=== PATIENT | female | born 1990 | race Caucasian/White ===

== ENCOUNTER → 2016-07-23 | Outpatient (CLI) | payer OTHER ==
[2016-07-23 11:19] LABS: Basophils % (A) 0 %; CHCM 32.2; Eosinophils # (A) 0.1 k/uL (0-0.7); Eosinophils % (A) 3 %; HCT 39.4 % (34.0-46.0); HDW 3.12; Hypochromasia Slight; Luc % (Auto) 2; Lymphocytes # (A) 1.4 k/uL (1.0-4.8); Lymphocytes % (A) 30 %; MCH 26.7 pg (25.0-35.0); MCV 80.9 fL (80.0-100.0); Mean Platelet Volume 6.9; Monocytes # (A) 0.2 k/uL (0-1.0); Monocytes % (A) 4 %; Neutrophils # (A) 2.9 k/uL (1.3-7.7); Neutrophils % (A) 61 %; RBC 4.87 m/uL (3.80-5.40); RDW 14.1 % (11.5-15.5); WBC 4.7 k/uL (3.8-10.6); WBC (Perox) 4.63
[2016-07-23 11:48] LABS: ALT 24 U/L (9-52); AST 20 U/L (14-36); Alkaline Phosphatase 64 U/L (38-126); Anion Gap 9 mmol/L; Blood Urea Nitrogen 17 mg/dL (7-17); Calcium 9.4 mg/dL (8.4-10.2); Carbon Dioxide 24 mmol/L (22-30); Chloride 108 mmol/L (98-107); Glucose 108 mg/dL (74-99); Non-African American GFR(MDRD) >60 (>60 ml/min/1.73 sqM); Potassium 4.1 mmol/L (3.5-5.1); Sodium 141 mmol/L (137-145); Total Bilirubin 0.5 mg/dL (0.2-1.3); Total Protein 7.5 g/dL (6.3-8.2)
[2016-07-24 17:05] LABS: LOG HIV Copies/mL 4.34 (<1.60)
[2016-08-01 08:18] LABS: Mis test requested (Blood) HIV-1 Integrase Geno
== END | disposition home or self-care (01) ==
LOC: LABWHC1 10:58
PROVIDERS: ATTEND Internal Medicine Infectious Disease
DX: B20 Human immunodeficiency virus [HIV] disease (principal)
CPT/HCPCS: 36415; 80053; 85025; 86360; 86780; 87536; 87901; 87906

== ENCOUNTER → 2016-10-26 | Outpatient (CLI) | payer OTHER ==
[2016-10-26 12:53] LABS: CH 27.7; CHCM 33.5; HCT 40.7 % (34.0-46.0); HDW 3.02; HGB 13.2 gm/dL (11.4-16.0); MCH 26.9 pg (25.0-35.0); MCHC 32.4 g/dL (31.0-37.0); Mean Platelet Volume 8.2; RDW 15.3 % (11.5-15.5); WBC 4.4 k/uL (3.8-10.6)
[2016-10-26 13:08] LABS: ALT 26 U/L (9-52); AST 19 U/L (14-36); Alkaline Phosphatase 68 U/L (38-126); Anion Gap 11 mmol/L; Blood Urea Nitrogen 11 mg/dL (7-17); Calcium 9.7 mg/dL (8.4-10.2); Carbon Dioxide 27 mmol/L (22-30); Chloride 104 mmol/L (98-107); Glucose 93 mg/dL (74-99); Non-African American GFR(MDRD) >60 (>60 ml/min/1.73 sqM); Potassium 4.4 mmol/L (3.5-5.1); Sodium 142 mmol/L (137-145); Total Bilirubin 0.4 mg/dL (0.2-1.3); Total Protein 7.7 g/dL (6.3-8.2)
[2016-10-27 12:01] LABS: LOG HIV Copies/mL <1.60 (<1.60)
== END | disposition home or self-care (01) ==
LOC: LABWHC1 12:05
PROVIDERS: ATTEND Internal Medicine Infectious Disease
DX: B20 Human immunodeficiency virus [HIV] disease (principal)
CPT/HCPCS: 36415; 80053; 85027; 86360; 87536

== ENCOUNTER → 2017-02-28 | Outpatient (CLI) | payer OTHER ==
[2017-02-28 14:23] LABS: Basophils % (A) 0 %; Eosinophils # (A) 0.1 k/uL (0-0.7); Eosinophils % (A) 2 %; HCT 40.8 % (34.0-46.0); HGB 13.2 gm/dL (11.4-16.0); Hypochromasia Slight; Lymphocytes # (A) 1.4 k/uL (1.0-4.8); Lymphocytes % (A) 27 %; MCH 27.7 pg (25.0-35.0); MCHC 32.3 g/dL (31.0-37.0); MCV 85.7 fL (80.0-100.0); Mean Platelet Volume 7.7; Monocytes # (A) 0.2 k/uL (0-1.0); Monocytes % (A) 4 %; Neutrophils # (A) 3.3 k/uL (1.3-7.7); Neutrophils % (A) 65 %; Platelet Count 194 k/uL (150-450); RBC 4.76 m/uL (3.80-5.40); RDW 15.1 % (11.5-15.5); WBC 5.1 k/uL (3.8-10.6)
[2017-02-28 14:28] LABS: ALT 25 U/L (9-52); AST 17 U/L (14-36); Albumin 4.3 g/dL (3.5-5.0); Alkaline Phosphatase 70 U/L (38-126); Anion Gap 10 mmol/L; Blood Urea Nitrogen 11 mg/dL (7-17); Calcium 9.6 mg/dL (8.4-10.2); Carbon Dioxide 30 mmol/L (22-30); Chloride 103 mmol/L (98-107); Glucose 85 mg/dL (74-99); Sodium 143 mmol/L (137-145); Total Bilirubin 0.2 mg/dL (0.2-1.3); Total Protein 7.1 g/dL (6.3-8.2)
[2017-03-01 12:47] LABS: T4/T8 Ratio (CD4:CD8) 0.7 (1.0-3.7)
[2017-03-01 14:53] LABS: HIV-1 RNA Not detected (Not detected); HIV-1 RNA, Quant <40 Copies/mL (<40)
== END | disposition home or self-care (01) ==
LOC: LABWHC1 13:51
PROVIDERS: ATTEND Internal Medicine Infectious Disease
DX: B20 Human immunodeficiency virus [HIV] disease (principal)
CPT/HCPCS: 36415; 80053; 85025; 86360; 87536

== ENCOUNTER 2019-10-17 20:51 | Inpatient (IN) | payer OTHER ==
--- NOTE | 2019-10-17 21:38 | XR ---
EXAMINATION TYPE: XR chest 2V DATE OF EXAM: 10/17/2019 COMPARISON: 11/20/2012 INDICATION: Short of breath TECHNIQUE: Frontal and lateral views of the chest are obtained. FINDINGS: The heart size is normal. The pulmonary vasculature is normal. Mild bibasilar infiltrates are present. A focal consolidation is not identified. Findings are nonspec ific. Infectious etiology should be considered. Consider atypical pneumonia.. IMPRESSION: 1. Mild bibasilar infiltrates which are nonspecific. Correlate for subsegmental atelectasis. Consider atypical pneumonia.
[2019-10-17 22:03] LABS: Basophils % (A) 1 %; Eosinophils % (A) 1 %; HCT 44.5 % (34.0-46.0); HGB 15.1 gm/dL (11.4-16.0); Lymphocytes # (A) 1.3 k/uL (1.0-4.8); Lymphocytes % (A) 28 %; MCH 28.5 pg (25.0-35.0); MCV 83.7 fL (80.0-100.0); Mean Platelet Volume 8.5; Monocytes # (A) 0.2 k/uL (0-1.0); Monocytes % (A) 4 %; Neutrophils # (A) 3.2 k/uL (1.3-7.7); Neutrophils % (A) 66 %; Platelet Count 193 k/uL (150-450); RBC 5.32 m/uL (3.80-5.40); RDW 12.7 % (11.5-15.5); WBC 4.9 k/uL (3.8-10.6)
[2019-10-17 22:10] LABS: Appearance,Urine Cloudy (Clear); Bacteria,Urine Occasional /hpf; Bilirubin,Urine Negative (Negative); Blood,Urine Moderate (Negative); Budding Yeast,Urine Occasional /hpf; Color,Urine Light Yellow; Glucose,Urine (UA) Negative (Negative); Ketones,Urine Negative (Negative); Leukocyte Esterase,Urine Large (Negative); Nitrite,Urine Negative (Negative); PH, Urine 6.5 (5.0-8.0); Protein,Urine Negative (Negative); RBC,Urine 3 /hpf (0-5); Specific Gravity,Urine 1.004 (1.001-1.035); Squamous Epithelial Cell,Urine 8 /hpf (0-4); Urobilinogen,Urine <2.0 mg/dL (<2.0); WBC,Urine 21 /hpf (0-5)
[2019-10-17 22:16] LABS: ALT 28 U/L (4-34); AST 49 U/L (14-36); African American GFR (CKD) >90 (>60 ml/min/1.73 sqM); Alkaline Phosphatase 70 U/L (38-126); Anion Gap 11 mmol/L; Blood Urea Nitrogen 7 mg/dL (7-17); Carbon Dioxide 28 mmol/L (22-30); Chloride 99 mmol/L (98-107); Glucose 99 mg/dL (74-99); Non-African American GFR(CKD) >90 (>60 ml/min/1.73 sqM); Potassium 3.4 mmol/L (3.5-5.1); Sodium 138 mmol/L (137-145); Total Bilirubin 0.7 mg/dL (0.2-1.3); Total Protein 8.6 g/dL (6.3-8.2)
--- NOTE | 2019-10-17 22:30 | ED ---
SOB HPI - General Source: patient Mode of arrival: ambulatory Limitations: no limitations <Monique Orellana - Last Filed: 10/18/19 10:11> <Katerina Kolb - Last Filed: 10/21/19 22:58> - General Chief Complaint: Shortness of Breath Stated Complaint: SOB, Dx Bronchitis Time Seen by Provider: 10/17/19 21:03 - History of Present Illness Initial Comments: 29-year-old female with history of asthma presents today for chief complaint of cough, URI. Patient states for roughly 3 weeks she has had a cough and concern for covid. She states that her symptoms have been progressive especially the dyspnea. She states lying down or any activity causes significant SOB. Patient states she doesnt have chest pain but feels like she cant breath correctly. Patient admits to chills, on and off fevers. Denies sore throat, diarrhea, vomiting, abdominal pain, denies neck stiffness. Patient upon arrival does appear to have some dyspnea when talking but is able to complete full sentences. HR elevated, oxygen saturation is satisfactory. States she was evaluated and discharged from [facility] yesterday but symptoms have worsened. (Monique Orellana) - Related Data Home Medications Medication Instructions Recorded Confirmed Azithromycin [Zithromax Z-pack] See Taper PO DIRECTED 10/17/19 10/17/19 Allergies Allergy/AdvReac Type Severity Reaction Status Date / Time cephalexin monohydrate Allergy Dyspnea Verified 10/17/19 22:47 [From Keflex] Penicillins Allergy Swelling Verified 10/17/19 22:47 phenytoin sodium Allergy Unknown Verified 10/17/19 22:47 [From Dilantin] phenytoin sodium extended Allergy Unknown Verified 10/17/19 22:47 [From Dilantin] Review of Systems ROS Other: All systems not noted in ROS Statement are negative. <Monique Orellana - Last Filed: 10/18/19 10:11> ROS Other: All systems not noted in ROS Statement are negative. <Katerina Kolb - Last Filed: 10/21/19 22:58> ROS Statement: Those systems with pertinent positive or pertinent negative responses have been documented in the HPI. Past Medical History Past Medical History: Asthma History of Any Multi-Drug Resistant Organisms: None Reported Past Surgical History: No Surgical Hx Reported Past Psychological History: No Psychological Hx Reported Smoking Status: Former smoker Past Alcohol Use History: None Reported Past Drug Use History: None Reported <Monique Orellana - Last Filed: 10/18/19 10:11> General Exam Limitations: no limitations <Monique Orellana - Last Filed: 10/18/19 10:11> - General Exam Comments Initial Comments: General: The patient is awake and alert, in no distress Eye: +3 mm pupils are equal, round and reactive to light, extra-ocular movements are intact. No nystagmus. There is normal conjunctiva bilaterally. No signs of icterus. Ears, nose, mouth and throat: There are moist mucous membranes and no oral lesions. Uvula midline. Neck: The neck is supple, there is no tenderness or JVD. No nuchal rigidity Cardiovascular: There is a regular rate and rhythm. No murmur, rub or gallop is appreciated. Respiratory: Respirations are mildly labored, breath sounds are equal. Rhonchi noted. No wheezes, stridor, rales. Gastrointestinal: Soft, non-distended, non-tender abdomen without masses or organomegaly noted. There is no rebound or guarding present. Musculoskeletal: Normal ROM, no tenderness. Strength 5/5. Sensation intact. Radial pulses equal bilaterally 2+. Neurological: A&O x 3. CN II-XII intact grossly, There are no obvious motor or sensory deficits. Coordination appears grossly intact. Speech is normal. Skin: Skin is warm and dry and no rashes or lesions are noted. Psychiatric: Cooperative, appropriate mood & affect, normal judgment. (Monique Orellana) Course Vital Signs 10/17/19 10/17/19 10/17/19 20:57 22:01 22:31 Temperature 98.9 F Pulse Rate 127 H 118 H Pulse Rate [ Pulse Oximetery ] Respiratory 18 18 Rate Blood Pressure 128/87 Blood Pressure [Left Arm] O2 Sat by Pulse 96 100 Oximetry 10/17/19 10/18/19 23:30 00:19 Temperature 98.1 F 98.6 F Pulse Rate 106 H Pulse Rate [ 109 H Pulse Oximetery ] Respiratory 20 21 Rate Blood Pressure 118/97 Blood Pressure 122/88 [Left Arm] O2 Sat by Pulse 95 98 Oximetry Medical Decision Making - Lab Data Result diagrams: 10/18/19 06:39 10/18/19 06:39 <Monique Orellana - Last Filed: 10/18/19 10:11> - Lab Data Result diagrams: 10/21/19 06:24 10/21/19 06:23 <Katerina Kolb - Last Filed: 10/21/19 22:58> - Medical Decision Making Labs stable, but there is a pattern of slight elevation of AST, D-dimer and LDH consistent with concern for Covid. Patient CTA ground glass atypical pneumonia. No PE. Patient EKG sinus tachycardia. Patient troponin (-). Given patient appears SOB, with concerning b/l pneumonia on XR will admit for monitoring. Patient did not have wheeze and appeared to have good airmovement, q4h albuterol treatments scheduled. Patient case discussed wtih Dr. Kolb who is agreeable to care plan. At this time I do not feel patient is septic. (Monique Orellana) I was available for consultation in the emergency department. The history and physical exam were done by the midlevel provider. I was consulted for this patients care. I reviewed the case with the midlevel provider and based on their presentation of the patient, I agree with the assessment, medical decision making and plan of care as documented. I evaluated the patient myself Chart was dictated using [employer] PTY dictation software. Attempts were made to correct any dictation errors however some typographical errors may persist. Patient was seen during a national state of emergency due to the Covid-19 pandemic. (Katerina Kolb) - Lab Data Lab Results 10/17/19 10/17/19 10/17/19 Range/Units 21:50 21:50 21:50 WBC 4.9 (3.8-10.6) k/uL RBC 5.32 (3.80-5.40) m/uL Hgb 15.1 (11.4-16.0) gm/dL Hct 44.5 (34.0-46.0) % MCV 83.7 (80.0-100.0) fL MCH 28.5 (25.0-35.0) pg MCHC 34.0 (31.0-37.0) g/dL RDW 12.7 (11.5-15.5) % Plt Count 193 (150-450) k/uL Neutrophils % 66 % Lymphocytes % 28 % Monocytes % 4 % Eosinophils % 1 % Basophils % 1 % Neutrophils # 3.2 (1.3-7.7) k/uL Lymphocytes # 1.3 (1.0-4.8) k/uL Monocytes # 0.2 (0-1.0) k/uL Eosinophils # 0.0 (0-0.7) k/uL Basophils # 0.0 (0-0.2) k/uL Hypochromasia PT (9.0-12.0) sec INR (<1.2) APTT (22.0-30.0) sec Fibrinogen (200-500) mg/dL D-Dimer (<0.60) mg/L FEU Sodium 138 (137-145) mmol/L Potassium 3.4 L (3.5-5.1) mmol/L Chloride 99 (98-107) mmol/L Carbon Dioxide 28 (22-30) mmol/L Anion Gap 11 mmol/L BUN 7 (7-17) mg/dL Creatinine 0.68 (0.52-1.04) mg/dL Est GFR (CKD-EPI)AfAm >90 (>60 ml/min/1.73 sqM) Est GFR (CKD-EPI)NonAf >90 (>60 ml/min/1.73 sqM) Glucose 99 (74-99) mg/dL Plasma Lactic Acid Gerson (0.7-2.0) mmol/L Calcium 9.0 (8.4-10.2) mg/dL Magnesium (1.6-2.3) mg/dL Ferritin (10.0-291.0) ng/mL Total Bilirubin 0.7 (0.2-1.3) mg/dL AST 49 H (14-36) U/L ALT 28 (4-34) U/L Alkaline Phosphatase 70 (38-126) U/L Lactate Dehydrogenase (313-618) U/L LD Isoenzymes (100-200) U/L LD 1 (19-38) % LD 2 (30-43) % LD 3 (16-26) % LD 4 (3-12) % LD 5 (3-14) % Creatine Kinase (30-135) U/L Troponin I (0.000-0.034) ng/mL C-Reactive Protein (<10.0) mg/L NT-Pro-B Natriuret Pep pg/mL Total Protein 8.6 H (6.3-8.2) g/dL Albumin 4.0 (3.5-5.0) g/dL Procalcitonin (0.02-0.09) ng/mL Urine Color Light Yellow Urine Appearance Cloudy H (Clear) Urine pH 6.5 (5.0-8.0) Ur Specific [place] 1.004 (1.001-1.035) Urine Protein Negative (Negative) Urine Glucose (UA) Negative (Negative) Urine Ketones Negative (Negative) Urine Blood Moderate H (Negative) Urine Nitrite Negative (Negative) Urine Bilirubin Negative (Negative) Urine Urobilinogen <2.0 (<2.0) mg/dL Ur Leukocyte Esterase Large H (Negative) Urine RBC 3 (0-5) /hpf Urine WBC 21 H (0-5) /hpf Ur Squamous Epith Cells 8 H (0-4) /hpf Urine Bacteria Occasional H (None) /hpf Urine Yeast (Budding) Occasional H (None) /hpf Urine HCG, Qual (Not Detectd) Coronavirus (PCR) (Not Detected) 10/17/19 10/17/19 10/17/19 Range/Units 21:50 21:50 21:50 WBC (3.8-10.6) k/uL RBC (3.80-5.40) m/uL Hgb (11.4-16.0) gm/dL Hct (34.0-46.0) % MCV (80.0-100.0) fL MCH (25.0-35.0) pg MCHC (31.0-37.0) g/dL RDW (11.5-15.5) % Plt Count (150-450) k/uL Neutrophils % % Lymphocytes % % Monocytes % % Eosinophils % % Basophils % % Neutrophils # (1.3-7.7) k/uL Lymphocytes # (1.0-4.8) k/uL Monocytes # (0-1.0) k/uL Eosinophils # (0-0.7) k/uL Basophils # (0-0.2) k/uL Hypochromasia PT (9.0-12.0) sec INR (<1.2) APTT (22.0-30.0) sec Fibrinogen (200-500) mg/dL D-Dimer (<0.60) mg/L FEU Sodium (137-145) mmol/L Potassium (3.5-5.1) mmol/L Chloride (98-107) mmol/L Carbon Dioxide (22-30) mmol/L Anion Gap mmol/L BUN (7-17) mg/dL Creatinine (0.52-1.04) mg/dL Est GFR (CKD-EPI)AfAm (>60 ml/min/1.73 sqM) Est GFR (CKD-EPI)NonAf (>60 ml/min/1.73 sqM) Glucose (74-99) mg/dL Plasma Lactic Acid Gerson (0.7-2.0) mmol/L Calcium (8.4-10.2) mg/dL Magnesium (1.6-2.3) mg/dL Ferritin (10.0-291.0) ng/mL Total Bilirubin (0.2-1.3) mg/dL AST (14-36) U/L ALT (4-34) U/L Alkaline Phosphatase (38-126) U/L Lactate Dehydrogenase (313-618) U/L LD Isoenzymes (100-200) U/L LD 1 (19-38) % LD 2 (30-43) % LD 3 (16-26) % LD 4 (3-12) % LD 5 (3-14) % Creatine Kinase (30-135) U/L Troponin I <0.012 (0.000-0.034) ng/mL C-Reactive Protein (<10.0) mg/L NT-Pro-B Natriuret Pep 29 pg/mL Total Protein (6.3-8.2) g/dL Albumin (3.5-5.0) g/dL Procalcitonin (0.02-0.09) ng/mL Urine Color Urine Appearance (Clear) Urine pH (5.0-8.0) Ur Specific [place] (1.001-1.035) Urine Protein (Negative) Urine Glucose (UA) (Negative) Urine Ketones (Negative) Urine Blood (Negative) Urine Nitrite (Negative) Urine Bilirubin (Negative) Urine Urobilinogen (<2.0) mg/dL Ur Leukocyte Esterase (Negative) Urine RBC (0-5) /hpf Urine WBC (0-5) /hpf Ur Squamous Epith Cells (0-4) /hpf Urine Bacteria (None) /hpf Urine Yeast (Budding) (None) /hpf Urine HCG, Qual Not Detected (Not Detectd) Coronavirus (PCR) (Not Detected) 10/17/19 10/17/19 10/17/19 Range/Units 22:47 22:47 22:47 WBC (3.8-10.6) k/uL RBC (3.80-5.40) m/uL Hgb (11.4-16.0) gm/dL Hct (34.0-46.0) % MCV (80.0-100.0) fL MCH (25.0-35.0) pg MCHC (31.0-37.0) g/dL RDW (11.5-15.5) % Plt Count (150-450) k/uL Neutrophils % % Lymphocytes % % Monocytes % % Eosinophils % % Basophils % % Neutrophils # (1.3-7.7) k/uL Lymphocytes # (1.0-4.8) k/uL Monocytes # (0-1.0) k/uL Eosinophils # (0-0.7) k/uL Basophils # (0-0.2) k/uL Hypochromasia PT 11.6 (9.0-12.0) sec INR 1.1 (<1.2) APTT 26.1 (22.0-30.0) sec Fibrinogen (200-500) mg/dL D-Dimer 0.70 H (<0.60) mg/L FEU Sodium (137-145) mmol/L Potassium (3.5-5.1) mmol/L Chloride (98-107) mmol/L Carbon Dioxide (22-30) mmol/L Anion Gap mmol/L BUN (7-17) mg/dL Creatinine (0.52-1.04) mg/dL Est GFR (CKD-EPI)AfAm (>60 ml/min/1.73 sqM) Est GFR (CKD-EPI)NonAf (>60 ml/min/1.73 sqM) Glucose (74-99) mg/dL Plasma Lactic Acid Gerson 1.0 (0.7-2.0) mmol/L Calcium (8.4-10.2) mg/dL Magnesium 1.9 (1.6-2.3) mg/dL Ferritin 447.6 H (10.0-291.0) ng/mL Total Bilirubin (0.2-1.3) mg/dL AST (14-36) U/L ALT (4-34) U/L Alkaline Phosphatase (38-126) U/L Lactate Dehydrogenase 1081 H (313-618) U/L LD Isoenzymes (100-200) U/L LD 1 (19-38) % LD 2 (30-43) % LD 3 (16-26) % LD 4 (3-12) % LD 5 (3-14) % Creatine Kinase (30-135) U/L Troponin I (0.000-0.034) ng/mL C-Reactive Protein 36.0 H (<10.0) mg/L NT-Pro-B Natriuret Pep pg/mL Total Protein (6.3-8.2) g/dL Albumin (3.5-5.0) g/dL Procalcitonin (0.02-0.09) ng/mL Urine Color Urine Appearance (Clear) Urine pH (5.0-8.0) Ur Specific [place] (1.001-1.035) Urine Protein (Negative) Urine Glucose (UA) (Negative) Urine Ketones (Negative) Urine Blood (Negative) Urine Nitrite (Negative) Urine Bilirubin (Negative) Urine Urobilinogen (<2.0) mg/dL Ur Leukocyte Esterase (Negative) Urine RBC (0-5) /hpf Urine WBC (0-5) /hpf Ur Squamous Epith Cells (0-4) /hpf Urine Bacteria (None) /hpf Urine Yeast (Budding) (None) /hpf Urine HCG, Qual (Not Detectd) Coronavirus (PCR) (Not Detected) 10/17/19 10/17/19 10/18/19 Range/Units 22:47 23:17 06:39 WBC 3.2 L (3.8-10.6) k/uL RBC 4.25 (3.80-5.40) m/uL Hgb 11.8 D (11.4-16.0) gm/dL Hct 36.4 (34.0-46.0) % MCV 85.7 (80.0-100.0) fL MCH 27.9 (25.0-35.0) pg MCHC 32.6 (31.0-37.0) g/dL RDW 12.6 (11.5-15.5) % Plt Count 161 (150-450) k/uL Neutrophils % % Lymphocytes % % Monocytes % % Eosinophils % % Basophils % % Neutrophils # (1.3-7.7) k/uL Lymphocytes # (1.0-4.8) k/uL Monocytes # (0-1.0) k/uL Eosinophils # (0-0.7) k/uL Basophils # (0-0.2) k/uL Hypochromasia Slight PT (9.0-12.0) sec INR (<1.2) APTT (22.0-30.0) sec Fibrinogen (200-500) mg/dL D-Dimer (<0.60) mg/L FEU Sodium (137-145) mmol/L Potassium (3.5-5.1) mmol/L Chloride (98-107) mmol/L Carbon Dioxide (22-30) mmol/L Anion Gap mmol/L BUN (7-17) mg/dL Creatinine (0.52-1.04) mg/dL Est GFR (CKD-EPI)AfAm (>60 ml/min/1.73 sqM) Est GFR (CKD-EPI)NonAf (>60 ml/min/1.73 sqM) Glucose (74-99) mg/dL Plasma Lactic Acid Gerson (0.7-2.0) mmol/L Calcium (8.4-10.2) mg/dL Magnesium (1.6-2.3) mg/dL Ferritin (10.0-291.0) ng/mL Total Bilirubin (0.2-1.3) mg/dL AST (14-36) U/L ALT (4-34) U/L Alkaline Phosphatase (38-126) U/L Lactate Dehydrogenase (313-618) U/L LD Isoenzymes (100-200) U/L LD 1 (19-38) % LD 2 (30-43) % LD 3 (16-26) % LD 4 (3-12) % LD 5 (3-14) % Creatine Kinase (30-135) U/L Troponin I (0.000-0.034) ng/mL C-Reactive Protein (<10.0) mg/L NT-Pro-B Natriuret Pep pg/mL Total Protein (6.3-8.2) g/dL Albumin (3.5-5.0) g/dL Procalcitonin 0.08 (0.02-0.09) ng/mL Urine Color Urine Appearance (Clear) Urine pH (5.0-8.0) Ur Specific [place] (1.001-1.035) Urine Protein (Negative) Urine Glucose (UA) (Negative) Urine Ketones (Negative) Urine Blood (Negative) Urine Nitrite (Negative) Urine Bilirubin (Negative) Urine Urobilinogen (<2.0) mg/dL Ur Leukocyte Esterase (Negative) Urine RBC (0-5) /hpf Urine WBC (0-5) /hpf Ur Squamous Epith Cells (0-4) /hpf Urine Bacteria (None) /hpf Urine Yeast (Budding) (None) /hpf Urine HCG, Qual (Not Detectd) Coronavirus (PCR) Not Detected (Not Detected) 10/18/19 10/18/19 10/18/19 Range/Units 06:39 06:39 06:39 WBC (3.8-10.6) k/uL RBC (3.80-5.40) m/uL Hgb (11.4-16.0) gm/dL Hct (34.0-46.0) % MCV (80.0-100.0) fL MCH (25.0-35.0) pg MCHC (31.0-37.0) g/dL RDW (11.5-15.5) % Plt Count (150-450) k/uL Neutrophils % % Lymphocytes % % Monocytes % % Eosinophils % % Basophils % % Neutrophils # (1.3-7.7) k/uL Lymphocytes # (1.0-4.8) k/uL Monocytes # (0-1.0) k/uL Eosinophils # (0-0.7) k/uL Basophils # (0-0.2) k/uL Hypochromasia PT 11.2 (9.0-12.0) sec INR 1.1 (<1.2) APTT (22.0-30.0) sec Fibrinogen 485 (200-500) mg/dL D-Dimer 0.73 H (<0.60) mg/L FEU Sodium 138 (137-145) mmol/L Potassium 3.9 (3.5-5.1) mmol/L Chloride 105 (98-107) mmol/L Carbon Dioxide 30 (22-30) mmol/L Anion Gap 3 mmol/L BUN 7 (7-17) mg/dL Creatinine 0.58 (0.52-1.04) mg/dL Est GFR (CKD-EPI)AfAm >90 (>60 ml/min/1.73 sqM) Est GFR (CKD-EPI)NonAf >90 (>60 ml/min/1.73 sqM) Glucose 89 (74-99) mg/dL Plasma Lactic Acid Gerson (0.7-2.0) mmol/L Calcium 7.9 L (8.4-10.2) mg/dL Magnesium 1.9 (1.6-2.3) mg/dL Ferritin (10.0-291.0) ng/mL Total Bilirubin 0.4 (0.2-1.3) mg/dL AST 50 H (14-36) U/L ALT 29 (4-34) U/L Alkaline Phosphatase 53 (38-126) U/L Lactate Dehydrogenase (313-618) U/L LD Isoenzymes 308 H (100-200) U/L LD 1 11 L (19-38) % LD 2 35 (30-43) % LD 3 31 H (16-26) % LD 4 11 (3-12) % LD 5 12 (3-14) % Creatine Kinase 23 L (30-135) U/L Troponin I (0.000-0.034) ng/mL C-Reactive Protein (<10.0) mg/L NT-Pro-B Natriuret Pep pg/mL Total Protein 6.3 (6.3-8.2) g/dL Albumin 2.8 L (3.5-5.0) g/dL Procalcitonin (0.02-0.09) ng/mL Urine Color Urine Appearance (Clear) Urine pH (5.0-8.0) Ur Specific [place] (1.001-1.035) Urine Protein (Negative) Urine Glucose (UA) (Negative) Urine Ketones (Negative) Urine Blood (Negative) Urine Nitrite (Negative) Urine Bilirubin (Negative) Urine Urobilinogen (<2.0) mg/dL Ur Leukocyte Esterase (Negative) Urine RBC (0-5) /hpf Urine WBC (0-5) /hpf Ur Squamous Epith Cells (0-4) /hpf Urine Bacteria (None) /hpf Urine Yeast (Budding) (None) /hpf Urine HCG, Qual (Not Detectd) Coronavirus (PCR) (Not Detected) 10/18/19 Range/Units 09:20 WBC (3.8-10.6) k/uL RBC (3.80-5.40) m/uL Hgb (11.4-16.0) gm/dL Hct (34.0-46.0) % MCV (80.0-100.0) fL MCH (25.0-35.0) pg MCHC (31.0-37.0) g/dL RDW (11.5-15.5) % Plt Count (150-450) k/uL Neutrophils % % Lymphocytes % % Monocytes % % Eosinophils % % Basophils % % Neutrophils # (1.3-7.7) k/uL Lymphocytes # (1.0-4.8) k/uL Monocytes # (0-1.0) k/uL Eosinophils # (0-0.7) k/uL Basophils # (0-0.2) k/uL Hypochromasia PT (9.0-12.0) sec INR (<1.2) APTT (22.0-30.0) sec Fibrinogen (200-500) mg/dL D-Dimer (<0.60) mg/L FEU Sodium (137-145) mmol/L Potassium (3.5-5.1) mmol/L Chloride (98-107) mmol/L Carbon Dioxide (22-30) mmol/L Anion Gap mmol/L BUN (7-17) mg/dL Creatinine (0.52-1.04) mg/dL Est GFR (CKD-EPI)AfAm (>60 ml/min/1.73 sqM) Est GFR (CKD-EPI)NonAf (>60 ml/min/1.73 sqM) Glucose (74-99) mg/dL Plasma Lactic Acid Gerson 0.7 (0.7-2.0) mmol/L Calcium (8.4-10.2) mg/dL Magnesium (1.6-2.3) mg/dL Ferritin (10.0-291.0) ng/mL Total Bilirubin (0.2-1.3) mg/dL AST (14-36) U/L ALT (4-34) U/L Alkaline Phosphatase (38-126) U/L Lactate Dehydrogenase (313-618) U/L LD Isoenzymes (100-200) U/L LD 1 (19-38) % LD 2 (30-43) % LD 3 (16-26) % LD 4 (3-12) % LD 5 (3-14) % Creatine Kinase (30-135) U/L Troponin I (0.000-0.034) ng/mL C-Reactive Protein (<10.0) mg/L NT-Pro-B Natriuret Pep pg/mL Total Protein (6.3-8.2) g/dL Albumin (3.5-5.0) g/dL Procalcitonin (0.02-0.09) ng/mL Urine Color Urine Appearance (Clear) Urine pH (5.0-8.0) Ur Specific [place] (1.001-1.035) Urine Protein (Negative) Urine Glucose (UA) (Negative) Urine Ketones (Negative) Urine Blood (Negative) Urine Nitrite (Negative) Urine Bilirubin (Negative) Urine Urobilinogen (<2.0) mg/dL Ur Leukocyte Esterase (Negative) Urine RBC (0-5) /hpf Urine WBC (0-5) /hpf Ur Squamous Epith Cells (0-4) /hpf Urine Bacteria (None) /hpf Urine Yeast (Budding) (None) /hpf Urine HCG, Qual (Not Detectd) Coronavirus (PCR) (Not Detected) Disposition Is patient prescribed a controlled substance at d/c from ED?: No Time of Disposition: 23:08 Decision to Admit Reason: Admit from EC Decision Date: 10/17/19 Decision Time: 23:08 <Monique Orellana - Last Filed: 10/18/19 10:11> <Katerina Kolb - Last Filed: 10/21/19 22:58> Clinical Impression: Cough, Dyspnea, Suspected COVID-19 virus infection, Tachycardia Disposition: ADMITTED IP TO THIS HOSP Condition: Stable
[2019-10-17] MEDS ORDERED: SODIUM CHLORIDE 0.9% 1,000 ML IV ONE (22:31)
[2019-10-17] MEDS ORDERED: SODIUM CHLORIDE 0.9% 500 ML 500 ML IV ONE (22:31)
[2019-10-17] MEDS ORDERED: POTASSIUM CHLORIDE ER 20 MEQ TAB.ER PO STA (22:32)
[2019-10-17] MEDS ORDERED: NALOXONE 0.4 MG/ML 1 ML VIAL IV PRN (23:05)
[2019-10-17] MEDS: SODIUM CHLORIDE 0.9% 1,000 ML IV SCH (23:18)
--- NOTE | 2019-10-17 23:18 | CT ---
EXAMINATION TYPE: CT chest angio for PE DATE OF EXAM: 10/17/2019 COMPARISON: None HISTORY: pe CT DLP: 316.1 mGycm Automated exposure control for dose reduction was used. CONTRAST: Performed with IV Contrast, patient injected with 70 mL of Isovue 370. There are 3-D post processed images. There is extensive pulmonary groundglass interstitial edema. There is no pleural effusion. Heart size is normal. There are no hilar masses. There is no mediastinal adenopathy. Thoracic aorta is intact. There is no aneurysm or dissection. There is no pleural effusion or pneumothorax. I see no filling defects in the pulmonary arteries. The bony thorax is intact. There is no compression fracture. Sternum is intact. Upper abdominal soft tissues appear intact. IMPRESSION: No evidence of pulmonary embolism. Extensive groundglass interstitial pulmonary edema. This would be consistent with viral pneumonia.
[2019-10-17] MEDS ORDERED: ALBUTEROL NEBULIZED 2.5 MG/3 ML INHALATION PRN (23:24)
[2019-10-17 23:38] LABS: Magnesium 1.9 mg/dL (1.6-2.3)
[2019-10-17 23:47] LABS: INR 1.1 (<1.2); Prothrombin Time 11.6 sec (9.0-12.0)
[2019-10-17 23:48] LABS: Partial Thromboplastin Time 26.1 sec (22.0-30.0)
[2019-10-17 23:54] LABS: D-Dimer 0.7 mg/L FEU (<0.60)
--- NOTE | 2019-10-18 04:08 | P.HPIM ---
History of Present Illness H&P Date: 10/18/19 The patient is a 29-year-old female with a PMH of mild intermittent asthma who presented to the ED with complaints of shortness of breath, cough, chest discomfort, and lethargy. She notes that her symptoms started roughly 4 weeks ago when she began to feel generalized weakness. She took time off from work and stayed home and noticed that she gradually developed shortness of breath with a nonproductive cough. She reports that her symptoms are worsened with activity including sitting up and are best when she is laying flat in bed. Reported sleeping excessively over the past 2 weeks and notes that due to her symptoms, she also has had a poor appetite and reports losing 30 pounds in the past 4 weeks. He notes that she was seen at a different facility yesterday where she had coronavirus testing for which the results are not back yet. Denied experiencing fevers at home. Notes that she has 6 kids at home of varying ages. Denied loss of sensations of taste or smell. In the emergency room the patient was tachycardic to 127 upon presentation. Chest CTA revealed findings consistent with an atypical pneumonia with no evidence of pulmonary embolism. Laboratory evaluation revealed a d-dimer of 0.7, LDH 1081, CRP 36, potassium 3.4, WBC count 4.9, troponin less than 0.012, and BNP 29. EKG revealed sinus tachycardia at 1 11 bpm with no acute ST/T-wave changes noted as reviewed by me. Review of Systems Pertinent positives and negatives as discussed in HPI, a complete review of systems was performed and all other systems are negative. Past Medical History Past Medical History: Asthma History of Any Multi-Drug Resistant Organisms: None Reported Past Surgical History: No Surgical Hx Reported Past Psychological History: No Psychological Hx Reported Smoking Status: Former smoker Past Alcohol Use History: None Reported Past Drug Use History: None Reported Medications and Allergies Home Medications Medication Instructions Recorded Confirmed Type Azithromycin [Zithromax Z-pack] See Taper PO DIRECTED 10/17/19 10/17/19 History Allergies Allergy/AdvReac Type Severity Reaction Status Date / Time cephalexin monohydrate Allergy Dyspnea Verified 10/17/19 22:47 [From Keflex] Penicillins Allergy Swelling Verified 10/17/19 22:47 phenytoin sodium Allergy Unknown Verified 10/17/19 22:47 [From Dilantin] phenytoin sodium extended Allergy Unknown Verified 10/17/19 22:47 [From Dilantin] Physical Exam Vitals: Vital Signs Temp Pulse Resp BP Pulse Ox 10/17/19 23:30 98.1 F 106 H 20 118/97 95 10/17/19 22:31 118 H 100 10/17/19 22:01 18 10/17/19 20:57 98.9 F 127 H 18 128/87 96 Intake and Output 10/17/19 10/17/19 10/18/19 14:59 22:59 06:59 Other: Weight 68.039 kg General: Ill-appearing female, no distress, appears at stated age, normal weight Derm: no unusual rashes/lesions no unusual ecchymoses, warm, dry Head: atraumatic, normocephalic, symmetric Eyes: EOMI, no lid lag, anicteric sclera, pupils equal round reactive to light ENT: Nose and ears atraumatic, no thrush, no pharyngeal erythema Neck: No thyromegaly, no cervical lymphadenopathy, trachea midline, supple Mouth: no lip lesion, mucus membranes moist Cardiovascular: S1S2 reg, tachycardic, no murmur, positive posterior tibial pulse bilateral, no edema, capillary refill less than 2 seconds Lungs: CTA bilateral, no rhonchi, no rales , no accessory muscle use Abdominal: soft, nontender to palpation, no guarding, no appreciable organomegaly, normal bowel sounds Ext: no gross muscle atrophy, muscle strength 5 out of 5 in all 4 extremities grossly, no contractures, Neuro: CN II-XI grossly intact, light touch intact all 4 extremities, finger to nose within normal limits, Psych: Alert, oriented, appropriate affect Results CBC & Chem 7: 10/17/19 21:50 10/17/19 21:50 Labs: Abnormal Lab Results - Last 24 Hours (Table) 10/17/19 10/17/19 10/17/19 Range/Units 21:50 21:50 22:47 D-Dimer 0.70 H (<0.60) mg/L FEU Potassium 3.4 L (3.5-5.1) mmol/L AST 49 H (14-36) U/L Lactate Dehydrogenase (313-618) U/L C-Reactive Protein (<10.0) mg/L Total Protein 8.6 H (6.3-8.2) g/dL Urine Appearance Cloudy H (Clear) Urine Blood Moderate H (Negative) Ur Leukocyte Esterase Large H (Negative) Urine WBC 21 H (0-5) /hpf Ur Squamous Epith Cells 8 H (0-4) /hpf Urine Bacteria Occasional H (None) /hpf Urine Yeast (Budding) Occasional H (None) /hpf 10/17/19 Range/Units 22:47 D-Dimer (<0.60) mg/L FEU Potassium (3.5-5.1) mmol/L AST (14-36) U/L Lactate Dehydrogenase 1081 H (313-618) U/L C-Reactive Protein 36.0 H (<10.0) mg/L Total Protein (6.3-8.2) g/dL Urine Appearance (Clear) Urine Blood (Negative) Ur Leukocyte Esterase (Negative) Urine WBC (0-5) /hpf Ur Squamous Epith Cells (0-4) /hpf Urine Bacteria (None) /hpf Urine Yeast (Budding) (None) /hpf Assessment and Plan Plan: Suspected Covid-19 infection -Start dexamethasone 6 mg oral for 10 days -Start Lovenox 40 mg daily -Supplemental oxygen -Isolation precautions -Monitor daily labs Mild intermittent asthma, not in acute exacerbation -Albuterol inhaler DVT prophylaxis -Lovenox The patient is admitted with an anticipated less than 2 midnight stay for evaluation of Covid-19 infection CODE STATUS: Full Code Discussed with: Patient Anticipated discharge date: 1-[address]: Home A total of 40 minutes was spent on the care of this complex patient more than 50% of the time was spent in counseling and care coordination.
[2019-10-18] MEDS: SODIUM CHLORIDE 0.9% 1,000 ML IV SCH ×3 (06:12→16:16)
[2019-10-18 07:40] LABS: ALT 29 U/L (4-34); AST 50 U/L (14-36); African American GFR (CKD) >90 (>60 ml/min/1.73 sqM); Albumin 2.8 g/dL (3.5-5.0); Alkaline Phosphatase 53 U/L (38-126); Anion Gap 3 mmol/L; Blood Urea Nitrogen 7 mg/dL (7-17); Calcium 7.9 mg/dL (8.4-10.2); Carbon Dioxide 30 mmol/L (22-30); Chloride 105 mmol/L (98-107); Creatine Kinase 23 U/L (30-135); Glucose 89 mg/dL (74-99); Magnesium 1.9 mg/dL (1.6-2.3); Non-African American GFR(CKD) >90 (>60 ml/min/1.73 sqM); Potassium 3.9 mmol/L (3.5-5.1); Sodium 138 mmol/L (137-145); Total Bilirubin 0.4 mg/dL (0.2-1.3); Total Protein 6.3 g/dL (6.3-8.2)
[2019-10-18 07:47] LABS: HCT 36.4 % (34.0-46.0); Hypochromasia Slight; MCH 27.9 pg (25.0-35.0); MCHC 32.6 g/dL (31.0-37.0); MCV 85.7 fL (80.0-100.0); Mean Platelet Volume 8.6; Platelet Count 161 k/uL (150-450); RBC 4.25 m/uL (3.80-5.40); RDW 12.6 % (11.5-15.5); WBC 3.2 k/uL (3.8-10.6)
[2019-10-18 07:48] LABS: HGB 11.8 gm/dL (11.4-16.0)
[2019-10-18] MEDS ORDERED: SODIUM CHLORIDE 0.9% 1,000 ML IV ONE (08:10)
[2019-10-18] MEDS: ACETAMINOPHEN TAB 325 MG TAB PO PRN ×2 (08:17→14:56)
[2019-10-18] MEDS: ENOXAPARIN 40 MG/0.4 ML SYRINGE SQ SCH (08:18)
[2019-10-18 08:34] LABS: D-Dimer 0.73 mg/L FEU (<0.60); INR 1.1 (<1.2); Prothrombin Time 11.2 sec (9.0-12.0)
[2019-10-18] MEDS: dexAMETHasone 2 MG TAB PO SCH (08:53)
[2019-10-18] MEDS ORDERED: dexAMETHasone 2 MG TAB PO SCH (09:00)
[2019-10-18 10:44] LABS: Ferritin 447.6 ng/mL (10.0-291.0)
[2019-10-18 11:43] VITALS: BMI 26.2
--- NOTE | 2019-10-18 13:43 | P.PN ---
Subjective Progress Note Date: 10/18/19 Principal diagnosis: fatigue Patient is a 29-year-old female with a history of mild intermittent asthma, prior tobacco abuse who presented to the ER with shortness of breath, cough, in fact he that it started approximately 4 weeks ago. It has been so severe that she has been mostly laying down at home and not eating or drinking much. On arrival to the ER she was tachycardic with a pulse of 127 was 96% on room air. Laboratory analysis showed d-dimer 0.7, potassium 3.4, ferritin 447, ALT 49, LDH 1081, CRP 36, total protein 8.6. Chest x-ray showed bibasilar infil trates. CTA of the chest showed no evidence of PE but extensive groundglass interstitial pulmonary edema consistent with viral pneumonia. She was started on IV fluids and potassium. She was tested for COVID. She was admitted for further monitoring. On the morning after admission her fever spiked at 101.7 and she was tachycardic to 122. Her room air pulse ox was 88%. She met sepsis criteria and was therefore transitioned to inpatient. Pulmonary was consulted. She has not started on IV antibiotics as her pro-calcitonin was 0.08 consistent with likely viral origin but not bacterial. She was started on dexamethasone. Patient seen and examined at bedside. She reports that she is very dyspneic with exercise. She states she is having a cough but that is getting better. She states she feels much better than yesterday. When she went without her oxygen this morning to check room air pulse ox she felt extremely weak and fatigued. She is feeling somewhat better now. At home she also reports chest discomfort and tightness that occurred when lying flat or with exercise. It would resolve with sitting straight up in the chair. She denies any known Covid exposures. She also denies any recent change in home detergents, cleaning products, soaps, carpeting, new pets or animals in the house. No one else at home has been sick. She has not been working. She has been having grocery delivery or her has been picking up for groceries. They do have 3 children of her own as well as 3 stepchildren which go back and forth between their house and her mother's house. General: Toxic appearing, mild distress, appears at stated age Derm: warm, dry Head: atraumatic, normocephalic, symmetric Eyes: EOMI, no lid lag, anicteric sclera Mouth: no lip lesion, mucous membranes dry Cardiovascular: S1S2 reg, no murmur, positive posterior tibial pulse bilateral, Lungs: Decreased breath sounds bilateral, 3 word conversational dyspnea, no accessory muscle use Abdominal: soft, nontender to palpation, no guarding, no appreciable organomegaly Ext: no gross muscle atrophy, no edema, no contractures Neuro: CN II-XI grossly intact, no focal neuro deficits Psych: Alert, oriented, appropriate affect Pneumonitis, suspect viral with sepsis, acute hypoxic respiratory failure -Await SARS Covid to testing -Dexamethasone -IV fluids -Supportive care -Consult pulmonary to rule out other etiologies of pneumonitis -Follow ferritin, LDH, d-dimer, AST/ALT levels, CRP, and CK Pleuritic chest pain -Likely related to above -Check echocardiogram to rule out viral pericarditis -Initial troponin negative Social stressors - no insurance Clinical dehydration, resolved Transitioned to inpatient status secondary to pneumonia with sepsis and acute hypoxic respiratory failure DVT prophylaxis: Lovenox Discussed with: PAtient, nursing Anticipated discharge: 3-[address]: Home A total of 65 minutes was spent on the care of this complex patient more than 50% of the time was spent in counseling and care coordination. Objective - Vital Signs Vital signs: Vital Signs Temp 98.0 F 10/18/19 11:00 Pulse 103 H 10/18/19 11:00 Resp 16 10/18/19 11:00 BP 104/72 10/18/19 11:00 Pulse Ox 100 10/18/19 11:00 Intake & Output 10/17/19 10/18/19 10/18/19 18:59 06:59 18:59 Intake Total 400 2480 Balance 400 2480 Weight 71.5 kg 71.5 kg Intake: IV 2060 Invasive Line 1 20 Sodium Chloride 0.9% 1, 1040 000 ml @ 130 mls/hr IV . Q7H42M [facility] Rx#:[id number] Sodium Chloride 0.9% 1, 1000 000 ml @ 999 mls/hr IV . Q1H1M [facility] Rx#:[id number] Oral 400 420 Other: Voiding Method Toilet Toilet # Voids 2 - Labs CBC & Chem 7: 10/18/19 06:39 10/18/19 06:39 Labs: Abnormal Lab Results - Last 24 Hours (Table) 10/17/19 10/17/19 10/17/19 Range/Units 21:50 21:50 22:47 WBC (3.8-10.6) k/uL D-Dimer 0.70 H (<0.60) mg/L FEU Potassium 3.4 L (3.5-5.1) mmol/L Calcium (8.4-10.2) mg/dL Ferritin (10.0-291.0) ng/mL AST 49 H (14-36) U/L Lactate Dehydrogenase (313-618) U/L Creatine Kinase (30-135) U/L C-Reactive Protein (<10.0) mg/L Total Protein 8.6 H (6.3-8.2) g/dL Albumin (3.5-5.0) g/dL Urine Appearance Cloudy H (Clear) Urine Blood Moderate H (Negative) Ur Leukocyte Esterase Large H (Negative) Urine WBC 21 H (0-5) /hpf Ur Squamous Epith Cells 8 H (0-4) /hpf Urine Bacteria Occasional H (None) /hpf Urine Yeast (Budding) Occasional H (None) /hpf 10/17/19 10/18/19 10/18/19 Range/Units 22:47 06:39 06:39 WBC 3.2 L (3.8-10.6) k/uL D-Dimer 0.73 H (<0.60) mg/L FEU Potassium (3.5-5.1) mmol/L Calcium (8.4-10.2) mg/dL Ferritin 447.6 H (10.0-291.0) ng/mL AST (14-36) U/L Lactate Dehydrogenase 1081 H (313-618) U/L Creatine Kinase (30-135) U/L C-Reactive Protein 36.0 H (<10.0) mg/L Total Protein (6.3-8.2) g/dL Albumin (3.5-5.0) g/dL Urine Appearance (Clear) Urine Blood (Negative) Ur Leukocyte Esterase (Negative) Urine WBC (0-5) /hpf Ur Squamous Epith Cells (0-4) /hpf Urine Bacteria (None) /hpf Urine Yeast (Budding) (None) /hpf 10/18/19 Range/Units 06:39 WBC (3.8-10.6) k/uL D-Dimer (<0.60) mg/L FEU Potassium (3.5-5.1) mmol/L Calcium 7.9 L (8.4-10.2) mg/dL Ferritin (10.0-291.0) ng/mL AST 50 H (14-36) U/L Lactate Dehydrogenase (313-618) U/L Creatine Kinase 23 L (30-135) U/L C-Reactive Protein (<10.0) mg/L Total Protein (6.3-8.2) g/dL Albumin 2.8 L (3.5-5.0) g/dL Urine Appearance (Clear) Urine Blood (Negative) Ur Leukocyte Esterase (Negative) Urine WBC (0-5) /hpf Ur Squamous Epith Cells (0-4) /hpf Urine Bacteria (None) /hpf Urine Yeast (Budding) (None) /hpf
[2019-10-18 15:43] LABS: ABG Base Excess -0.6 mmol/L; ABG HCO3 24 mmol/L (21-25); ABG Oxygen Saturation 95.6 % (94-97); ABG PCO2 41 mmHg (35-45); ABG PH 7.38 (7.35-7.45); ABG PO2 82 mmHg (83-108); ABG TCO2 26 mmol/L (19-24); Allen Test Performed? Yes
[2019-10-18] MEDS: SULFAMETHOX-TMP 80-16MG/ML 400 MG in DEXTROSE 5% IN WATER 500 ML IVPB SCH ×2 (16:26)
--- NOTE | 2019-10-18 23:11 | P.CONS ---
History of Present Illness - Reason for Consult Consult date: 10/18/19 Pneumonia Requesting physician: Catia Concepcion - Chief Complaint Shortness of breath and cough x weeks - History of Present Illness Patient is a 29-year-old female with past medical history significant for HIV that was diagnosed back in 2017 and apparently the patient has been seen by Dr. Curry however the patient states she was never told to follow up hence she never went to see him in the outpatient setting will refill her HIV medication after the initial prescription ran of, patient presented to [facility] ER yesterday with a chief complaints of increasing shortness of breath and cough that had been progressively getting worse for last 4 weeks however the last week symptom has been more severe patient did have shortness of breath with minimal exertion and she also have a cough which is moderate in intensity was mostly dry in nature and unable to obtain sputum denies having any URI symptoms no pleuritic chest pain or nausea no vomiting no choking on the phone no abdominal pain no diarrhea also has some low-grade fever and chills on arrival to the ER the patient was afebrile however she did spike a fever of 101F this morning patient did have a normal white count he was just mildly elevated and also have elevated LDH and ferritin as well as CRP, Procalcitonin was normal, patient did have CT angiogram of the chest did shows groundglass opacities with initial concern for viral pneumonia she has been admitted to [facility] covid 19 testing is pending and she was started on dexamethasone with subsequent consult for possible PCP pneumonia patient has been started on Bactrim IV and infection it was consulted for further management, patient did have ABGs done and she was noticed to have a pO2 of 95 Review of Systems Positive point has been mentioned in the HPI rest of the systems are negative Past Medical History Past Medical History: Asthma History of Any Multi-Drug Resistant Organisms: None Reported Past Surgical History: No Surgical Hx Reported Past Psychological History: No Psychological Hx Reported Smoking Status: Former smoker Past Alcohol Use History: None Reported Past Drug Use History: None Reported Medications and Allergies Home Medications Medication Instructions Recorded Confirmed Type Azithromycin [Zithromax Z-pack] See Taper PO DIRECTED 10/17/19 10/17/19 History Allergies Allergy/AdvReac Type Severity Reaction Status Date / Time cephalexin monohydrate Allergy Dyspnea Verified 10/17/19 22:47 [From Keflex] Penicillins Allergy Swelling Verified 10/17/19 22:47 phenytoin sodium Allergy Unknown Verified 10/17/19 22:47 [From Dilantin] phenytoin sodium extended Allergy Unknown Verified 10/17/19 22:47 [From Dilantin] Physical Exam Vitals: Vital Signs Temp Pulse Pulse Resp BP BP Pulse Ox 10/18/19 11:00 98.0 F 103 H 16 104/72 100 10/18/19 08:55 101.7 F H 10/18/19 08:03 122 H 20 124/86 96 10/18/19 07:55 100.3 F H 130 H 22 132/90 86 L 10/18/19 03:56 97.8 F 93 16 112/73 99 10/18/19 00:19 98.6 F 109 H 21 122/88 98 10/17/19 23:30 98.1 F 106 H 20 118/97 95 10/17/19 22:31 118 H 100 10/17/19 22:01 18 10/17/19 20:57 98.9 F 127 H 18 128/87 96 Intake and Output 10/18/19 10/18/19 10/18/19 06:59 14:59 22:59 Intake Total 400 2480 Balance 400 2480 Intake: IV 2060 Invasive Line 1 20 Sodium Chloride 0.9% 1, 1040 000 ml @ 130 mls/hr IV . Q7H42M [facility] Rx#:[id number] Sodium Chloride 0.9% 1, 1000 000 ml @ 999 mls/hr IV . Q1H1M [facility] Rx#:[id number] Oral 400 420 Other: Voiding Method Toilet Toilet # Voids 2 Weight 71.5 kg 71.5 kg GENERAL DESCRIPTION: Middle-aged female lying in bed, no distress. No tachypnea or accessory muscle of respiration use. HEENT: Shows Pallor , no scleral icterus. Oral mucous membrane is dry. No pharyngeal erythema or thrush NECK: Trachea central, no thyromegaly. LUNGS: Unlabored breathing. Decreased intensity of breath sounds. No wheeze or crackle. HEART: S1, S2, regular rate and rhythm. No loud murmur ABDOMEN: Soft, no tenderness , guarding or rigidity, no organomegaly EXTREMITIES: No edema of feet. SKIN: No rash, no masses palpable. NEUROLOGICAL: The patient is awake, alert, oriented x3, mood and affect normal. Results CBC & Chem 7: 10/18/19 06:39 10/18/19 06:39 Labs: Abnormal Lab Results - Last 24 Hours (Table) 10/17/19 10/17/19 10/17/19 Range/Units 21:50 21:50 22:47 WBC (3.8-10.6) k/uL D-Dimer 0.70 H (<0.60) mg/L FEU Potassium 3.4 L (3.5-5.1) mmol/L Calcium (8.4-10.2) mg/dL Ferritin (10.0-291.0) ng/mL AST 49 H (14-36) U/L Lactate Dehydrogenase (313-618) U/L Creatine Kinase (30-135) U/L C-Reactive Protein (<10.0) mg/L Total Protein 8.6 H (6.3-8.2) g/dL Albumin (3.5-5.0) g/dL Urine Appearance Cloudy H (Clear) Urine Blood Moderate H (Negative) Ur Leukocyte Esterase Large H (Negative) Urine WBC 21 H (0-5) /hpf Ur Squamous Epith Cells 8 H (0-4) /hpf Urine Bacteria Occasional H (None) /hpf Urine Yeast (Budding) Occasional H (None) /hpf 10/17/19 10/18/19 10/18/19 Range/Units 22:47 06:39 06:39 WBC 3.2 L (3.8-10.6) k/uL D-Dimer 0.73 H (<0.60) mg/L FEU Potassium (3.5-5.1) mmol/L Calcium (8.4-10.2) mg/dL Ferritin 447.6 H (10.0-291.0) ng/mL AST (14-36) U/L Lactate Dehydrogenase 1081 H (313-618) U/L Creatine Kinase (30-135) U/L C-Reactive Protein 36.0 H (<10.0) mg/L Total Protein (6.3-8.2) g/dL Albumin (3.5-5.0) g/dL Urine Appearance (Clear) Urine Blood (Negative) Ur Leukocyte Esterase (Negative) Urine WBC (0-5) /hpf Ur Squamous Epith Cells (0-4) /hpf Urine Bacteria (None) /hpf Urine Yeast (Budding) (None) /hpf 10/18/19 Range/Units 06:39 WBC (3.8-10.6) k/uL D-Dimer (<0.60) mg/L FEU Potassium (3.5-5.1) mmol/L Calcium 7.9 L (8.4-10.2) mg/dL Ferritin (10.0-291.0) ng/mL AST 50 H (14-36) U/L Lactate Dehydrogenase (313-618) U/L Creatine Kinase 23 L (30-135) U/L C-Reactive Protein (<10.0) mg/L Total Protein (6.3-8.2) g/dL Albumin 2.8 L (3.5-5.0) g/dL Urine Appearance (Clear) Urine Blood (Negative) Ur Leukocyte Esterase (Negative) Urine WBC (0-5) /hpf Ur Squamous Epith Cells (0-4) /hpf Urine Bacteria (None) /hpf Urine Yeast (Budding) (None) /hpf Assessment and Plan Assessment: 1- patient presented to hospital with shortness of breath and cough that has been lingering on for the last few weeks, this patient who did have diffuse groundglass opacities in patient with underlying HIV with concern for possible PCP pneumonia, underlying viral pneumonia covid 19 less likely but not entirely excluded 2- patient with HIV diagnosed in 2017 and noncompliance with outpatient follow- up currently off antiretroviral for more than 2 years with possible concern for further worsening of her immune system (1) Pneumonia Current Visit: Yes Status: Acute Code(s): J18.9 - PNEUMONIA, UNSPECIFIED ORGANISM SNOMED Code(s): 535877768 (2) HIV (human immunodeficiency virus infection) Current Visit: Yes Status: Acute Code(s): B20 - HUMAN IMMUNODEFICIENCY VIRUS [HIV] DISEASE SNOMED Code(s): 70328768 Plan: 1- with a CD4 count and HIV viral load 2- we'll request sputum PCP stain 3- degree with the Bactrim IV We will follow on clinical condition and cultures to further adjust medication if needed Thank you for this consultation will follow this patient with you Time with Patient: Greater than 30
[2019-10-19] MEDS: SULFAMETHOX-TMP 80-16MG/ML 400 MG in DEXTROSE 5% IN WATER 500 ML IVPB SCH ×8 (00:14→23:26)
[2019-10-19] MEDS: SODIUM CHLORIDE 0.9% 1,000 ML IV SCH ×3 (05:48→20:32)
--- NOTE | 2019-10-19 08:09 | XR ---
EXAMINATION TYPE: XR chest 1V portable DATE OF EXAM: 10/19/2019 COMPARISON: Prior chest x-ray 10/17/2019 HISTORY: Pneumonia TECHNIQUE: Single frontal view of the chest is obtained. FINDINGS: Bilateral airspace disease is again noted. No evident pneumothorax or pleural effusion. He art size is unchanged. There are overlying cardiac leads. IMPRESSION: Correlate for pneumonia, edema.
[2019-10-19 08:29] LABS: HCT 32.3 % (34.0-46.0); HGB 10.6 gm/dL (11.4-16.0); MCH 27.7 pg (25.0-35.0); MCHC 32.9 g/dL (31.0-37.0); MCV 84.3 fL (80.0-100.0); Mean Platelet Volume 8.6; Platelet Count 145 k/uL (150-450); RBC 3.83 m/uL (3.80-5.40); RDW 12.9 % (11.5-15.5); WBC 3.5 k/uL (3.8-10.6)
[2019-10-19 08:55] LABS: ALT 23 U/L (4-34); AST 38 U/L (14-36); African American GFR (CKD) >90 (>60 ml/min/1.73 sqM); Albumin 2.6 g/dL (3.5-5.0); Alkaline Phosphatase 48 U/L (38-126); Anion Gap 5 mmol/L; Blood Urea Nitrogen 3 mg/dL (7-17); Calcium 7.9 mg/dL (8.4-10.2); Carbon Dioxide 25 mmol/L (22-30); Chloride 110 mmol/L (98-107); Creatine Kinase 22 U/L (30-135); Glucose 83 mg/dL (74-99); Magnesium 1.8 mg/dL (1.6-2.3); Non-African American GFR(CKD) >90 (>60 ml/min/1.73 sqM); Potassium 3.9 mmol/L (3.5-5.1); Sodium 140 mmol/L (137-145); Total Bilirubin 0.3 mg/dL (0.2-1.3); Total Protein 5.9 g/dL (6.3-8.2)
[2019-10-19] MEDS: dexAMETHasone 2 MG TAB PO SCH (09:14)
[2019-10-19] MEDS: ENOXAPARIN 40 MG/0.4 ML SYRINGE SQ SCH (09:14)
[2019-10-19 09:35] LABS: D-Dimer 0.73 mg/L FEU (<0.60); Prothrombin Time 10.6 sec (9.0-12.0)
--- NOTE | 2019-10-19 12:05 | ECHOF ---
Referral Reason: MEASUREMENTS -------- HEIGHT: 165.1 cm WEIGHT: 71.2 kg BP: IVSd: 1.1 cm (0.6 - 1.1) LVIDd: 3.4 cm (3.9 - 5.3) LVPWd: 0.9 cm (0.6 - 1.1) IVSs: 1.4 cm LVIDs: 2.3 cm LVPWs: 1.5 cm LAESV Index (A-L): 24.70 ml/m Ao Diam: 3.1 cm (2.0 - 3.7) AV Cusp: 2.1 cm (1.5 - 2.6) LA Diam: 2.9 cm (2.7 - 3.8) MV EXCURSION: 19.740 mm (> 18.000) MV EF SLOPE: 142 mm/s (70 - 150) EPSS: 0.4 cm MV E Chau: 0.82 m/s MV DecT: 243 ms MV A Chau: 0.46 m/s MV E/A Ratio: 1.79 RAP: 5.00 mmHg RVSP: 11.07 mmHg FINDINGS -------- This was a technically good study. The left ventricular size is normal. Left ventricular wall thickness is normal. Overall left vent ricular systolic function is normal with, an EF between 55 - 60 %. The diastolic filling pattern is normal for the age of the patient 6.31. The right ventricle is normal in size. The left atrial size is normal. Normal LA size by volume 22+/-6 ml/m2. The right atrial size is normal. Interatrial and interventricular septum intact. The aortic valve is trileaflet and appears structurally normal. The mitral valve is normal. There is trace mitral regurgitation. The tricuspid valve appears structurally normal. Trace tricuspid regurgitation present. Right edelmira tricular systolic pressure is normal at < 35 mmHg. There is no pulmonic regurgitation present. The aortic root size is normal. Normal inferior vena cava with normal inspiratory collapse consistent with estimated right atrial pre ssure of 5 mmHg. There is no pericardial effusion. CONCLUSIONS -------- 1. The left ventricular size is normal. 2. Left ventricular wall thickness is normal. 3. Overall left ventricular systolic function is normal with, an EF between 55 - 60 %. 4. The diastolic filling pattern is normal for the age of the patient 6.31 5. There is trace mitral regurgitation. 6. Trace tricuspid regurgitation present. HEALTH AND SAFETY COORDINATOR: Michelle An RDCS
--- NOTE | 2019-10-19 13:43 | P.CNPUL ---
History of Present Illness Consult date: 10/19/19 Requesting physician: Genevieve Bee Reason for consult: dyspnea Chief complaint: Dyspnea, cough History of present illness: 29-year-old white male patient with history of HIV diagnosed in 2017, patient was under the care of Dr. Curry however she was lost to follow-up, and has not been compliant with her HIV medications after her initial prescription ran out. Patient states she became infected with HIV through sexual intercourse. Her other current medical conditions include chronic bronchial asthma, mild intermittent, and former history of smoking. On 10/17/2019 patient presented to the emergency department with symptoms of cough, and progressive dyspnea, and the onset of symptoms was roughly 3 weeks prior, and there was a concern for COVID. Any activity or lying down would cause significant shortness of breath. Denied chest pain, she did admit to chills and intermittent fevers. Denied any sore throat, diarrhea vomiting, nausea or abdominal pain. No neck stiffness. She was previously seen and evaluated at the [facility] on 10/16/2019, was discharged from there, however her symptoms have worsened and she returned for evaluation to the [facility] this time around. Initial chest x-ray showed mild bibasilar infiltrates, subsegmental atelectasis. CT angios chest sh owed no evidence of pulmonary embolism, however did show extensive groundglass interstitial pulmonary edema. Initial blood work showed CBC within normal limits, d-dimer mildly elevated to 0.70, electrolytes and renal profile were unremarkable except for mild hypokalemia with potassium is 3.4, pro calcitonin was 0.08, lactic acid was within normal limits at 1.0, urinalysis showed moderate blood, large amount of leuks, white blood cells, test was negative. Patient has been febrile in the last 24 hours, with T-max of 101.7F. She has been intermittently requiring supplemental oxygen, currently on room air, with a pulse ox of 91%, she is short of breath with conversation, and exertion. Sputum for culture was sent, and for PCP pneumonia. COVID 19 is felt to be less likely, but not entirely excluded, COVID 19 PCR pending, patient was started on Bactrim, and Decadron. Review of Systems All systems: negative Constitutional: Denies chills, Denies fever Eyes: denies blurred vision, denies pain Ears, nose, mouth and throat: Denies headache, Denies sore throat Cardiovascular: Denies chest pain, Denies shortness of breath Respiratory: Reports cough, Reports dyspnea, Reports respiratory infections Gastrointestinal: Denies abdominal pain, Denies diarrhea, Denies nausea, Denies vomiting Genitourinary: Denies dysuria, Denies hematuria Musculoskeletal: Denies myalgias Integumentary: Denies pruritus, Denies rash Neurological: Denies numbness, Denies weakness Psychiatric: Denies anxiety, Denies depression Endocrine: Denies fatigue, Denies weight change Past Medical History Past Medical History: Asthma History of Any Multi-Drug Resistant Organisms: None Reported Past Surgical History: No Surgical Hx Reported Past Psychological History: No Psychological Hx Reported Smoking Status: Former smoker Past Alcohol Use History: None Reported Past Drug Use History: None Reported Medications and Allergies Home Medications Medication Instructions Recorded Confirmed Type Azithromycin [Zithromax Z-pack] See Taper PO DIRECTED 10/17/19 10/17/19 History Allergies Allergy/AdvReac Type Severity Reaction Status Date / Time cephalexin monohydrate Allergy Dyspnea Verified 10/17/19 22:47 [From Keflex] Penicillins Allergy Swelling Verified 10/17/19 22:47 phenytoin sodium Allergy Unknown Verified 10/17/19 22:47 [From Dilantin] phenytoin sodium extended Allergy Unknown Verified 10/17/19 22:47 [From Dilantin] Physical Exam Vitals: Vital Signs Temp Pulse Resp BP Pulse Ox 10/19/19 12:08 88 18 10/19/19 12:05 98.2 F 88 18 119/66 91 L 10/19/19 09:10 89 18 10/19/19 08:37 98.2 F 89 18 103/71 92 L 10/19/19 03:51 98.0 F 80 18 118/85 91 L 10/18/19 23:38 97.8 F 95 17 114/82 96 10/18/19 20:00 98.2 F 91 19 144/91 92 L 10/18/19 16:16 97 F L 77 16 112/86 96 Intake and Output 10/18/19 10/19/19 10/19/19 22:59 06:59 14:59 Intake Total 467 176 7336 Output Total 180 Balance -40 440 2460 Intake: IV 20 20 1060 Invasive Line 1 20 20 20 Sodium Chloride 0.9% 1, 1040 000 ml @ 130 mls/hr IV . [id number] [facility] Rx#:[id number] Intake, IV Titration 500 Amount Sulfamethox-Tmp 80-16Mg/ 500 ml 400 mg In Dextrose 5% in Water 500 ml @ 250 mls /hr IVPB Q8HR [facility] Rx#: [id number] Oral 120 420 900 Output: Urine 180 Other: Voiding Method Toilet Toilet Toilet # Voids 1 Weight 69.5 kg GENERAL EXAM: Alert, very pleasant, 29-year-old white female, on room air, and the pulse ox of 91%, comfortable in no apparent distress. HEAD: Normocephalic/atraumatic. EYES: Normal reaction of pupils, equal size. Conjunctiva pink, sclera white. NOSE: Clear with pink turbinates. THROAT: No erythema or exudates. NECK: No masses, no JVD, no thyroid enlargement, no adenopathy. CHEST: No chest wall deformity. Symmetrical expansion. LUNGS: Equal air entry with no crackles, wheeze, rhonchi or dullness. CVS: Regular rate and rhythm, normal S1 and S2, no gallops, no murmurs, no rubs ABDOMEN: Soft, nontender. No hepatosplenomegaly, normal bowel sounds, no guarding or rigidity. EXTREMITIES: No clubbing, no edema, no cyanosis, 2+ pulses and upper and lower extremities. MUSCULOSKELETAL: Muscle strength and tone normal. SPINE: No scoliosis or deformity SKIN: No rashes CENTRAL NERVOUS SYSTEM: Alert and oriented -3. No focal deficits, tone is normal in all 4 extremities. PSYCHIATRIC: Alert and oriented -3. Appropriate affect. Intact judgment and insight. Results - Laboratory Findings CBC and BMP: 10/19/19 07:32 10/19/19 07:32 ABG ABG pH 7.38 (7.35-7.45) 10/18/19 15:25 ABG pCO2 41 mmHg (35-45) 10/18/19 15:25 ABG pO2 82 mmHg (83-108) L 10/18/19 15:25 ABG O2 Saturation 95.6 % (94-97) 10/18/19 15:25 PT/INR, D-dimer PT 10.6 sec (9.0-12.0) 10/19/19 07:32 INR 1.0 (<1.2) 10/19/19 07:32 D-Dimer 0.73 mg/L FEU (<0.60) H 10/19/19 07:32 Abnormal lab findings: Abnormal Labs 10/17/19 10/17/19 10/17/19 21:50 21:50 22:47 WBC Hgb Hct Plt Count D-Dimer 0.70 H ABG pO2 ABG Total CO2 Potassium 3.4 L Chloride BUN Creatinine Calcium Ferritin AST 49 H Lactate Dehydrogenase Creatine Kinase C-Reactive Protein Total Protein 8.6 H Albumin Urine Appearance Cloudy H Urine Blood Moderate H Ur Leukocyte Esterase Large H Urine WBC 21 H Ur Squamous Epith Cells 8 H Urine Bacteria Occasional H Urine Yeast (Budding) Occasional H 10/17/19 10/18/19 10/18/19 22:47 06:39 06:39 WBC 3.2 L Hgb Hct Plt Count D-Dimer 0.73 H ABG pO2 ABG Total CO2 Potassium Chloride BUN Creatinine Calcium Ferritin 447.6 H AST Lactate Dehydrogenase 1081 H Creatine Kinase C-Reactive Protein 36.0 H Total Protein Albumin Urine Appearance Urine Blood Ur Leukocyte Esterase Urine WBC Ur Squamous Epith Cells Urine Bacteria Urine Yeast (Budding) 10/18/19 10/18/19 10/19/19 06:39 15:25 07:32 WBC 3.5 L Hgb 10.6 L Hct 32.3 L Plt Count 145 L D-Dimer ABG pO2 82 L ABG Total CO2 26 H Potassium Chloride BUN Creatinine Calcium 7.9 L Ferritin AST 50 H Lactate Dehydrogenase Creatine Kinase 23 L C-Reactive Protein Total Protein Albumin 2.8 L Urine Appearance Urine Blood Ur Leukocyte Esterase Urine WBC Ur Squamous Epith Cells Urine Bacteria Urine Yeast (Budding) 10/19/19 10/19/19 07:32 07:32 WBC Hgb Hct Plt Count D-Dimer 0.73 H ABG pO2 ABG Total CO2 Potassium Chloride 110 H BUN 3 L Creatinine 0.49 L Calcium 7.9 L Ferritin AST 38 H Lactate Dehydrogenase Creatine Kinase 22 L C-Reactive Protein Total Protein 5.9 L Albumin 2.6 L Urine Appearance Urine Blood Ur Leukocyte Esterase Urine WBC Ur Squamous Epith Cells Urine Bacteria Urine Yeast (Budding) - Diagnostic Findings Chest x-ray: report reviewed, image reviewed CT scan - chest: report reviewed, image reviewed Assessment and Plan Plan: Assessment: #1. Bilateral airspace disease, with consideration to PCP pneumonia, in a patie nt with history of HIV, not currently receiving any treatment. COVID 19 serology is pending although felt to be less likely #2. Acute hypoxic respiratory failure related to the above #3. History of mild intermittent bronchial asthma, not requiring any treatment #4. Former smoker #5. Medical noncompliance Plan: Continue Bactrim, and Decadron. Awaiting COVID 19 serology testing results, C OVID 19 is felt to be less likely, however not entirely ruled out. ID service is following. Echocardiogram results have been noted. Maintain contact isolation precautions, Send a sputum culture. I performed a history & physical examination of the patient and discussed their management with my nurse practitioner, Elisa Granados. I reviewed the nurse practitioner's note and agree with the documented findings and plan of care. Lung sounds are positive for diminished breath sounds. The findings and the impression was discussed with the patient. I attest to the documentation by the nurse practitioner. Time with Patient: Greater than 30
[2019-10-19] MEDS ORDERED: HYDROcodone/APAP 5-325MG 1 EACH TAB PO PRN (20:45)
--- NOTE | 2019-10-19 20:53 | P.PN ---
Subjective Progress Note Date: 10/19/19 (delayed charting seen at 1600) Principal diagnosis: fatigue Patient is a 29-year-old female with a history of mild intermittent asthma, prior tobacco abuse who presented to the ER with shortness of breath, cough, in fact he that it started approximately 4 weeks ago. It has been so severe that she has been mostly laying down at home and not eating or drinking much. On arrival to the ER she was tachycardic with a pulse of 127 was 96% on room air. Laboratory analysis showed d-dimer 0.7, potassium 3.4, ferritin 447, ALT 49, LDH 1081, CRP 36, total protein 8.6. Chest x-ray showed bibasilar infiltrates. CTA of the chest showed no evidence of PE but extensive ashley undglass interstitial pulmonary edema consistent with viral pneumonia. She was started on IV fluids and potassium. She was tested for COVID. She was admitted for further monitoring. On the morning after admission her fever spiked at 101.7 and she was tachycardic to 122. Her room air pulse ox was 88%. She met sepsis criteria and was therefore transitioned to inpatient. Pulmonary was consulted. She has not started on IV antibiotics as her pro-calcitonin was 0.08 consistent with likely viral origin but not bacterial. She was started on dexamethasone. It came to light that she was diagnosed with HIV in 2017 and was on treatment but did not know to continue. She has not been back to [place]. Due to indolent course and the CXR it was determined she could also have PCP PNA and she was started on Bactrim. Patient seen and examined at bedside. She reports she was just called from [facility] and told her Covid test was negative. She states that her breathing is somewhat better than yesterday but still not good. She is still having exertional dyspnea. She still has some chest pain. No nausea, no vomiting. No other complaints currently. She also denies any recent change in home detergents, cleaning products, soaps, carpeting, new pets or animals in the house. No one else at home has been sick. She has not been working. She has been having grocery delivery or her has been picking up for groceries. They do have 3 children of her own as well as 3 stepchildren which go back and forth between their house and her mother's house. General: Toxic appearing, mild distress, appears at stated age Derm: warm, dry Head: atraumatic, normocephalic, symmetric Eyes: EOMI, no lid lag, anicteric sclera Mouth: no lip lesion, mucous membranes dry Cardiovascular: S1S2 reg, no murmur, positive posterior tibial pulse bilateral, Lungs: Decreased breath sounds bilateral, 3 word conversational dyspnea, no accessory muscle use Abdominal: soft, nontender to palpation, no guarding, no appreciable organomegaly Ext: no gross muscle atrophy, no edema, no contractures Neuro: CN II-XI grossly intact, no focal neuro deficits Psych: Alert, oriented, appropriate affect Pneumonia, acute hypoxic respiratory failure -likely PCP PNA and started on bactrim, sputum culture with PCP stain pending - COVID 19 testing negative at [facility] per patient, await repeat COVID test results - ID recs appreciated - Pulm recs appreciated - Dexamethasone - IV fluids decreased - Supportive care -Follow ferritin, LDH, d-dimer, AST/ALT levels, CRP, and CK - repeat CXR in AM HIV - Concern for progression off treatment for 2 years, PCP is aids defining lesion - ID recs - Await CD 4/CD8 level and viral load Pleuritic chest pain -Likely related to above -Check echocardiogram within normal - [place] Social stressors - no insurance, might have medicaid await recheck Clinical dehydration, resolved Patient is very concerned her significat other is the only one working and they are supporting 6 children. He has taken off Sun- from [facility] she is hoping to be discharged by . She is aware he will need to be tested for HIV. DVT prophylaxis: Lovenox Discussed with: PAtient, nursing Anticipated discharge: 3-[address]: Home A total of 65 minutes was spent on the care of this complex patient more than 50% of the time was spent in counseling and care coordination. Objective - Vital Signs Vital signs: Vital Signs Temp 98.3 F 10/19/19 16:00 Pulse 89 10/19/19 16:00 Resp 18 10/19/19 16:00 BP 121/74 10/19/19 16:00 Pulse Ox 93 L 10/19/19 16:00 Intake & Output 10/19/19 10/19/19 10/20/19 06:59 18:59 06:59 Intake Total 450 2470 Output Total 180 Balance 270 2470 Weight 69.5 kg Intake: IV 30 1070 Invasive Line 1 30 30 Sodium Chloride 0.9% 1, 1040 000 ml @ 75 mls/hr IV . [id number] [facility] Rx#:[id number] Intake, IV Titration 500 Amount Sulfamethox-Tmp 80-16Mg/ 500 ml 400 mg In Dextrose 5% in Water 500 ml @ 250 mls /hr IVPB Q8HR [facility] Rx#: [id number] Oral 420 900 Output: Urine 180 Other: Voiding Method Toilet Toilet # Voids 1 2 - Labs CBC & Chem 7: 10/19/19 07:32 10/19/19 07:32 Labs: Abnormal Lab Results - Last 24 Hours (Table) 10/19/19 10/19/19 10/19/19 Range/Units 07:32 07:32 07:32 WBC 3.5 L (3.8-10.6) k/uL Hgb 10.6 L (11.4-16.0) gm/dL Hct 32.3 L (34.0-46.0) % Plt Count 145 L (150-450) k/uL D-Dimer 0.73 H (<0.60) mg/L FEU Chloride 110 H (98-107) mmol/L BUN 3 L (7-17) mg/dL Creatinine 0.49 L (0.52-1.04) mg/dL Calcium 7.9 L (8.4-10.2) mg/dL AST 38 H (14-36) U/L Creatine Kinase 22 L (30-135) U/L Total Protein 5.9 L (6.3-8.2) g/dL Albumin 2.6 L (3.5-5.0) g/dL Microbiology - Last 24 Hours (Table) 10/17/19 22:47 Blood Culture - Preliminary Blood No Growth after 24 hours
[2019-10-19 21:29] LABS: HIV 2 AB Non-Reactive (Non-Reactive); HIV AB P24 REACTIVE (Non-Reactive); HIV P24 AG Non-Reactive (Non-Reactive)
--- NOTE | 2019-10-19 22:11 | PN ---
PROGRESS NOTE DATE OF SERVICE: 10/19/2019 REASON FOR FOLLOWUP: Pneumonia and a question of PCP. INTERVAL HISTORY: The patient is currently afebrile. The patient is complaining of shortness of breath, especially on exertion. She has been complaining that she has to go to the bathroom because of the IV fluid. Chest pain and cough mostly with exertion. Not bringing up any sputum. No nausea or vomiting. No abdominal pain or diarrhea. PHYSICAL EXAMINATION: Blood pressure 103/71 with a pulse of 89, temperature 98.2. She is 92% on room air. General description is a middle-aged female up in the bed in no distress. RESPIRATORY SYSTEM: Unlabored breathing with decreased intensity of breath sounds. No wheeze. HEART: S1, S2. Regular rate and rhythm. ABDOMEN: Soft. No tenderness. LABS: Hemoglobin is 10.3, white count 3.5. BUN of 3, creatinine 0.49. [place] PCR is negative. DIAGNOSTIC IMPRESSION AND PLAN: Patient with pneumonia, likely PCP in this patient who has a history of HIV and no treatment for the last 3 years. The patient's fever responded to the Bactrim. That will be continued for now while waiting for the CD4 count to determine the HIV regime for her and continue with supportive care. MMODL / IJN: [id number] /
[2019-10-20] MEDS: ACETAMINOPHEN TAB 325 MG TAB PO PRN (05:37)
[2019-10-20 07:16] LABS: HGB 10.8 gm/dL (11.4-16.0); MCH 27.7 pg (25.0-35.0); MCHC 32.6 g/dL (31.0-37.0); MCV 85.1 fL (80.0-100.0); Mean Platelet Volume 8.9; Platelet Count 159 k/uL (150-450); RBC 3.88 m/uL (3.80-5.40); WBC 5.8 k/uL (3.8-10.6)
[2019-10-20 07:28] LABS: ALT 20 U/L (4-34); AST 35 U/L (14-36); African American GFR (CKD) >90 (>60 ml/min/1.73 sqM); Albumin 2.7 g/dL (3.5-5.0); Alkaline Phosphatase 48 U/L (38-126); Anion Gap 8 mmol/L; Blood Urea Nitrogen 6 mg/dL (7-17); Calcium 8.3 mg/dL (8.4-10.2); Carbon Dioxide 21 mmol/L (22-30); Chloride 105 mmol/L (98-107); Creatine Kinase 20 U/L (30-135); Glucose 89 mg/dL (74-99); Magnesium 1.9 mg/dL (1.6-2.3); Non-African American GFR(CKD) >90 (>60 ml/min/1.73 sqM); Potassium 3.6 mmol/L (3.5-5.1); Sodium 134 mmol/L (137-145); Total Bilirubin 0.2 mg/dL (0.2-1.3); Total Protein 6.1 g/dL (6.3-8.2)
--- NOTE | 2019-10-20 07:47 | XR ---
EXAMINATION TYPE: XR chest 1V portable DATE OF EXAM: 10/20/2019 CLINICAL HISTORY: Pneumonia TECHNIQUE: Portable upright view of the chest obtained COMPARISON: 10/19/2019 chest radiograph FINDINGS: Diffuse interstitial lung markings unchanged versus facial . The cardiomediastinal marcella houette is within normal limits for size. Pulmonary vasculature is normal. There is no pleural effusi on or pneumothorax seen. The osseous structures are intact. IMPRESSION: Unchanged diffuse opacities versus 10/19/2019, which may represent diffuse pneumonitis josh anabel pulmonary edema.
[2019-10-20 07:52] LABS: D-Dimer 0.52 mg/L FEU (<0.60); Prothrombin Time 10.2 sec (9.0-12.0)
[2019-10-20] MEDS: SULFAMETHOX-TMP 80-16MG/ML 400 MG in DEXTROSE 5% IN WATER 500 ML IVPB SCH ×6 (09:01→23:27)
[2019-10-20] MEDS: ENOXAPARIN 40 MG/0.4 ML SYRINGE SQ SCH (09:01)
[2019-10-20] MEDS: dexAMETHasone 2 MG TAB PO SCH (09:02)
[2019-10-20 11:20] LABS: Glucose,Whole Blood 104 mg/dL (75-99)
[2019-10-20] MEDS: IPRATROPIUM-ALBUTEROL 3 ML NEB INHALATION SCH ×4 (11:28→23:38)
[2019-10-20] MEDS: methylPREDNISolone SOD SUCCI 125 MG/2 ML VIAL IV SCH ×3 (12:00→23:27)
[2019-10-20] MEDS: guaiFENesin 600 MG TABLET.ER PO SCH ×2 (12:01→21:29)
[2019-10-20] MEDS: SODIUM CHLORIDE 0.9% 1,000 ML IV SCH ×2 (12:01→23:27)
--- NOTE | 2019-10-20 12:01 | P.PN ---
Subjective Progress Note Date: 10/20/19 Principal diagnosis: PCP pneumonia Patient seen and examined at bedside. Patient continues to have exertional dyspnea. Patient states that she feels like the phlegm is not breaking up. Per patient, overall she doesn't feel much better since coming in. Repeat chest x-ray this morning revealed unchanged diffuse opacities which may represent diffuse pneumonitis Patient is a 29-year-old female with a history of mild intermittent asthma, prior tobacco abuse who presented to the ER with shortness of breath, cough, in fact he that it started approximately 4 weeks ago. It has been so severe that she has been mostly laying down at home and not eating or drinking much. On arrival to the ER she was tachycardic with a pulse of 127 was 96% on room air. Laboratory analysis showed d-dimer 0.7, potassium 3.4, ferritin 447, ALT 49, LDH 1081, CRP 36, total protein 8.6. Chest x-ray showed bibasilar infiltrates. CTA of the chest showed no evidence of PE but extensive groundglass interstitial pulmonary edema consistent with viral pneumonia. She was started on IV fluids and potassium. She was tested for COVID. She was admitted for further monitoring. On the morning after admission her fever spiked at 101.7 and she was tachycardic to 122. Her room air pulse ox was 88%. She met sepsis criteria and was therefore transitioned to inpatient. Pulmonary was consulted. She has not started on IV antibiotics as her pro-calcitonin was 0.08 consistent with likely viral origin but not bacterial. She was started on dexamethasone. It came to light that she was diagnosed with HIV in 2017 and was on treatment but did not know to continue. She has not been back to ID. Due to indolent course and the CXR it was determined she could also have PCP PNA and she was started on Bactrim. Objective - Vital Signs Vital signs: Vital Signs Temp 97.6 F 10/20/19 08:00 Pulse 76 10/20/19 11:41 Resp 20 10/20/19 08:00 BP 111/75 10/20/19 08:00 Pulse Ox 92 L 10/20/19 08:00 Intake & Output 10/19/19 10/20/19 10/20/19 18:59 06:59 18:59 Intake Total 2470 540 240 Output Total 300 Balance 2470 540 -60 Weight 77 kg Intake: IV 1070 Invasive Line 1 30 Sodium Chloride 0.9% 1, 1040 000 ml @ 75 mls/hr IV . [id number] [facility] Rx#:[id number] Intake, IV Titration 500 Amount Sulfamethox-Tmp 80-16Mg/ 500 ml 400 mg In Dextrose 5% in Water 500 ml @ 250 mls /hr IVPB Q8HR [facility] Rx#: [id number] Oral 900 540 240 Output: Urine 300 Other: Voiding Method Toilet Toilet # Voids 2 2 - Exam General: [non toxic], [no distress], [appears at stated age] Derm: [warm], [dry] Head: [atraumatic], [normocephalic], [symmetric] Eyes: [EOMI], [no lid lag], [anicteric sclera] Mouth: [no lip lesion], [mucus membranes moist] Cardiovascular: [S1S2 reg], [no murmur], [positive posterior tibial pulse bilateral], Lungs: [Diminished breath sounds bilaterally], [no rhonchi, no rales] , [no accessory muscle use] Abdominal: [soft], [ nontender to palpation], [no guarding], [no appreciable organomegaly] Ext: [no gross muscle atrophy], [no edema], [no contractures] Neuro: [ CN II-XI grossly intact], [no focal neuro deficits] Psych: [Alert], [oriented], [appropriate affect] - Labs CBC & Chem 7: 10/20/19 06:39 10/20/19 06:39 Labs: Abnormal Lab Results - Last 24 Hours (Table) 10/19/19 10/20/19 10/20/19 Range/Units 07:32 06:39 06:39 Hgb 10.8 L (11.4-16.0) gm/dL Hct 33.0 L (34.0-46.0) % Sodium 134 L (137-145) mmol/L Carbon Dioxide 21 L (22-30) mmol/L BUN 6 L (7-17) mg/dL POC Glucose (mg/dL) (75-99) mg/dL Calcium 8.3 L (8.4-10.2) mg/dL Creatine Kinase 20 L (30-135) U/L C-Reactive Protein 11.0 H (<10.0) mg/L Total Protein 6.1 L (6.3-8.2) g/dL Albumin 2.7 L (3.5-5.0) g/dL HIV-1 Antibody REACTIVE H (Non-Reactive) HIV p24 Antibody REACTIVE H (Non-Reactive) 10/20/19 Range/Units 11:19 Hgb (11.4-16.0) gm/dL Hct (34.0-46.0) % Sodium (137-145) mmol/L Carbon Dioxide (22-30) mmol/L BUN (7-17) mg/dL POC Glucose (mg/dL) 104 H (75-99) mg/dL Calcium (8.4-10.2) mg/dL Creatine Kinase (30-135) U/L C-Reactive Protein (<10.0) mg/L Total Protein (6.3-8.2) g/dL Albumin (3.5-5.0) g/dL HIV-1 Antibody (Non-Reactive) HIV p24 Antibody (Non-Reactive) Microbiology - Last 24 Hours (Table) 10/17/19 22:47 Blood Culture - Preliminary Blood No Growth after 48 hours Assessment and Plan Assessment: Pneumonia, acute hypoxic respiratory failure -likely PCP PNA and started on bactrim, sputum culture with PCP stain pending - COVID 19 testing negative at [facility] per patient, COVID negative on 10/17/19 - ID recs appreciated - Pulm recs appreciated - Duo nebs every 4 hours - Mucinex twice a day - IV steroids - IV fluids decreased - Supportive care -Follow ferritin, LDH, d-dimer, AST/ALT levels, CRP, and CK - repeat CXR in AM HIV - Concern for progression off treatment for 2 years, PCP is aids defining lesion - ID recs - Await CD 4/CD8 level and viral load Pleuritic chest pain -Likely related to above -Check echocardiogram within normal - [place] Social stressors - no insurance, might have medicaid await recheck Clinical dehydration, resolved GI DVT prophylaxis A.m. labs Time with Patient: Greater than 30
--- NOTE | 2019-10-20 12:06 | P.PN ---
Subjective Progress Note Date: 10/20/19 Principal diagnosis: Dyspnea, cough, hypoxic respiratory failure, acute 29-year-old white male patient with history of HIV diagnosed in 2017, patient was under the care of Dr. Curry however she was lost to follow-up, and has not been compliant with her HIV medications after her initial prescription ran out. Patient states she became infected with HIV through sexual intercourse. Her other current medical conditions include chronic bronchial asthma, mild intermittent, and former history of smoking. On 10/17/2019 patient presented to the emergency department with symptoms of cough, and progressive dyspnea, and the onset of symptoms was roughly 3 weeks prior, and there was a concern for COVID. Any activity or lying down would cause significant shortness of breath. Denied chest pain, she did admit to chills and intermittent fevers. Denied any sore throat, diarrhea vomiting, nausea or abdominal pain. No neck stiffness. She was previously seen and evaluated at the [facility] on 10/16/2019, was discharged from there, however her symptoms have worsened and she returned for evaluation to the [facility] this time around. Initial chest x-ray showed mild bibasilar infiltrates, subsegmental atelectasis. CT angios chest showed no evidence of pulmonary embolism, however did show extensive groundglass interstitial pulmonary edema. Initial blood work showed CBC within normal limits, d-dimer mildly elevated to 0.70, electrolytes and renal profile were unr emarkable except for mild hypokalemia with potassium is 3.4, pro calcitonin was 0.08, lactic acid was within normal limits at 1.0, urinalysis showed moderate blood, large amount of leuks, white blood cells, test was negative. Patient has been febrile in the last 24 hours, with T-max of 101.7F. She has been intermittently requiring supplemental oxygen, currently on room air, with a pulse ox of 91%, she is short of breath with conversation, and exertion. Sputum for culture was sent, and for PCP pneumonia. COVID 19 is felt to be less likely, but not entirely excluded, COVID 19 PCR pending, patient was started on Bactrim, and Decadron. On 10/20/2019 patient seen in follow-up on [facility] care unit, still very short of breath with any exertion, takes her a while to recover after her trip to the bathroom, lung sounds are diminished bilaterally, the cough is nonproductive and patient is not able to produce a sputum specimen. COVID 19 PCP was negative, patient is afebrile, pulse ox on room air today is 92%. Follow-up chest x-ray today still shows unchanged diffuse opacities compared to yesterday. Patient is on Bactrim, and continues on oral Decadron. Blood culture has shown no growth. The service is following, we discussed the possibility of bronchoscopy with BAL with the patient today, for lower airway sampling and cultures, the patient is agreeable to proceed. Objective - Vital Signs Vital signs: Vital Signs Temp 97.6 F 10/20/19 08:00 Pulse 76 10/20/19 11:41 Resp 20 10/20/19 08:00 BP 111/75 10/20/19 08:00 Pulse Ox 92 L 10/20/19 08:00 Intake & Output 10/19/19 10/20/19 10/20/19 18:59 06:59 18:59 Intake Total 2470 540 240 Output Total 300 Balance 2470 540 -60 Weight 77 kg Intake: IV 1070 Invasive Line 1 30 Sodium Chloride 0.9% 1, 1040 000 ml @ 75 mls/hr IV . [id number] [facility] Rx#:[id number] Intake, IV Titration 500 Amount Sulfamethox-Tmp 80-16Mg/ 500 ml 400 mg In Dextrose 5% in Water 500 ml @ 250 mls /hr IVPB Q8HR [facility] Rx#: [id number] Oral 900 540 240 Output: Urine 300 Other: Voiding Method Toilet Toilet # Voids 2 2 - Exam GENERAL EXAM: Alert, very pleasant, 29-year-old white female, on room air, and the pulse ox of 92%, dyspneic with conversation, and dyspneic with any exertion HEAD: Normocephalic/atraumatic. EYES: Normal reaction of pupils, equal size. Conjunctiva pink, sclera white. NOSE: Clear with pink turbinates. THROAT: No erythema or exudates. NECK: No masses, no JVD, no thyroid enlargement, no adenopathy. CHEST: No chest wall deformity. Symmetrical expansion. LUNGS: Diminished air entry with no crackles, wheeze, rhonchi or dullness. CVS: Regular rate and rhythm, normal S1 and S2, no gallops, no murmurs, no rubs ABDOMEN: Soft, nontender. No hepatosplenomegaly, normal bowel sounds, no guarding or rigidity. EXTREMITIES: No clubbing, no edema, no cyanosis, 2+ pulses and upper and lower extremities. MUSCULOSKELETAL: Muscle strength and tone normal. SPINE: No scoliosis or deformity SKIN: No rashes CENTRAL NERVOUS SYSTEM: Alert and oriented -3. No focal deficits, tone is normal in all 4 extremities. PSYCHIATRIC: Alert and oriented -3. Appropriate affect. Intact judgment and insight. - Labs CBC & Chem 7: 10/20/19 06:39 10/20/19 06:39 Labs: Abnormal Lab Results - Last 24 Hours (Table) 10/19/19 10/20/19 10/20/19 Range/Units 07:32 06:39 06:39 Hgb 10.8 L (11.4-16.0) gm/dL Hct 33.0 L (34.0-46.0) % Sodium 134 L (137-145) mmol/L Carbon Dioxide 21 L (22-30) mmol/L BUN 6 L (7-17) mg/dL POC Glucose (mg/dL) (75-99) mg/dL Calcium 8.3 L (8.4-10.2) mg/dL Creatine Kinase 20 L (30-135) U/L C-Reactive Protein 11.0 H (<10.0) mg/L Total Protein 6.1 L (6.3-8.2) g/dL Albumin 2.7 L (3.5-5.0) g/dL HIV-1 Antibody REACTIVE H (Non-Reactive) HIV p24 Antibody REACTIVE H (Non-Reactive) 10/20/19 Range/Units 11:19 Hgb (11.4-16.0) gm/dL Hct (34.0-46.0) % Sodium (137-145) mmol/L Carbon Dioxide (22-30) mmol/L BUN (7-17) mg/dL POC Glucose (mg/dL) 104 H (75-99) mg/dL Calcium (8.4-10.2) mg/dL Creatine Kinase (30-135) U/L C-Reactive Protein (<10.0) mg/L Total Protein (6.3-8.2) g/dL Albumin (3.5-5.0) g/dL HIV-1 Antibody (Non-Reactive) HIV p24 Antibody (Non-Reactive) Microbiology - Last 24 Hours (Table) 10/17/19 22:47 Blood Culture - Preliminary Blood No Growth after 48 hours Assessment and Plan Plan: Assessment: #1. Bilateral airspace disease, with consideration to PCP pneumonia, in a patient with history of HIV, not currently receiving any treatment. COVID 19 was ruled out based on the Covid 19 PCR coming back negative #2. Acute hypoxic respiratory failure related to the above #3. History of mild intermittent bronchial asthma, not requiring any treatment #4. Former smoker #5. Medical noncompliance Plan: Continue current antibiotics, we'll switch Decadron to IV Solu-Medrol, today's chest x-ray reviewed, showing unchanged diffuse opacities likely related to PCP pneumonia unless proven otherwise, discussed proceeding with bronchoscopy with BAL tomorrow on 10/21/2019, and the patient is agreeable to proceed, nothing by mouth after midnight. I performed a history & physical examination of the patient and discussed their management with my nurse practitioner, Elisa Granados. I reviewed the nurse practitioner's note and agree with the documented findings and plan of care. Lung sounds are positive for diminished breath sounds. The findings and the impression was discussed with the patient. I attest to the documentation by the nurse practitioner. Time with Patient: Less than 30
[2019-10-20 13:02] LABS: T Helper Cell (CD4) 35 cell/ul (443-1471); T Helper Cell (CD4) % 4 % (35-66); T Suppressor Cell (CD8) 617 cell/ul (190-832); T Suppressor Cell (CD8) % 75 % (9-37); T4/T8 Ratio (CD4:CD8) <0.1 (1.0-3.7)
[2019-10-20] MEDS: FAMOTIDINE 20 MG TAB PO SCH (13:03)
[2019-10-20 16:38] LABS: HIV-1 RNA DETECTED (Not detected)
[2019-10-20 17:16] LABS: Glucose,Whole Blood 167 mg/dL (75-99)
--- NOTE | 2019-10-20 17:41 | PN ---
PROGRESS NOTE DATE OF SERVICE: 10/20/2019 REASON FOR FOLLOWUP: Pneumonia and HIV. INTERVAL HISTORY: Patient is currently afebrile. The patient is breathing slightly comfortably. The patient denies having any chest pain. She did have a cough which is more dry in nature. No nausea, no vomiting. No abdominal pain or diarrhea. PHYSICAL EXAMINATION: Blood pressure 114/70 with a pulse of 85, temperature is 97.9, she is 95% on room air. General description is a young female, lying in bed, in no distress. RESPIRATORY SYSTEM: Unlabored breathing, decreased intensity of breath sounds. No wheeze. HEART: S1, S2. Regular rate and rhythm. ABDOMEN: Soft, no tenderness. LABS: Hemoglobin is 10.1, white count of 5.9, BUN of 6, creatinine 0.56. CD4 count of 35. IMPRESSION/PLAN: Patient with acute acquired immunodeficiency syndrome with pneumonia, likely PCP. Patient fever responding to the Bactrim IV, which will be continued along with steroids. Recommend initial treatment of her pneumonia before starting on the anti- retroviral plus we will need to wait for the genotype. All her questions and concerns were answered. MMODL / IJN: [id number] /
[2019-10-20 21:07] LABS: Glucose,Whole Blood 168 mg/dL (75-99)
[2019-10-20 22:39] LABS: LD Isoenzymes 1 11 % (19-38); LD Isoenzymes 2 35 % (30-43); LD Isoenzymes 3 31 % (16-26); LD Isoenzymes 4 11 % (3-12); LD Isoenzymes 5 12 % (3-14); Lactacte Dehydrogenase(LD) ISO 308 U/L (100-200)
[2019-10-21] MEDS: IPRATROPIUM-ALBUTEROL 3 ML NEB INHALATION SCH ×7 (03:16→23:40)
[2019-10-21 03:33] LABS: Glucose,Whole Blood 112 mg/dL (75-99)
[2019-10-21] MEDS: methylPREDNISolone SOD SUCCI 125 MG/2 ML VIAL IV SCH ×4 (06:06→22:57)
[2019-10-21 06:23] LABS: Glucose,Whole Blood 127 mg/dL (75-99)
[2019-10-21 06:47] LABS: Basophils % (A) 0 %; Eosinophils % (A) 0 %; HCT 34.3 % (34.0-46.0); HGB 11.3 gm/dL (11.4-16.0); Lymphocytes # (A) 0.6 k/uL (1.0-4.8); Lymphocytes % (A) 9 %; MCH 27.6 pg (25.0-35.0); MCHC 32.9 g/dL (31.0-37.0); Mean Platelet Volume 8.3; Monocytes # (A) 0.1 k/uL (0-1.0); Monocytes % (A) 2 %; Neutrophils # (A) 5.2 k/uL (1.3-7.7); Neutrophils % (A) 88 %; Platelet Count 178 k/uL (150-450); RBC 4.09 m/uL (3.80-5.40); RDW 13.2 % (11.5-15.5); WBC 5.9 k/uL (3.8-10.6)
[2019-10-21 07:04] LABS: ALT 21 U/L (4-34); AST 31 U/L (14-36); African American GFR (CKD) >90 (>60 ml/min/1.73 sqM); Albumin 2.8 g/dL (3.5-5.0); Alkaline Phosphatase 49 U/L (38-126); Anion Gap 7 mmol/L; Blood Urea Nitrogen 7 mg/dL (7-17); Calcium 8.4 mg/dL (8.4-10.2); Carbon Dioxide 24 mmol/L (22-30); Chloride 105 mmol/L (98-107); Glucose 113 mg/dL (74-99); LDH 948 U/L (313-618); Non-African American GFR(CKD) >90 (>60 ml/min/1.73 sqM); Potassium 4.2 mmol/L (3.5-5.1); Sodium 136 mmol/L (137-145); Total Bilirubin 0.3 mg/dL (0.2-1.3); Total Protein 6.3 g/dL (6.3-8.2)
--- NOTE | 2019-10-21 08:32 | P.PN ---
Subjective Progress Note Date: 10/21/19 Principal diagnosis: PCP pneumonia. Patient seen and examined at bedside. Patient continues to have exertional dyspnea. Patient states that she does feel better than yesterday especially when she receives IV steroids. Patient is scheduled for a bronchoscopy with BAL today. Patient is requesting her breathing treatments now since she missed her last treatment. Patient is a 29-year-old female with a history of mild intermittent asthma, prior tobacco abuse who presented to the ER with shortness of breath, cough, in fact he that it started approximately 4 weeks ago. It has been so severe that she has been mostly laying down at home and not eating or drinking much. On arrival to the ER she was tachycardic with a pulse of 127 was 96% on room air. Laboratory analysis showed d-dimer 0.7, potassium 3.4, ferritin 447, ALT 49, LDH 1081, CRP 36, total protein 8.6. Chest x-ray showed bibasilar infiltrates. CTA of the chest showed no evidence of PE but extensive groundglass interstitial pulmonary edema consistent with viral pneumonia. She was started on IV fluids and potassium. She was tested for COVID. She was admitted for further monitoring. On the morning after admission her fever spiked at 101.7 and she was tachycardic to 122. Her room air pulse ox was 88%. She met sepsis criteria and was therefore transitioned to inpatient. Pulmonary was consulted. She has not started on IV antibiotics as her pro-calcitonin was 0.08 consistent with likely viral origin but not bacterial. She was started on dexamethasone. It came to light that she was diagnosed with HIV in 2017 and was on treatment but did not know to continue. She has not been back to ID. Due to indolent course and the CXR it was determined she could also have PCP PNA and she was started on Bactrim. Objective - Vital Signs Vital signs: Vital Signs Temp 97.9 F 10/21/19 03:49 Pulse 72 10/21/19 08:13 Resp 16 10/21/19 03:49 BP 100/66 10/21/19 03:49 Pulse Ox 96 10/21/19 03:49 Intake & Output 10/20/19 10/21/19 10/21/19 18:59 06:59 18:59 Intake Total 720 2980 Output Total 300 Balance 420 2980 Weight 71.1 kg Intake: IV 900 Sodium Chloride 0.9% 1, 900 000 ml @ 75 mls/hr IV . [id number] [facility] Rx#:[id number] Intake, IV Titration 1000 Amount Sulfamethox-Tmp 80-16Mg/ 1000 ml 400 mg In Dextrose 5% in Water 500 ml @ 350 mls /hr IVPB Q8HR [facility] Rx#: [id number] Oral 720 1080 Output: Urine 300 Other: Voiding Method Toilet # Voids 3 - Exam General: [non toxic], [no distress], [appears at stated age] Derm: [warm], [dry] Head: [atraumatic], [normocephalic], [symmetric] Eyes: [EOMI], [no lid lag], [anicteric sclera] Mouth: [no lip lesion], [mucus membranes moist] Cardiovascular: [S1S2 reg], [no murmur], [positive posterior tibial pulse bilateral], Lungs: [Diminished breath sounds bilaterally], [no rhonchi, no rales] , [no accessory muscle use] Abdominal: [soft], [ nontender to palpation], [no guarding], [no appreciable organomegaly] Ext: [no gross muscle atrophy], [no edema], [no contractures] Neuro: [ CN II-XI grossly intact], [no focal neuro deficits] Psych: [Alert], [oriented], [appropriate affect] - Labs CBC & Chem 7: 10/21/19 06:24 10/21/19 06:23 Labs: Abnormal Lab Results - Last 24 Hours (Table) 10/18/19 10/19/19 10/20/19 Range/Units 06:39 07:32 11:19 Hgb (11.4-16.0) gm/dL Lymphocytes # (1.0-4.8) k/uL Sodium (137-145) mmol/L Glucose (74-99) mg/dL POC Glucose (mg/dL) 104 H (75-99) mg/dL Lactate Dehydrogenase (313-618) U/L LD Isoenzymes 308 H (100-200) U/L LD 1 11 L (19-38) % LD 3 31 H (16-26) % Albumin (3.5-5.0) g/dL % CD4 [place] 4 L (35-66) % Absolute CD4 [place] 35 L (443-1471) cell/ul CD4/CD8 Ratio <0.1 L (1.0-3.7) % CD8 Suppressor 75 H (9-37) % 10/20/19 10/20/19 10/21/19 Range/Units 17:14 21:06 03:32 Hgb (11.4-16.0) gm/dL Lymphocytes # (1.0-4.8) k/uL Sodium (137-145) mmol/L Glucose (74-99) mg/dL POC Glucose (mg/dL) 167 H 168 H 112 H (75-99) mg/dL Lactate Dehydrogenase (313-618) U/L LD Isoenzymes (100-200) U/L LD 1 (19-38) % LD 3 (16-26) % Albumin (3.5-5.0) g/dL % CD4 [place] (35-66) % Absolute CD4 [place] (443-1471) cell/ul CD4/CD8 Ratio (1.0-3.7) % CD8 Suppressor (9-37) % 10/21/19 10/21/19 10/21/19 Range/Units 06:22 06:23 06:24 Hgb 11.3 L (11.4-16.0) gm/dL Lymphocytes # 0.6 L (1.0-4.8) k/uL Sodium 136 L (137-145) mmol/L Glucose 113 H (74-99) mg/dL POC Glucose (mg/dL) 127 H (75-99) mg/dL Lactate Dehydrogenase 948 H (313-618) U/L LD Isoenzymes (100-200) U/L LD 1 (19-38) % LD 3 (16-26) % Albumin 2.8 L (3.5-5.0) g/dL % CD4 [place] (35-66) % Absolute CD4 [place] (443-1471) cell/ul CD4/CD8 Ratio (1.0-3.7) % CD8 Suppressor (9-37) % Microbiology - Last 24 Hours (Table) 10/17/19 22:47 Blood Culture - Preliminary Blood No Growth after 72 hours Assessment and Plan Assessment: Pneumonia, acute hypoxic respiratory failure -likely PCP PNA and started on bactrim, sputum culture with PCP stain pending - COVID 19 testing negative at [facility] per patient, COVID negative on 10/17/19 - ID recs appreciated - Pulm recs appreciated: patient is scheduled for a bronchoscopy with BAL today - Duo nebs every 4 hours - Mucinex twice a day - IV steroids - IV fluids decreased - Supportive care HIV - Concern for progression off treatment for 2 years, PCP is aids defining lesion - ID recs appreciated - CD 4/CD8 level <0.1 - %CD8 suppressor 75% - %CD4 helper 4% - Absolute CD4 helper 35cell/ul Pleuritic chest pain -Likely related to above -Check echocardiogram within normal - [place] Social stressors - no insurance, might have medicaid await recheck Clinical dehydration, resolved GI DVT prophylaxis A.m. labs
[2019-10-21] MEDS: SULFAMETHOX-TMP 80-16MG/ML 400 MG in DEXTROSE 5% IN WATER 500 ML IVPB SCH ×6 (08:51→22:51)
[2019-10-21 09:31] LABS: C Reactive Protein 7.5 mg/L (<10.0)
[2019-10-21] MEDS: FAMOTIDINE 20 MG TAB PO SCH (09:31)
[2019-10-21] MEDS: guaiFENesin 600 MG TABLET.ER PO SCH ×2 (09:31→17:01)
[2019-10-21 12:06] LABS: Glucose,Whole Blood 106 mg/dL (75-99)
--- NOTE | 2019-10-21 12:21 | P.PN ---
Subjective Progress Note Date: 10/21/19 Principal diagnosis: Dyspnea, cough, hypoxic respiratory failure, acute 29-year-old white male patient with history of HIV diagnosed in 2017, patient was under the care of Dr. Curry however she was lost to follow-up, and has not been compliant with her HIV medications after her initial prescription ran out. Patient states she became infected with HIV through sexual intercourse. Her other current medical conditions include chronic bronchial asthma, mild intermittent, and former history of smoking. On 10/17/2019 patient presented to the emergency department with symptoms of cough, and progressive dyspnea, and the onset of symptoms was roughly 3 weeks prior, and there was a concern for COVID. Any activity or lying down would cause significant shortness of breath. Denied chest pain, she did admit to chills and intermittent fevers. Denied any sore throat, diarrhea vomiting, nausea or abdominal pain. No neck stiffness. She was previously seen and evaluated at the [facility] on 10/16/2019, was discharged from there, however her symptoms have worsened and she returned for evaluation to the [facility] this time around. Initial chest x-ray showed mild bibasilar infiltrates, subsegmental atelectasis. CT angios chest showed no evidence of pulmonary embolism, however did show extensive groundglass interstitial pulmonary edema. Initial blood work showed CBC within normal limits, d-dimer mildly elevated to 0.70, electrolytes and renal profile were unr emarkable except for mild hypokalemia with potassium is 3.4, pro calcitonin was 0.08, lactic acid was within normal limits at 1.0, urinalysis showed moderate blood, large amount of leuks, white blood cells, test was negative. Patient has been febrile in the last 24 hours, with T-max of 101.7F. She has been intermittently requiring supplemental oxygen, currently on room air, with a pulse ox of 91%, she is short of breath with conversation, and exertion. Sputum for culture was sent, and for PCP pneumonia. COVID 19 is felt to be less likely, but not entirely excluded, COVID 19 PCR pending, patient was started on Bactrim, and Decadron. On 10/20/2019 patient seen in follow-up on [facility] care unit, still very short of breath with any exertion, takes her a while to recover after her trip to the bathroom, lung sounds are diminished bilaterally, the cough is nonproductive and patient is not able to produce a sputum specimen. COVID 19 PCP was negative, patient is afebrile, pulse ox on room air today is 92%. Follow-up chest x-ray today still shows unchanged diffuse opacities compared to yesterday. Patient is on Bactrim, and continues on oral Decadron. Blood culture has shown no growth. The service is following, we discussed the possibility of bronchoscopy with BAL with the patient today, for lower airway sampling and cultures, the patient is agreeable to proceed. On 10/21/2019 patient seen in follow-up on [facility] care unit. She still very short of breath with any exertion, not bringing up much phlegm, room air pulse ox is 95%, she feels very tired today, she states she didn't sleep well last night, she has been afebrile, hemodynamically stable, continues on Bactrim for possibility of PCP pneumonia, yesterday with switched her oral steroids to IV Solu-Medrol, continues on nebulized bronchodilators. Patient has been nothing by mouth after midnight for bronchoscopy with BAL today. Objective - Vital Signs Vital signs: Vital Signs Temp 97.6 F 10/21/19 12:05 Pulse 94 10/21/19 12:05 Resp 16 10/21/19 12:05 BP 104/60 10/21/19 12:05 Pulse Ox 95 10/21/19 12:05 Intake & Output 10/20/19 10/21/19 10/21/19 18:59 06:59 18:59 Intake Total 720 2980 150 Output Total 300 Balance 420 2980 150 Weight 71.1 kg Intake: IV 900 150 Sodium Chloride 0.9% 1, 900 150 000 ml @ 75 mls/hr IV . [id number] [facility] Rx#:[id number] Intake, IV Titration 1000 Amount Sulfamethox-Tmp 80-16Mg/ 1000 ml 400 mg In Dextrose 5% in Water 500 ml @ 350 mls /hr IVPB Q8HR [facility] Rx#: [id number] Oral 720 1080 Output: Urine 300 Other: Voiding Method Toilet # Voids 3 - Exam GENERAL EXAM: Alert, very pleasant, 29-year-old white female, on room air, and the pulse ox of 95%, dyspneic with conversation, and dyspneic with any exertion HEAD: Normocephalic/atraumatic. EYES: Normal reaction of pupils, equal size. Conjunctiva pink, sclera white. NOSE: Clear with pink turbinates. THROAT: No erythema or exudates. NECK: No masses, no JVD, no thyroid enlargement, no adenopathy. CHEST: No chest wall deformity. Symmetrical expansion. LUNGS: Diminished air entry with no crackles, wheeze, rhonchi or dullness. CVS: Regular rate and rhythm, normal S1 and S2, no gallops, no murmurs, no rubs ABDOMEN: Soft, nontender. No hepatosplenomegaly, normal bowel sounds, no guarding or rigidity. EXTREMITIES: No clubbing, no edema, no cyanosis, 2+ pulses and upper and lower extremities. MUSCULOSKELETAL: Muscle strength and tone normal. SPINE: No scoliosis or deformity SKIN: No rashes CENTRAL NERVOUS SYSTEM: Alert and oriented -3. No focal deficits, tone is normal in all 4 extremities. PSYCHIATRIC: Alert and oriented -3. Appropriate affect. Intact judgment and insight. - Labs CBC & Chem 7: 10/21/19 06:24 10/21/19 06:23 Labs: Abnormal Lab Results - Last 24 Hours (Table) 10/18/19 10/19/19 10/20/19 Range/Units 06:39 07:32 17:14 Hgb (11.4-16.0) gm/dL Lymphocytes # (1.0-4.8) k/uL Sodium (137-145) mmol/L Glucose (74-99) mg/dL POC Glucose (mg/dL) 167 H (75-99) mg/dL Lactate Dehydrogenase (313-618) U/L LD Isoenzymes 308 H (100-200) U/L LD 1 11 L (19-38) % LD 3 31 H (16-26) % Albumin (3.5-5.0) g/dL % CD4 [place] 4 L (35-66) % Absolute CD4 [place] 35 L (443-1471) cell/ul CD4/CD8 Ratio <0.1 L (1.0-3.7) % CD8 Suppressor 75 H (9-37) % 10/20/19 10/21/19 10/21/19 Range/Units 21:06 03:32 06:22 Hgb (11.4-16.0) gm/dL Lymphocytes # (1.0-4.8) k/uL Sodium (137-145) mmol/L Glucose (74-99) mg/dL POC Glucose (mg/dL) 168 H 112 H 127 H (75-99) mg/dL Lactate Dehydrogenase (313-618) U/L LD Isoenzymes (100-200) U/L LD 1 (19-38) % LD 3 (16-26) % Albumin (3.5-5.0) g/dL % CD4 [place] (35-66) % Absolute CD4 [place] (443-1471) cell/ul CD4/CD8 Ratio (1.0-3.7) % CD8 Suppressor (9-37) % 10/21/19 10/21/19 10/21/19 Range/Units 06:23 06:24 12:05 Hgb 11.3 L (11.4-16.0) gm/dL Lymphocytes # 0.6 L (1.0-4.8) k/uL Sodium 136 L (137-145) mmol/L Glucose 113 H (74-99) mg/dL POC Glucose (mg/dL) 106 H (75-99) mg/dL Lactate Dehydrogenase 948 H (313-618) U/L LD Isoenzymes (100-200) U/L LD 1 (19-38) % LD 3 (16-26) % Albumin 2.8 L (3.5-5.0) g/dL % CD4 [place] (35-66) % Absolute CD4 [place] (443-1471) cell/ul CD4/CD8 Ratio (1.0-3.7) % CD8 Suppressor (9-37) % Microbiology - Last 24 Hours (Table) 10/17/19 22:47 Blood Culture - Preliminary Blood No Growth after 72 hours Assessment and Plan Plan: Assessment: #1. Bilateral airspace disease, with consideration to PCP pneumonia, in a patient with history of HIV, not currently receiving any treatment. COVID 19 was ruled out based on the Covid 19 PCR coming back negative #2. Acute hypoxic respiratory failure related to the above #3. History of mild intermittent bronchial asthma, not requiring any treatment #4. Former smoker #5. Medical noncompliance Plan: Continue current antibiotics, breathing treatments, and steroids, we'll proceed with bronchoscopy with BAL today. I performed a history & physical examination of the patient and discussed their management with my nurse practitioner, Elisa Granados. I reviewed the nurse practitioner's note and agree with the documented findings and plan of care. Lung sounds are positive for diminished breath sounds. The findings and the impression was discussed with the patient. I attest to the documentation by the nurse practitioner. Time with Patient: Less than 30
[2019-10-21] MEDS ORDERED: LIDOCAINE 1% INJ 10MG/ML (20 ML MDV) ONE (13:03)
[2019-10-21] MEDS ORDERED: KETAMINE 10 MG/ML 20 ML VIAL ONE (13:03)
[2019-10-21] MEDS ORDERED: PROPOFOL 10 MG/ML 20 ML VIAL IV ONE (13:03)
[2019-10-21] MEDS ORDERED: GLYCOPYRROLATE 0.2 MG/ML 2 ML VIAL ONE (13:03)
[2019-10-21] MEDS ORDERED: MIDAZOLAM 2 MG/2 ML VIAL ONE (13:03)
[2019-10-21] MEDS ORDERED: LIDOCAINE 2% INJ 20 MG/ML INTRATRACH ONE (13:18)
[2019-10-21] MEDS ORDERED: IV FLUID CONTINUATION 1,000 ML IV ONE (13:25)
[2019-10-21] MEDS: ENOXAPARIN 40 MG/0.4 ML SYRINGE SQ SCH (14:01)
[2019-10-21] MEDS: SODIUM CHLORIDE 0.9% 1,000 ML IV SCH ×2 (15:51→22:57)
[2019-10-21] MEDS: NYSTATIN 100,000 UNIT/ML SUSP 500,000 UNIT/5 ML CUP PO SCH ×3 (15:52→20:46)
--- NOTE | 2019-10-21 16:11 | OP ---
OPERATIVE REPORT OPERATIVE REPORT: Bronchoscopy and bronchoalveolar lavage of the right middle lobe. PREOPERATIVE DIAGNOSIS: Diffuse interstitial pneumonia. 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 PROCEDURE DESCRIPTION: The patient was prepared according to the bronchoscopy protocol. Oxygen was applied via nasal cannula. The patient was placed in supine position. We monitored her oxygen saturation continuously. Blood pressure was intermittently monitored, and cardiac rhythm was continuously monitored. Blood pressure was intermittently monitored. After adequate IV conscious sedation, the patient had a bite block applied, and through the bite block I was able to get to the area of the vocal cords. There was evidence of pharyngeal thrush noted in the pharyngeal area. Pictures were taken. There was a cheesy appearance throughout the whole area around the vocal cords. Lidocaine was applied over the vocal cords, and the bronchoscope was advanced further down to the trachea. Thorough examination was done of the trachea, rosana, right upper lobe, right upper lobe, right lower lobe, left upper lobe lingula and left lower lobe. There was no evidence of any endobronchial tumors. There were very minimal clear secretions throughout, but no purulent secretions noted. Then the bronchoscope was wedged in the right middle lobe, and lavage of the right middle lobe lateral segment and medial segment was performed. Fluid was sent for different diagnostic studies, including screening for PCP stain and PCP PCR. Other diagnostic studies were ordered. Procedure was well tolerated and no evidence of any immediate complications. MMODL / IJN: [id number] /
[2019-10-21 16:41] LABS: Glucose,Whole Blood 141 mg/dL (75-99)
--- NOTE | 2019-10-21 16:41 | PN ---
PROGRESS NOTE DATE OF SERVICE: 10/21/2019 REASON FOR FOLLOWUP: 1. HIV. 2. Pneumonia; possible PCP. INTERVAL HISTORY: The patient is currently afebrile. The patient is breathing comfortably. The patient is scheduled for a bronchoscopy this afternoon. Denies having any chest pain. Cough has decreased in intensity. No nausea, no vomiting. No abdominal pain or diarrhea. PHYSICAL EXAMINATION: Her blood pressure is 99/63 with a pulse of 96, temperature 97.5. She is 99% on 2 L nasal cannula. General description is a middle-aged female lying in bed in no distress. RESPIRATORY SYSTEM: Unlabored breathing. Clear to auscultation anteriorly. HEART: S1, S2. Regular rate and rhythm. ABDOMEN: Soft. No tenderness. LABS: Hemoglobin 11.3, white count 5.9, BUN of 7, creatinine 0.55. DIAGNOSTIC IMPRESSION AND PLAN: 1. Patient with pneumonia in this patient who has underlying acquired immunodeficiency syndrome. This patient's CD4 count is only 35. The patient is currently covered with Bactrim for suspicion of underlying PCP pneumonia. Waiting for bronchoscopy. Fluid should be sent for PCP stains. 2. Human immunodeficiency virus. Will wait for the genotype to be finalized and pneumonia to heal before starting her on any retroviral. Continue with supportive care. MMODL / IJN: [id number] /
[2019-10-21] MEDS: ACETAMINOPHEN TAB 325 MG TAB PO PRN (17:01)
[2019-10-21 17:25] LABS: Ferritin 238.3 ng/mL (10.0-291.0)
[2019-10-21 19:42] LABS: Glucose,Whole Blood 165 mg/dL (75-99)
[2019-10-21 20:25] LABS: Appearance,BF Clear; Color,BF Colorless; Nucleated Cells, Body Fluid 60 /uL
[2019-10-21 20:26] LABS: Mononuclear WBC,Body Fluid 17 %; Polynuclear WBC,Body Fluid 83 %; RBC, Body Fluid 4 /uL; Total Cells Counted,Body Fluid 100
[2019-10-21] MEDS ORDERED: FLUCONAZOLE 100 MG TAB PO SCH (21:00)
[2019-10-21 23:07] VITALS: RESP 18
[2019-10-22] MEDS: IPRATROPIUM-ALBUTEROL 3 ML NEB INHALATION SCH ×4 (04:09→15:58)
[2019-10-22] MEDS: methylPREDNISolone SOD SUCCI 125 MG/2 ML VIAL IV SCH ×2 (04:58→12:31)
[2019-10-22 06:20] LABS: Basophils % (A) 0 %; Eosinophils % (A) 0 %; HCT 33.9 % (34.0-46.0); Lymphocytes # (A) 0.6 k/uL (1.0-4.8); Lymphocytes % (A) 5 %; MCH 27.4 pg (25.0-35.0); MCHC 32.3 g/dL (31.0-37.0); MCV 85.1 fL (80.0-100.0); Mean Platelet Volume 8.1; Monocytes # (A) 0.3 k/uL (0-1.0); Monocytes % (A) 2 %; Neutrophils # (A) 10.9 k/uL (1.3-7.7); Neutrophils % (A) 92 %; Platelet Count 216 k/uL (150-450); RBC 3.99 m/uL (3.80-5.40); RDW 13.3 % (11.5-15.5); WBC 11.8 k/uL (3.8-10.6)
[2019-10-22 07:30] LABS: HIV1D REACTIVE
[2019-10-22 07:31] LABS: HIV2D NONREAC
[2019-10-22] MEDS: FAMOTIDINE 20 MG TAB PO SCH (08:27)
[2019-10-22] MEDS: NYSTATIN 100,000 UNIT/ML SUSP 500,000 UNIT/5 ML CUP PO SCH ×3 (08:28→19:12)
[2019-10-22] MEDS: ENOXAPARIN 40 MG/0.4 ML SYRINGE SQ SCH (08:28)
[2019-10-22] MEDS: guaiFENesin 600 MG TABLET.ER PO SCH (08:28)
[2019-10-22] MEDS: ACETAMINOPHEN TAB 325 MG TAB PO PRN (08:33)
[2019-10-22 08:47] VITALS: TEMP 98.3
--- NOTE | 2019-10-22 09:21 | XR ---
EXAMINATION TYPE: XR chest 1V portable DATE OF EXAM: 10/22/2019 COMPARISON: Prior chest x-ray 10/20/2019 HISTORY: Pneumonia, cough TECHNIQUE: Single frontal view of the chest is obtained. FINDINGS: There is some improvement in the bilateral airspace disease as compared to prior exam. No evident pneumothorax or pleural effusion. Cardiac mediastinal silhouette is stable. IMPRESSION: Improved aeration.
[2019-10-22] MEDS: SULFAMETHOX-TMP 80-16MG/ML 400 MG in DEXTROSE 5% IN WATER 500 ML IVPB SCH ×4 (09:35→16:30)
[2019-10-22 12:04] LABS: Glucose,Whole Blood 94 mg/dL (75-99)
--- NOTE | 2019-10-22 12:39 | P.PN ---
Subjective Progress Note Date: 10/22/19 Principal diagnosis: Acute hypoxic respiratory failure secondary to suspected PCP pneumonia 29-year-old white male patient with history of HIV diagnosed in 2017, patient was under the care of Dr. Curry however she was lost to follow-up, and has not been compliant with her HIV medications after her initial prescription ran out. Patient states she became infected with HIV through sexual intercourse. Her other current medical conditions include chronic bronchial asthma, mild intermittent, and former history of smoking. On 10/17/2019 patient presented to the emergency department with symptoms of cough, and progressive dyspnea, and the onset of symptoms was roughly 3 weeks prior, and there was a concern for COVID. Any activity or lying down would cause significant shortness of breath. Denied chest pain, she did admit to chills and intermittent fevers. Denied any sore throat, diarrhea vomiting, nausea or abdominal pain. No neck stiffness. She was previously seen and evaluated at the [facility] on 10/16/2019, was discharged from there, however her symptoms have worsened and she returned for evaluation to the [facility] this time around. Initial chest x-ray showed mild bibasilar infiltrates, subsegmental atelectasis. CT angios chest showed no evidence of pulmonary embolism, however did show extensive groundglass interstitial pulmonary edema. Initial blood work showed CBC within normal limits, d-dimer mildly elevated to 0.70, electrolytes and renal profile were unremarkable except for mild hypokalemia with potassium is 3.4, pro calcitonin was 0.08, lactic acid was within normal limits at 1.0, urinalysis showed moderate blood, large amount of leuks, white blood cells, test was negative. Patient has been febrile in the last 24 hours, with T-max of 101.7F. She has been intermittently requiring supplemental oxygen, currently on room air, with a pulse ox of 91%, she is short of breath with conversation, and exertion. Sputum for culture was sent, and for PCP pneumonia. COVID 19 is felt to be less likely, but not entirely excluded, COVID 19 PCR pending, patient was started on Bactrim, and Decadron. On 10/20/2019 patient seen in follow-up on [facility] care unit, still very short of breath with any exertion, takes her a while to recover after her trip to the bathroom, lung sounds are diminished bilaterally, the cough is nonproductive and patient is not able to produce a sputum specimen. COVID 19 PCP was negative, patient is afebrile, pulse ox on room air today is 92%. Follow-up chest x-ray today still shows unchanged diffuse opacities compared to yesterday. Patient is on Bactrim, and continues on oral Decadron. Blood culture has shown no growth. The service is following, we discussed the possibility of bronchoscopy with BAL with the patient today, for lower airway sampling and cultures, the patient is agreeable to proceed. On 10/21/2019 patient seen in follow-up on selective care unit. She still very short of breath with any exertion, not bringing up much phlegm, room air pulse ox is 95%, she feels very tired today, she states she didn't sleep well last night, she has been afebrile, hemodynamically stable, continues on Bactrim for possibility of PCP pneumonia, yesterday with switched her oral steroids to IV Solu-Medrol, continues on nebulized bronchodilators. Patient has been nothing by mouth after midnight for bronchoscopy with BAL today. The patient is seen today 10/22/2019 in follow-up on the selective care unit. She is resting quite comfortably in bed. Breathing quite a bit easier today compared to yesterday. She is status post bronchoscopy with BAL. Cultures pending. PCP pending. No worsening shortness of breath cough or congestion. She is maintaining good O2 saturation in the mid 90s on room air. She's afebrile. Hemodynamically stable. White count 11.8. Hemoglobin 11.0. She remains on IV Bactrim along with bronchodilators and IV Solu-Medrol. Objective - Vital Signs Vital signs: Vital Signs Temp 98.3 F 10/22/19 08:00 Pulse 80 10/22/19 11:36 Resp 18 10/22/19 08:00 BP 108/65 10/22/19 08:00 Pulse Ox 95 10/22/19 08:00 Intake & Output 10/21/19 10/22/19 10/22/19 18:59 06:59 18:59 Intake Total 725 1115 240 Balance 725 1115 240 Weight 71.3 kg Intake: IV 725 375 Sodium Chloride 0.9% 1, 525 375 000 ml @ 75 mls/hr IV . [id number] [facility] Rx#:[id number] Intake, IV Titration 500 Amount Sulfamethox-Tmp 80-16Mg/ 500 ml 400 mg In Dextrose 5% in Water 500 ml @ 350 mls /hr IVPB Q8HR [facility] Rx#: [id number] Oral 240 240 Other: Voiding Method Toilet Toilet # Voids 3 0 - Exam GENERAL EXAM: Alert, active, 29-year-old female patient, on room air comfortable in no apparent distress. HEAD: Normocephalic. EYES: Normal reaction of pupils, equal size. NOSE: Clear with pink turbinates. THROAT: No erythema or exudates. NECK: No masses, no JVD. CHEST: No chest wall deformity. LUNGS: Equal air entry with few scattered rhonchi. CVS: S1 and S2 normal with no audible murmur, regular rhythm. ABDOMEN: No hepatosplenomegaly, normal bowel sounds, no guarding or rigidity. SPINE: No scoliosis or deformity SKIN: No rashes CENTRAL NERVOUS SYSTEM: No focal deficits, tone is normal in all 4 extremities. EXTREMITIES: There is no peripheral edema. No clubbing, no cyanosis. Peripheral pulses are intact. - Labs CBC & Chem 7: 10/22/19 05:46 10/21/19 06:23 Labs: Abnormal Lab Results - Last 24 Hours (Table) 10/21/19 10/21/19 10/22/19 Range/Units 16:40 19:41 05:46 WBC 11.8 H (3.8-10.6) k/uL Hgb 11.0 L (11.4-16.0) gm/dL Hct 33.9 L (34.0-46.0) % Neutrophils # 10.9 H (1.3-7.7) k/uL Lymphocytes # 0.6 L (1.0-4.8) k/uL POC Glucose (mg/dL) 141 H 165 H (75-99) mg/dL Microbiology - Last 24 Hours (Table) 10/21/19 13:13 Gram Stain - Preliminary Bronchial Washings - Right Bronchial Washings Culture - Preliminary 10/21/19 13:13 Fungal Culture - Preliminary Bronchial Washings - Right 10/21/19 13:13 Acid Fast Bacilli Culture - Preliminary Bronchial Washings - Right 10/17/19 22:47 Blood Culture - Preliminary Blood No Growth after 96 hours Assessment and Plan Assessment: #1. Bilateral airspace disease, with consideration to PCP pneumonia, in a patient with history of HIV, not currently receiving any treatment. COVID 19 was ruled out based on the Covid 19 PCR coming back negative #2. Acute hypoxic respiratory failure related to the above #3. History of mild intermittent bronchial asthma, not requiring any treatment #4. Former smoker #5. Medical noncompliance Plan: The patient was seen and evaluated by Dr. Major Bronchoscopy with BAL performed yesterday Cultures pending, PCP culture pending Remains on IV Bactrim We'll continue to follow I, the cosigning physician, performed a history & physical examination of the patient. Lungs sounds with bilateral scattered rhonchi. Maintaining good O2 sat urations in the 90s on room air. I discussed the assessment and plan of care with my nurse practitioner, Tanvi Short. I attest to the above note as dictated by her.
--- NOTE | 2019-10-22 12:46 | P.PN ---
Subjective Progress Note Date: 10/22/19 Principal diagnosis: PCP pneumonia Patient seen and examined at bedside. Exertional dyspnea has improved. Patient had a bronchoscopy with BAL yesterday and thrush was identified with PCP pneumonia likely. Patient is a very anxious to go home. She has 6 kids at home who need her care. I informed the patient that the steroids are helping her breath better. Hopefully, she can go home tomorrow on oral antibiotics and steroids if cleared by pulmonary and infectious disease. Patient is a 29-year-old female with a history of mild intermittent asthma, prior tobacco abuse who presented to the ER with shortness of breath, cough, in fact he that it started approximately 4 weeks ago. It has been so severe that she has been mostly laying down at home and not eating or drinking much. On arrival to the ER she was tachycardic with a pulse of 127 was 96% on room air. Laboratory analysis showed d-dimer 0.7, potassium 3.4, ferritin 447, ALT 49, LDH 1081, CRP 36, total protein 8.6. Chest x-ray showed bibasilar infiltrates. CTA of the chest showed no evidence of PE but extensive groundglass interstitial pulmonary edema consistent with viral pneumonia. She w as started on IV fluids and potassium. She was tested for COVID. She was admitted for further monitoring. On the morning after admission her fever spiked at 101.7 and she was tachycardic to 122. Her room air pulse ox was 88%. She met sepsis criteria and was therefore transitioned to inpatient. Pulmonary was consulted. She has not started on IV antibiotics as her pro-calcitonin was 0.08 consistent with likely viral origin but not bacterial. She was started on dexamethasone. It came to light that she was diagnosed with HIV in 2017 and was on treatment but did not know to continue. She has not been back to ID. Due to indolent course and the CXR it was determined she could also have PCP PNA and she was started on Bactrim. Objective - Vital Signs Vital signs: Vital Signs Temp 98.3 F 10/22/19 08:00 Pulse 80 10/22/19 11:36 Resp 18 10/22/19 08:00 BP 108/65 10/22/19 08:00 Pulse Ox 95 10/22/19 08:00 Intake & Output 10/21/19 10/22/19 10/22/19 18:59 06:59 18:59 Intake Total 725 1115 240 Balance 725 1115 240 Weight 71.3 kg Intake: IV 725 375 Sodium Chloride 0.9% 1, 525 375 000 ml @ 75 mls/hr IV . [id number] [facility] Rx#:[id number] Intake, IV Titration 500 Amount Sulfamethox-Tmp 80-16Mg/ 500 ml 400 mg In Dextrose 5% in Water 500 ml @ 350 mls /hr IVPB Q8HR [facility] Rx#: [id number] Oral 240 240 Other: Voiding Method Toilet Toilet # Voids 3 0 - Exam General: [non toxic], [no distress], [appears at stated age] Derm: [warm], [dry] Head: [atraumatic], [normocephalic], [symmetric] Eyes: [EOMI], [no lid lag], [anicteric sclera] Mouth: [no lip lesion], [mucus membranes moist] Cardiovascular: [S1S2 reg], [no murmur], [positive posterior tibial pulse bilateral], Lungs: [Diminished breath sounds bilaterally], [no rhonchi, no rales] , [no accessory muscle use] Abdominal: [soft], [ nontender to palpation], [no guarding], [no appreciable organomegaly] Ext: [no gross muscle atrophy], [no edema], [no contractures] Neuro: [ CN II-XI grossly intact], [no focal neuro deficits] Psych: [Alert], [oriented], [appropriate affect] . - Labs CBC & Chem 7: 10/22/19 05:46 10/21/19 06:23 Labs: Abnormal Lab Results - Last 24 Hours (Table) 10/21/19 10/21/19 10/22/19 Range/Units 16:40 19:41 05:46 WBC 11.8 H (3.8-10.6) k/uL Hgb 11.0 L (11.4-16.0) gm/dL Hct 33.9 L (34.0-46.0) % Neutrophils # 10.9 H (1.3-7.7) k/uL Lymphocytes # 0.6 L (1.0-4.8) k/uL POC Glucose (mg/dL) 141 H 165 H (75-99) mg/dL Microbiology - Last 24 Hours (Table) 10/21/19 13:13 Gram Stain - Preliminary Bronchial Washings - Right Bronchial Washings Culture - Preliminary 10/21/19 13:13 Fungal Culture - Preliminary Bronchial Washings - Right 10/21/19 13:13 Acid Fast Bacilli Culture - Preliminary Bronchial Washings - Right 10/17/19 22:47 Blood Culture - Preliminary Blood No Growth after 96 hours Assessment and Plan Assessment: Pneumonia, acute hypoxic respiratory failure Patient is a very anxious to go home. She has 6 kids at home who need her care. I informed the patient that the steroids are helping her breath better. Hopefully, she can go home tomorrow on oral antibiotics and steroids if cleared by pulmonary and infectious disease. -likely PCP PNA and started on bactrim, sputum culture with PCP stain pending - COVID 19 testing negative at [facility] per patient, COVID negative on 10/17/19 - ID recs appreciated - Pulm recs appreciated bronchoscopy with BAL yesterday showed thrush with likely PCP pneumonia - Diflucan added yesterday - Duo nebs every 4 hours - Mucinex twice a day - IV steroids - Supportive care HIV - Concern for progression off treatment for 2 years, PCP in aids defining lesion - ID recs appreciated - CD 4/CD8 level <0.1 - %CD8 suppressor 75% - %CD4 helper 4% - Absolute CD4 helper 35cell/ul Pleuritic chest pain improved -Likely related to above -Check echocardiogram within normal - [place] Social stressors - no insurance, might have medicaid await recheck Clinical dehydration, resolved GI DVT prophylaxis A.m. labs Anticipated discharge tomorrow
[2019-10-22 16:36] LABS: LD Isoenzymes 1 15 % (19-38); LD Isoenzymes 2 34 % (30-43); LD Isoenzymes 3 32 % (16-26); LD Isoenzymes 4 13 % (3-12); LD Isoenzymes 5 6 % (3-14); Lactacte Dehydrogenase(LD) ISO 329 U/L (100-200)
[2019-10-22] MEDS: SODIUM CHLORIDE 0.9% 1,000 ML IV SCH (16:49)
[2019-10-22 17:09] LABS: Glucose,Whole Blood 162 mg/dL (75-99)
--- NOTE | 2019-10-22 17:28 | PN ---
PROGRESS NOTE DATE OF SERVICE: 10/22/2019 REASON FOR FOLLOWUP: 1. Pneumonia, likely PCP. 2. HIV/Aids. INTERVAL HISTORY: Patient is currently afebrile. The patient is breathing comfortably on room air. The patient denies having any chest pain. No shortness of breath. Minimal cough. No nausea, no vomiting. No abdominal pain. No diarrhea. She is anxious to go home. PHYSICAL EXAMINATION: Blood pressure 100/65 with a pulse of 97, temperature 98.3. She is 95% on room air. General description is a middle-aged female, up in the bed in no distress. RESPIRATORY SYSTEM: Unlabored breathing, decreased breath sounds at the base. No wheeze. HEART: S1, S2. Regular rate and rhythm. ABDOMEN: Soft. No tenderness. LABS: Hemoglobin is 11.9, white count of 11.8, and bronchoscopy cultures currently pending. DIAGNOSTIC IMPRESSION/PLAN: 1. Patient with pneumonia, likely PCP in this patient with acquired immunodeficiency syndrome. Chest x-ray did show improvement. The patient is currently on Bactrim, will be transitioned to Bactrim DS 2 tablets 3 times a day to finish a 3-week course of therapy and should be tapered down by Pulmonary. 2. Oral thrush. Continue Diflucan swish and swallow. 3. HIV. started after the patient's pneumonia has improved and the genotype is available. MMODL / IJN: [id number] /
[2019-10-22 17:29] VITALS: BP 104/66; PULSE 85
--- NOTE | 2019-10-22 17:37 | P.DS ---
Providers Date of admission: 10/18/19 13:41 Expected date of discharge: 10/22/19 Attending physician: Maritza Pedraza MD Consults: 10/18/19 11:56 Consult Physician Routine Consulting Provider: Rebekah Coelho Consult Reason/Comments: Pneumonitis vs COVID Do you want consulting provider notified?: Yes 10/18/19 14:35 Consult Physician Routine Consulting Provider: Franci Maki Consult Reason/Comments: Possible HIV, PCP vs COVID Do you want consulting provider notified?: Yes Primary care physician: Stated None Hospital Course: Admitting diagnoses: shortness of breath Discharge diagnoses: Acute hypoxic respiratory failure improved PCP pneumonia Thrush HIV COV ID19 negative Patient seen and examined at bedside. Exertional dyspnea has improved. Patient had a bronchoscopy with BAL yesterday and thrush was identified with PCP pneumonia likely. Patient is a very anxious to go home. She has 6 kids at home who need her care. I informed the patient that the steroids are helping her breath better. patient was transitioned to oral antibiotics, antifungal and oral steroid taper. Patient will be discharged with [facility]. Patient has nebulizer machine at home. Patient is a 29-year-old female with a history of mild intermittent asthma, prior tobacco abuse who presented to the ER with shortness of breath, cough, in fact he that it started approximately 4 weeks ago. It has been so severe that she has been mostly laying down at home and not eating or drinking much. On arrival to the ER she was tachycardic with a pulse of 127 was 96% on room air. Laboratory analysis showed d-dimer 0.7, potassium 3.4, ferritin 447, ALT 49, LDH 1081, CRP 36, total protein 8.6. Chest x-ray showed bibasilar infiltrates. CTA of the chest showed no evidence of PE but extensive groundglass interstitial pulmonary edema consistent with viral pneumonia. She was started on IV fluids and potassium. She was tested for COVID. She was admitted for further monitoring. On the morning after admission her fever spiked at 101.7 and she was tachycardic to 122. Her room air pulse ox was 88%. She met sepsis criteria and was therefore transitioned to inpatient. Pulmonary was consulted. She has not started on IV antibiotics as her pro-calcitonin was 0.08 consistent with likely viral origin but not bacterial. She was started on dexamethasone. It came to light that she was diagnosed with HIV in 2017 and was on treatment but did not know to continue. She has not been back to ID. Due to indolent course and the CXR it was determined she could also have PCP PNA and she was started on Bactrim. vitals:heart rate 85 respiratory rate 18 blood pressure 02/21/1964 oxygen saturation 95% room air General: [non toxic], [no distress], [appears at stated age] Derm: [warm], [dry] Head: [atraumatic], [normocephalic], [symmetric] Eyes: [EOMI], [no lid lag], [anicteric sclera] Mouth: [no lip lesion], [mucus membranes moist] Cardiovascular: [S1S2 reg], [no murmur], [positive posterior tibial pulse bilateral], Lungs: [CTA bilateral], [no rhonchi, no rales] , [no accessory muscle use] Abdominal: [soft], [ nontender to palpation], [no guarding], [no appreciable organomegaly] Ext: [no gross muscle atrophy], [no edema], [no contractures] Neuro: [ CN II-XI grossly intact], [no focal neuro deficits] Psych: [Alert], [oriented], [appropriate affect] Follow-up with infectious disease in 1 week Follow-up with PCP in 2-7 days Condition fair Activity as tolerated Diet regular Patient Condition at Discharge: Fair Plan - Discharge Summary Discharge Rx Participant: Yes New Discharge Prescriptions: New Sulfamethox-Tmp 800-160Mg [Bactrim DS 800-160 mg] 2 tab PO Q8HR 16 Days #96 tab Fluconazole [Diflucan] 200 mg PO DAILY #7 tab predniSONE [Deltasone] See Taper PO BID 21 Days #70 tab Fluconazole [Diflucan] 200 mg PO HS 7 Days #7 tab Ipratropium-Albuterol Nebulize [Duoneb 0.5 mg-3 mg/3 ml Soln] 3 ml INHALATION RT-Q4H 30 Days #100 ml guaiFENesin [Mucinex] 600 mg PO Q12HR 30 Days #60 tablet.er Nystatin 100,000 Unit/ml Susp [Mycostatin Oral Susp] 500,000 unit PO QID 7 Days #30 ml Sulfamethox-Tmp 800-160Mg [Bactrim DS 800-160 mg] 2 each PO TID 16 Days #96 tab Discontinued Azithromycin [Zithromax Z-pack] See Taper PO DIRECTED Discharge Medication List Fluconazole [Diflucan] 200 mg PO DAILY #7 tab 10/22/19 [Rx] Fluconazole [Diflucan] 200 mg PO HS 7 Days #7 tab 10/22/19 [Rx] Ipratropium-Albuterol Nebulize [Duoneb 0.5 mg-3 mg/3 ml Soln] 3 ml INHALATION RT-Q4H 30 Days #100 ml 10/22/19 [Rx] Nystatin 100,000 Unit/ml Susp [Mycostatin Oral Susp] 500,000 unit PO QID 7 Days #30 ml 10/22/19 [Rx] Sulfamethox-Tmp 800-160Mg [Bactrim DS 800-160 mg] 2 each PO TID 16 Days #96 tab 10/22/19 [Rx] Sulfamethox-Tmp 800-160Mg [Bactrim DS 800-160 mg] 2 tab PO Q8HR 16 Days #96 tab 10/22/19 [Rx] guaiFENesin [Mucinex] 600 mg PO Q12HR 30 Days #60 tablet.er 10/22/19 [Rx] predniSONE [Deltasone] See Taper PO BID 21 Days #70 tab 10/22/19 [Rx] Follow up Appointment(s)/Referral(s): None,Stated [Primary Care Provider] - 1-2 days Franci Maki MD [STAFF PHYSICIAN] - 2 Weeks Ambulatory/Diagnostic Orders: Basic Metabolic Panel [LAB.AMB] Location: None Selected Patient Instructions/Handouts: HIV Transmission (ED), Pneumocystis Jiroveci Pneumonia (DC), HIV Infection (DC), AIDS (DC), Anxiety (ED), Tachycardia (ED) Discharge Disposition: HOME SELF-CARE
[2019-10-22] MEDS ORDERED: predniSONE 20 MG TAB PO SCH (21:00)
[2019-10-22] MEDS ORDERED: SULFAMETHOX-TMP 800-160MG 1 EACH TAB PO SCH (22:00)
[2019-10-23] MEDS ORDERED: predniSONE 20 MG TAB PO SCH (09:00)
--- NOTE | 2019-10-23 15:30 | CDI ---
Documentation Clarification Form Date: 10/23/19 From: Lucina Kebede Phone: If you have a question about this query, please contact Sara Weiner, Room Service Food Service Attendant at [phone] between 8am and 5pm. Admit Date: 10/18/19 Discharge Date: 10/22/19 Patient Name: HAYES FISH Visit Number: [id number] ATTENTION: The Clinical Documentation Specialists (CDI) and [facility] Coding Staff appreciate your assistance in clarifying documentation. Please respond to the clarification below the line at the bottom and electronically sign. The CDI & [facility] Coding staff will review the response and follow-up if needed. Please note: Queries are made part of the Legal Health Record. If you have any questions, please contact the author of this message via ITS. Dear Dr. Elaina Lorenzo, HIV was documented in the Dr Maki's consult, Dr Major's consult, multiple PNs and DS. Patients History/Risk Factors: Pharyngeal thrush, pneumonia, sepsis History of HIV related illness: yes Clinical Indicators: She was found to have pneumonia, sepsis and HIV. CD4 Count: T-Suppressor Cells-617, % CD$ [place]-4, Absolute CD4 [place]-35, CD4/CD8 Ratio- <0.1. CD8 Suppressor 75 Other lab values: HIV-1 antibody-reactive, HIV p24 Antibody-reactive Treatment: IV fluids, Hexadrol 5 mg po daily, Sulfamethox-Tmp IV, IV Solu- MEDROL, Prednisone 60 mg BID In your professional opinion, can you please clarify if the sepsis was related to the HIV? Sepsis not HIV infection Sepsis a HIV infection Unable to determine Other, please specify MTDD
--- NOTE | 2019-10-23 15:36 | CDI ---
Documentation Clarification Form Date: 10/23/19 From: Lucina Kebede Phone: If you have a question about this query, please contact Sara Weiner, Apprentice Painter Neckties at [phone] between 8am and 5pm. Admit Date: 10/18/19 Discharge Date: 10/22/19 Patient Name: HAYES FISH Visit Number: [id number] ATTENTION: The Clinical Documentation Specialists (CDI) and [facility] Coding Staff appreciate your assistance in clarifying documentation. Please respond to the clarification below the line at the bottom and electronically sign. The CDI & [facility] Coding staff will review the response and follow-up if needed. Please note: Queries are made part of the Legal Health Record. If you have any questions, please contact the author of this message via ITS. Dear Dr. Elaina Lorenzo, The final diagnosis of the PAP Stain states: GMS stain is negative for Pneumocystis organisms (controls appropriate). Documentation states: Pneumonia likely PCP in this patient with AIDS. Patient history/risk factors: Hx AIDS, pharyngeal thrush, pneumonia, sepsis Clinical Indicators: HIV-1 antibody-reactive, HIV p24 Antibody-reactive Treatment: IV fluids, Hexadrol 5 mg po daily, Sulfamethox-Tmp IV, IV Solu- MEDROL, Prednisone 60 mg BID In your professional opinion, do you agree with the PAP stain specifying that GMS stain is negative for Pneumocystis? PCP ruled out Most likey PCP Other (please specify) Unable to determine Sepsis secondary to most likely PCP pneumomnia with underlying HIV MTDD
== END 2019-10-22 19:45 | disposition home or self-care (01) | DRG 974 ==
LOC: EC 20:51 → 3SCARD 23:19 → OBSVTOIN 10-18 13:41
PROVIDERS: ADMIT Internal Medicine; ATTEND Internal Medicine
PROC: 0B9D8ZX Drainage of Right Middle Lung Lobe, Via Natural or Artificial Opening Endoscopic, Diagnostic (ICD-10-PCS; principal; 2019-10-18)
DX: B20 Human immunodeficiency virus [HIV] disease (principal); B59 Pneumocystosis; J96.01 Acute respiratory failure with hypoxia; A41.89 Other specified sepsis; B37.0 Candidal stomatitis; J98.11 Atelectasis; Z20.828 Contact with and (suspected) exposure to other viral communicable diseases; E86.0 Dehydration; T37.5X6A Underdosing of antiviral drugs, initial encounter; Z91.128 Patient's intentional underdosing of medication regimen for other reason; J45.20 Mild intermittent asthma, uncomplicated; Z87.891 Personal history of nicotine dependence; Z88.1 Allergy status to other antibiotic agents; Z88.0 Allergy status to penicillin; Z88.8 Allergy status to other drugs, medicaments and biological substances; Y63.6 Underdosing and nonadministration of necessary drug, medicament or biological substance
CPT/HCPCS: 31624; 36415; 36600; 71045; 71046; 71275; 80053; 81001; 81025; 82550; 82553; 82728; 82805; 83605; 83615; 83625; 83735; 83880; 84145; 84484; 85025; 85027; 85379; 85384; 85610; 85730; 86140; 86360; 87040; 87070; 87102; 87116; 87205; 87206; 87252; 87299; 87389; 87390; 87496; 87498; 87502; 87529; 87535; 87634; 87798; 87901; 88108; 88305; 88312; 89050; 93005; 93306; 94640; 96360; 99285

== ENCOUNTER → 2019-12-30 | Outpatient (CLI) | payer OTHER ==
[2019-12-30 15:09] LABS: Basophils % (A) 0 %; Eosinophils # (A) 0.1 k/uL (0-0.7); Eosinophils % (A) 2 %; HCT 37.9 % (34.0-46.0); HGB 12.1 gm/dL (11.4-16.0); Lymphocytes # (A) 1.6 k/uL (1.0-4.8); Lymphocytes % (A) 38 %; MCH 28.9 pg (25.0-35.0); MCHC 31.9 g/dL (31.0-37.0); MCV 90.6 fL (80.0-100.0); Mean Platelet Volume 6.8; Monocytes # (A) 0.1 k/uL (0-1.0); Monocytes % (A) 3 %; Neutrophils # (A) 2.3 k/uL (1.3-7.7); Neutrophils % (A) 54 %; Platelet Count 253 k/uL (150-450); RBC 4.18 m/uL (3.80-5.40); RDW 15.9 % (11.5-15.5); WBC 4.2 k/uL (3.8-10.6)
[2019-12-31 00:40] LABS: African American GFR (CKD) 116.3 (60.0-200.0); Albumin 4.2 g/dL (3.80-4.90); Albumin/Globulin Ratio 1.56 (1.60-3.17); Anion Gap 6.7 mmol/L (4.00-12.00); BUN/Creat Ratio 12.5 Ratio (12.00-20.00); Calcium 9.5 mg/dL (8.7-10.3); Carbon Dioxide 27.3 mmol/L (21.6-31.8); Globulin 2.7 g/dL (1.6-3.3); Non-African American GFR(CKD) 100.3 (60.0-200.0); Potassium 4.3 mmol/L (3.5-5.5); Total Bilirubin 0.2 mg/dL (0.2-1.2); Total Protein 6.9 g/dL (6.2-8.2)
[2019-12-31 12:37] LABS: T4/T8 Ratio (CD4:CD8) 0.2 (1.0-3.7)
[2019-12-31 17:17] LABS: HIV-1 RNA DETECTED (Not detected); HIV-1 RNA, Quant 120 Copies/mL (<40)
== END | disposition home or self-care (01) ==
LOC: LABWHC1 14:23
PROVIDERS: ATTEND Internal Medicine Infectious Disease
DX: E56.9 Vitamin deficiency, unspecified (principal); B20 Human immunodeficiency virus [HIV] disease; Z13.228 Encounter for screening for other metabolic disorders
CPT/HCPCS: 36415; 80053; 82306; 82607; 84443; 84630; 85025; 86360; 87536

== ENCOUNTER 2020-08-31 05:42 | Emergency (ER) | payer OTHER ==
[2020-08-31 05:47] VITALS: BP 131/83; PULSE 103; RESP 20; TEMP 98.3
[2020-08-31] MEDS ORDERED: FAMOTIDINE 20 MG TAB PO STA (06:05)
[2020-08-31] MEDS ORDERED: methylPREDNISolone SOD SUCCI 125 MG/2 ML VIAL IM ONE (06:05)
--- NOTE | 2020-08-31 06:07 | ED ---
General Adult HPI - General Chief complaint: Skin/Abscess/Foreign Body Stated complaint: Allergic reaction, hives Time Seen by Provider: 08/31/20 05:54 Source: patient, RN notes reviewed Mode of arrival: ambulatory Limitations: no limitations - History of Present Illness Initial comments: 30-year-old female presents emergency Department chief complaint rash. Patient started a few days ago. Patient states she is given chest steroids and resolved but has slowly returned. Patient states that is very itchy patient has a new products. Patient states she's never had a reaction like this in the past. Denies any fevers or chills no difficulty breathing or difficulty swallowing. - Related Data Previous Rx's Medication Instructions Recorded Fluconazole [Diflucan] 200 mg PO DAILY #7 tab 10/22/19 Ipratropium-Albuterol Nebulize 3 ml INHALATION RT-Q4H 30 Days 10/22/19 [Duoneb 0.5 mg-3 mg/3 ml Soln] #100 ml Nystatin 100,000 Unit/ml Susp 500,000 unit PO QID 7 Days #30 ml 10/22/19 [Mycostatin Oral Susp] Sulfamethox-Tmp 800-160Mg [Bactrim 2 tab PO Q8HR 16 Days #96 tab 10/22/19 DS 800-160 mg] guaiFENesin [Mucinex] 600 mg PO Q12HR 30 Days #60 10/22/19 tablet.er predniSONE [Deltasone] See Taper PO BID 21 Days #70 tab 10/22/19 Famotidine [Pepcid] 20 mg PO BID #14 tablet 08/31/20 predniSONE 50 mg PO DAILY #5 tab 08/31/20 Allergies Allergy/AdvReac Type Severity Reaction Status Date / Time cephalexin monohydrate Allergy Dyspnea Verified 08/31/20 05:47 [From Keflex] Penicillins Allergy Swelling Verified 08/31/20 05:47 phenytoin sodium Allergy Unknown Verified 08/31/20 05:47 [From Dilantin] phenytoin sodium extended Allergy Unknown Verified 08/31/20 05:47 [From Dilantin] Review of Systems ROS Statement: Those systems with pertinent positive or pertinent negative responses have been documented in the HPI. ROS Other: All systems not noted in ROS Statement are negative. Past Medical History Past Medical History: Asthma History of Any Multi-Drug Resistant Organisms: None Reported Past Surgical History: No Surgical Hx Reported Past Psychological History: No Psychological Hx Reported Smoking Status: Current every day smoker Past Alcohol Use History: None Reported Past Drug Use History: Marijuana General Exam Limitations: no limitations General appearance: alert, in no apparent distress Head exam: Present: atraumatic, normocephalic, normal inspection Respiratory exam: Present: normal lung sounds bilaterally. Absent: respiratory distress, wheezes, rales, rhonchi, stridor Cardiovascular Exam: Present: regular rate, normal rhythm, normal heart sounds. Absent: systolic murmur, diastolic murmur, rubs, gallop, clicks GI/Abdominal exam: Present: soft, normal bowel sounds. Absent: distended, tenderness, guarding, rebound, rigid Neurological exam: Present: alert Skin exam: Present: warm, dry, intact, normal color, rash, urticaria Course Vital Signs 08/31/20 05:45 Temperature 98.3 F Pulse Rate 103 H Respiratory 20 Rate Blood Pressure 131/83 O2 Sat by Pulse 96 Oximetry Medical Decision Making - Medical Decision Making Patient has urticaria with no respiratory symptoms. Patient was provided steroids, antihistamines. Patient will follow-up with PCP and return for any worsening change in symptoms. Disposition Clinical Impression: Urticaria Disposition: HOME SELF-CARE Condition: Stable Instructions (If sedation given, give patient instructions): Urticaria (ED) Additional Instructions: Please return to the Emergency Department if symptoms worsen or any other concerns. Prescriptions: Famotidine [Pepcid] 20 mg PO BID #14 tablet predniSONE 50 mg PO DAILY #5 tab Is patient prescribed a controlled substance at d/c from ED?: No Referrals: Deepa Nelson MD [Primary Care Provider] - 1-2 days Time of Disposition: 06:07
== END 2020-08-31 06:16 | disposition home or self-care (01) ==
LOC: EC 05:42
DX: L50.9 Urticaria, unspecified (principal); J45.909 Unspecified asthma, uncomplicated; F17.200 Nicotine dependence, unspecified, uncomplicated; Z88.1 Allergy status to other antibiotic agents; Z88.0 Allergy status to penicillin; Z88.8 Allergy status to other drugs, medicaments and biological substances
CPT/HCPCS: 96372; 99283; J2930

== ENCOUNTER → 2021-01-27 | Outpatient (CLI) | payer OTHER ==
[2021-01-27 09:56] LABS: Basophils % (A) 0 %; Eosinophils % (A) 1 %; HCT 42.7 % (34.0-46.0); Lymphocytes # (A) 0.7 k/uL (1.0-4.8); Lymphocytes % (A) 26 %; MCH 30.9 pg (25.0-35.0); MCHC 32.8 g/dL (31.0-37.0); MCV 94.1 fL (80.0-100.0); Mean Platelet Volume 8.9; Monocytes # (A) 0.1 k/uL (0-1.0); Monocytes % (A) 4 %; Neutrophils # (A) 1.8 k/uL (1.3-7.7); Neutrophils % (A) 65 %; Platelet Count 108 k/uL (150-450); RBC 4.54 m/uL (3.80-5.40); RDW 13.8 % (11.5-15.5); WBC 2.8 k/uL (3.8-10.6)
[2021-01-27 12:14] LABS: Erythrocyte Sedimentation Rate 10 mm/hr (0-20)
[2021-01-27 15:41] LABS: African American GFR (CKD) 123.6 (60.0-200.0); BUN/Creat Ratio 16.01 Ratio (12.00-20.00); Blood Urea Nitrogen 12.1 mg/dL (9.0-27.0); Calcium 9.3 mg/dL (8.7-10.3); Carbon Dioxide 28.4 mmol/L (20.0-27.5); Chloride 104 mmol/L (96-109); Glucose 84 mg/dL (70-110); Non-African American GFR(CKD) 106.7 (60.0-200.0); Potassium 3.6 mmol/L (3.5-5.5); Sodium 143 mmol/L (135-145)
[2021-01-27 15:48] LABS: C Reactive Protein <0.30 mg/dL (0.00-0.80)
[2021-01-28 11:02] LABS: T Helper Cell (CD4) 36 cell/ul (443-1471); T Helper Cell (CD4) % 5 % (35-66); T Suppressor Cell (CD8) 521 cell/ul (190-832); T Suppressor Cell (CD8) % 67 % (9-37); T4/T8 Ratio (CD4:CD8) <0.1 (1.0-3.7)
[2021-01-28 18:17] LABS: Immunoglobulin M 83.8 mg/dL (40.0-280.0)
== END | disposition home or self-care (01) ==
LOC: LABWHC1 08:14
PROVIDERS: ATTEND Family Medicine
DX: D72.819 Decreased white blood cell count, unspecified (principal); B20 Human immunodeficiency virus [HIV] disease
CPT/HCPCS: 36415; 80048; 82784; 82785; 84165; 85025; 85652; 86038; 86140; 86360; 87536

== ENCOUNTER 2021-03-30 08:37 | Emergency (ER) | payer OTHER ==
[2021-03-30 08:44] VITALS: RESP 18
[2021-03-30 09:32] LABS: Basophils % (A) 0 %; Eosinophils % (A) 1 %; HCT 40.8 % (34.0-46.0); HGB 13.8 gm/dL (11.4-16.0); Lymphocytes # (A) 0.6 k/uL (1.0-4.8); Lymphocytes % (A) 27 %; MCH 30.1 pg (25.0-35.0); MCHC 33.7 g/dL (31.0-37.0); MCV 89.5 fL (80.0-100.0); Mean Platelet Volume 9.4; Monocytes # (A) 0.1 k/uL (0-1.0); Monocytes % (A) 5 %; Neutrophils # (A) 1.5 k/uL (1.3-7.7); Neutrophils % (A) 65 %; Platelet Count 104 k/uL (150-450); RBC 4.56 m/uL (3.80-5.40); RDW 13.9 % (11.5-15.5); WBC 2.3 k/uL (3.8-10.6)
--- NOTE | 2021-03-30 09:38 | CT ---
EXAMINATION TYPE: CT brain cspine wo con DATE OF EXAM: 03/30/2021 COMPARISON: CT brain December 20, 2010. HISTORY: pain between shoulder blades up through neck, WILCOX, bilat upper ext numbness, weakness. CT DLP: 1109.8 mGycm. Automated Exposure Control for Dose Reduction was Utilized. TECHNIQUE: CT scan of the head and cervical spine are performed without contrast. FINDINGS: There is no acute intracranial hemorrhage, mass effect, or midline shift identified. The ventricles and sulci are within normal limits in size. Castro-white matter differentiation is maintain ed. There is new near complete opacification of the right maxillary along with bilateral sphenoid and ethmoid sinuses. There is new complete opacification of bilateral frontal sinuses. There is moderate to severe mucosal thickening with dependent air-fluid level in the left maxillary sinus. No bony santosh truction. Globes are intact. Cervical spine is visualized in its entirety from C1 through upper thoracic levels and demonstrates s atisfactory alignment without evidence of acute fracture or dislocation. Prevertebral soft tissue ap pears within normal limits. The C1-C2 articulation is within normal limits on the coronal images. V ertebral body heights and disc space heights are maintained. Spinal canal is preserved. Axial images show no large disc herniation. Lung apices show no pneumothorax. Thyroid gland appears within normal limits. IMPRESSION: 1. There is no acute fracture or dislocation evident in the cervical spine. 2. No acute intracranial hemorrhage or midline shift is seen. Acute on chronic paranasal pansinusitis is noted.
[2021-03-30 09:51] LABS: ALT 24 U/L (4-34); AST 44 U/L (14-36); African American GFR (CKD) >90 (>60 ml/min/1.73 sqM); Albumin 4.1 g/dL (3.5-5.0); Alkaline Phosphatase 63 U/L (38-126); Anion Gap 9 mmol/L; Blood Urea Nitrogen 10 mg/dL (7-17); C Reactive Protein 0.6 mg/dL (<1.0); Calcium 8.8 mg/dL (8.4-10.2); Carbon Dioxide 24 mmol/L (22-30); Chloride 107 mmol/L (98-107); Glucose 110 mg/dL (74-99); Non-African American GFR(CKD) >90 (>60 ml/min/1.73 sqM); Sodium 140 mmol/L (137-145); Total Bilirubin 0.7 mg/dL (0.2-1.3); Total Protein 8.1 g/dL (6.3-8.2)
[2021-03-30] MEDS ORDERED: KETOROLAC 15 MG/ML 1 ML VIAL IVP STA (10:09)
[2021-03-30] MEDS ORDERED: METOCLOPRAMIDE 5 MG/ML 2 ML VIAL IVP STA (10:09)
[2021-03-30] MEDS ORDERED: diphenhydrAMINE 50 MG/ML 1 ML VIAL IVP STA (10:09)
[2021-03-30 10:17] LABS: Potassium 3.9 mmol/L (3.5-5.1)
--- NOTE | 2021-03-30 10:36 | ED ---
General Adult HPI - General Chief complaint: Headache Stated complaint: Sent for spinal tap, rule out menigitis Time Seen by Provider: 03/30/21 08:47 Source: patient, RN notes reviewed Mode of arrival: ambulatory Limitations: no limitations - History of Present Illness Initial comments: This a 30-year-old female sent emergency Department chief complaints of headaches. Patient states been having ongoing worsening headaches over the last month or 2. Patient states that she finally follow-up with neurology for these headaches and which she was ago yesterday was told to come emergency department for possible meningitis. She denies any known fever or chills. Patient states that the headaches wax and wane they do resolve states medications do not t ypically help with. She has no complaints of neck pain or neck stiffness at this time she states she occasionally has arm numbness and tingling but states that is not currently present no focal weakness denies chest pain shortness breath no cough or cold like symptoms she did have covid over a month ago. Patient states that she has no photophobia she states that sounds sometimes bother no nausea vomiting no leg paresthesias no weakness. Patient states that symptoms seemed to start around the time of been diagnosed with psoriasis - Related Data Previous Rx's Medication Instructions Recorded Fluconazole [Diflucan] 200 mg PO DAILY #7 tab 10/22/19 Ipratropium-Albuterol Nebulize 3 ml INHALATION RT-Q4H 30 Days 10/22/19 [Duoneb 0.5 mg-3 mg/3 ml Soln] #100 ml Nystatin 100,000 Unit/ml Susp 500,000 unit PO QID 7 Days #30 ml 10/22/19 [Mycostatin Oral Susp] Sulfamethox-Tmp 800-160Mg [Bactrim 2 tab PO Q8HR 16 Days #96 tab 10/22/19 DS 800-160 mg] guaiFENesin [Mucinex] 600 mg PO Q12HR 30 Days #60 10/22/19 tablet.er predniSONE [Deltasone] See Taper PO BID 21 Days #70 tab 10/22/19 Famotidine [Pepcid] 20 mg PO BID #14 tablet 08/31/20 predniSONE 50 mg PO DAILY #5 tab 08/31/20 Butalb/APAP/Caff 50-325-40Mg 1 tab PO Q4H PRN #10 tablet 03/30/21 [Fioricet 50-325-40] Allergies Allergy/AdvReac Type Severity Reaction Status Date / Time cephalexin monohydrate Allergy Dyspnea Verified 03/30/21 08:44 [From Keflex] Penicillins Allergy Swelling Verified 03/30/21 08:44 phenytoin sodium Allergy Unknown Verified 03/30/21 08:44 [From Dilantin] phenytoin sodium extended Allergy Unknown Verified 03/30/21 08:44 [From Dilantin] Review of Systems ROS Statement: Those systems with pertinent positive or pertinent negative responses have been documented in the HPI. ROS Other: All systems not noted in ROS Statement are negative. Past Medical History Past Medical History: Asthma History of Any Multi-Drug Resistant Organisms: None Reported Past Surgical History: No Surgical Hx Reported Past Psychological History: No Psychological Hx Reported Smoking Status: Current every day smoker Past Alcohol Use History: None Reported Past Drug Use History: Marijuana General Exam Limitations: no limitations General appearance: alert, in no apparent distress Head exam: Present: atraumatic, normocephalic, normal inspection Eye exam: Present: normal appearance, PERRL, EOMI. Absent: scleral icterus, co njunctival injection, periorbital swelling ENT exam: Present: normal exam, normal oropharynx, mucous membranes moist Neck exam: Present: normal inspection, full ROM, other (Patient freely moves her neck with no discomfort). Absent: tenderness, meningismus, lymphadenopathy Respiratory exam: Present: normal lung sounds bilaterally. Absent: respiratory distress, wheezes, rales, rhonchi, stridor Cardiovascular Exam: Present: regular rate, normal rhythm, normal heart sounds. Absent: systolic murmur, diastolic murmur, rubs, gallop, clicks GI/Abdominal exam: Present: soft, normal bowel sounds. Absent: distended, tenderness, guarding, rebound, rigid Back exam: Absent: CVA tenderness (R), CVA tenderness (L) Neurological exam: Present: alert, oriented X3, CN II-XII intact, reflexes normal. Absent: motor sensory deficit Course Vital Signs 03/30/21 08:39 Temperature 98.0 F Pulse Rate 109 H Respiratory 18 Rate Blood Pressure 132/88 O2 Sat by Pulse 98 Oximetry Medical Decision Making - Medical Decision Making Patient did have full labs, CT with no significant findings. Patient symptoms may related to her psoriasis versus migraine. Patient will follow-up with her neurologist for further treatment. Patient we discharged stable condition she has no meningismus and no concerns for meningitis as this has been present for over one month. - Lab Data Result diagrams: 03/30/21 09:11 03/30/21 09:11 Lab Results 03/30/21 03/30/21 03/30/21 Range/Units 09:11 09:11 09:11 WBC 2.3 L (3.8-10.6) k/uL RBC 4.56 (3.80-5.40) m/uL Hgb 13.8 (11.4-16.0) gm/dL Hct 40.8 (34.0-46.0) % MCV 89.5 (80.0-100.0) fL MCH 30.1 (25.0-35.0) pg MCHC 33.7 (31.0-37.0) g/dL RDW 13.9 (11.5-15.5) % Plt Count 104 L (150-450) k/uL MPV 9.4 Neutrophils % 65 % Lymphocytes % 27 % Monocytes % 5 % Eosinophils % 1 % Basophils % 0 % Neutrophils # 1.5 (1.3-7.7) k/uL Lymphocytes # 0.6 L (1.0-4.8) k/uL Monocytes # 0.1 (0-1.0) k/uL Eosinophils # 0.0 (0-0.7) k/uL Basophils # 0.0 (0-0.2) k/uL Sodium 140 (137-145) mmol/L Potassium 3.9 (3.5-5.1) mmol/L Chloride 107 (98-107) mmol/L Carbon Dioxide 24 (22-30) mmol/L Anion Gap 9 mmol/L BUN 10 (7-17) mg/dL Creatinine 0.67 (0.52-1.04) mg/dL Est GFR (CKD-EPI)AfAm >90 (>60 ml/min/1.73 sqM) Est GFR (CKD-EPI)NonAf >90 (>60 ml/min/1.73 sqM) Glucose 110 H (74-99) mg/dL Plasma Lactic Acid Gerson 0.5 L (0.7-2.0) mmol/L Calcium 8.8 (8.4-10.2) mg/dL Total Bilirubin 0.7 (0.2-1.3) mg/dL AST 44 H (14-36) U/L ALT 24 (4-34) U/L Alkaline Phosphatase 63 (38-126) U/L C-Reactive Protein 0.6 (<1.0) mg/dL Total Protein 8.1 (6.3-8.2) g/dL Albumin 4.1 (3.5-5.0) g/dL Heterophile Antibody (Negative) 03/30/21 Range/Units 09:11 WBC (3.8-10.6) k/uL RBC (3.80-5.40) m/uL Hgb (11.4-16.0) gm/dL Hct (34.0-46.0) % MCV (80.0-100.0) fL MCH (25.0-35.0) pg MCHC (31.0-37.0) g/dL RDW (11.5-15.5) % Plt Count (150-450) k/uL MPV Neutrophils % % Lymphocytes % % Monocytes % % Eosinophils % % Basophils % % Neutrophils # (1.3-7.7) k/uL Lymphocytes # (1.0-4.8) k/uL Monocytes # (0-1.0) k/uL Eosinophils # (0-0.7) k/uL Basophils # (0-0.2) k/uL Sodium (137-145) mmol/L Potassium (3.5-5.1) mmol/L Chloride (98-107) mmol/L Carbon Dioxide (22-30) mmol/L Anion Gap mmol/L BUN (7-17) mg/dL Creatinine (0.52-1.04) mg/dL Est GFR (CKD-EPI)AfAm (>60 ml/min/1.73 sqM) Est GFR (CKD-EPI)NonAf (>60 ml/min/1.73 sqM) Glucose (74-99) mg/dL Plasma Lactic Acid Gerson (0.7-2.0) mmol/L Calcium (8.4-10.2) mg/dL Total Bilirubin (0.2-1.3) mg/dL AST (14-36) U/L ALT (4-34) U/L Alkaline Phosphatase (38-126) U/L C-Reactive Protein (<1.0) mg/dL Total Protein (6.3-8.2) g/dL Albumin (3.5-5.0) g/dL Heterophile Antibody Negative (Negative) Disposition Clinical Impression: Frequent headaches Disposition: HOME SELF-CARE Condition: Stable Instructions (If sedation given, give patient instructions): Acute Headache (ED) Additional Instructions: Please return to the Emergency Department if symptoms worsen or any other concerns. Prescriptions: Butalb/APAP/Caff 50-325-40Mg [Fioricet 50-325-40] 1 tab PO Q4H PRN #10 tablet PRN Reason: Headache Is patient prescribed a controlled substance at d/c from ED?: No Referrals: Deepa Nelson MD [Primary Care Provider] - 1-2 days Time of Disposition: 10:36
[2021-03-30 10:55] VITALS: BP 115/88; PULSE 114; TEMP 98.2
== END 2021-03-30 10:53 | disposition home or self-care (01) ==
LOC: EC 08:37
DX: R51.9 Headache, unspecified (principal); F17.200 Nicotine dependence, unspecified, uncomplicated; J45.909 Unspecified asthma, uncomplicated; Z88.0 Allergy status to penicillin; Z88.8 Allergy status to other drugs, medicaments and biological substances; Z88.1 Allergy status to other antibiotic agents
CPT/HCPCS: 36415; 80053; 83605; 85025; 86140; 86308; 72125; 70450; 99284; 96374; 96375; J1200; J2765; J1885

== ENCOUNTER → 2021-04-21 | Outpatient (CLI) | payer OTHER ==
--- NOTE | 2021-04-21 08:54 | CT ---
EXAMINATION TYPE: CT angio chest DATE OF EXAM: 04/21/2021 COMPARISON: CT dated 10/17/2019 HISTORY: r/o PE, Covid feb 2021 CT DLP: 179.3 mGy.cm. Automated Exposure Control for Dose Reduction was Utilized. TECHNIQUE AND CONTRAST: CTA scan of the thorax is performed with IV Contrast, patient injected with 63 mL of Isovue 370, pulm onary angiogram protocol. MIP Images are created on CT scanner and reviewed. FINDINGS: Sizable amount of air is seen in the proximal portion of the pulmonary trunk likely related to the co ntrast injection, not occluding the pulmonary trunk. The patient remained asymptomatic. No other defi nite filling defect within the pulmonary trunk, main pulmonary arteries, lobar, segmental and proxima l subsegmental branches to suggest pulmonary embolism. Distal subsegmental branches are suboptimally assessed. The pulmonary trunk measures 2.5 cm. Areas of consolidation/atelectasis is seen at the medial aspect of the middle lobe base which could r epresent acute inflammatory/infectious process. This was not appreciated in the previous CT scan. Rec ommend follow-up to complete resolution. Similar minimal changes are seen on the left side at the med ial aspect of the lingula. Grossly unremarkable lungs otherwise. Patent central airways. No pleural or pericardial effusion. No gross cardiomegaly. Subcentimeter bilateral axillary, hilar an d mediastinal lymph nodes, stable. Bulky liver. 4.3 cm right hepatic lobe posterior hypodensity, appr eciated previously and could represent a hepatic hemangioma. Further elective ultrasound confirmation is advised. Bulky spleen. Degenerative changes of the midthoracic spine. IMPRESSION: 1. No evidence of major or central pulmonary embolism. Pulmonary trunk air as described above. 2. Middle lobe areas of consolidation/atelectasis, not appreciated previously and probably representi ng acute inflammatory/infectious process. Recommend follow-up to complete resolution. 3. Indeterminate right hepatic lobe hypodensity yet stable, possibly hemangioma or other benign lesio n. Recommend further ultrasound assessment. Other incidental findings as described above.
== END | disposition home or self-care (01) ==
LOC: RADCTMAIN 07:32
PROVIDERS: ATTEND Family Medicine
DX: R06.02 Shortness of breath (principal)
CPT/HCPCS: 71275; Q9967

== ENCOUNTER → 2021-04-24 | Outpatient (CLI) | payer OTHER ==
--- NOTE | 2021-04-25 07:53 | ECHOF ---
Referral Reason:R06.02 shortness of breath MEASUREMENTS -------- HEIGHT: 165.1 cm WEIGHT: 66.7 kg BP: RVIDd: 2.4 cm (< 3.3) IVSd: 0.9 cm (0.6 - 1.1) LVIDd: 4.1 cm (3.9 - 5.3) LVPWd: 1.0 cm (0.6 - 1.1) IVSs: 1.3 cm LVIDs: 3.5 cm LVPWs: 0.9 cm LA Diam: 3.3 cm (2.7 - 3.8) LAESV Index (A-L): 19.56 ml/m Ao Diam: 2.8 cm (2.0 - 3.7) AV Cusp: 2.3 cm (1.5 - 2.6) LA Diam: 3.3 cm (2.7 - 3.8) MV EXCURSION: 22.907 mm (> 18.000) MV EF SLOPE: 121 mm/s (70 - 150) EPSS: 0.5 cm MV E Hcau: 0.62 m/s MV DecT: 119 ms MV A Chau: 0.56 m/s MV E/A Ratio: 1.11 RAP: 5.00 mmHg RVSP: 23.43 mmHg FINDINGS -------- Sinus rhythm. This was a technically good study. LV size, wall thickness and systolic function are normal, with an EF greater than 55%. The left edelmira tricular size is normal. The right ventricle is normal in size. Normal LA size by volume 22+/-6 ml/m2. The right atrial size is normal. The aortic valve is trileaflet, and appears structurally normal. No aortic stenosis or regurgitation. Mild mitral regurgitation is present. Mild tricuspid regurgitation present. Right ventricular systolic pressure is normal at < 35 mmHg. There is no pulmonic regurgitation present. There is no pericardial effusion. CONCLUSIONS -------- 1. LV size, wall thickness and systolic function are normal, with an EF greater than 55%. 2. The left ventricular size is normal. 3. The right ventricle is normal in size. 4. Normal LA size by volume 22+/-6 ml/m2. 5. The right atrial size is normal. 6. The aortic valve is trileaflet, and appears structurally normal. No aortic stenosis or regurgitati on. 7. Mild mitral regurgitation is present. 8. Mild tricuspid regurgitation present. 9. There is no pericardial effusion. FAMILY PROGRAM SPECIALIST: Noreen Alan RDCS
== END | disposition home or self-care (01) ==
LOC: RADECHMAIN 14:31
PROVIDERS: ATTEND Family Medicine
DX: I34.0 Nonrheumatic mitral (valve) insufficiency (principal); I07.1 Rheumatic tricuspid insufficiency
CPT/HCPCS: 93306

== ENCOUNTER 2021-07-03 05:05 | Emergency (ER) | payer OTHER ==
[2021-07-03 05:13] VITALS: BP 137/82; TEMP 98.1
[2021-07-03] MEDS ORDERED: predniSONE 50 MG TAB PO STA (06:18)
--- NOTE | 2021-07-03 06:21 | ED ---
General Adult HPI - General Chief complaint: Skin/Abscess/Foreign Body Stated complaint: rash Time Seen by Provider: 07/03/21 06:01 Source: patient Mode of arrival: ambulatory Limitations: no limitations - History of Present Illness Initial comments: 30-year-old female with a past medical history of asthma, psoriasis presents to the emergency room for a chief complaint of rash. Patient has a rash to the face. This has been ongoing for the past 3 days. Patient states 4 days ago she was outside for the first time in 6 months because she had longer bed and hadn't been exposed to the sun. The next day she had redness starting on her face. Thought it was a sunburn but then started to get bumps on her face. No new soaps or makeup. Patient did just finish Tamiflu. No other new meds. Patient has no other complaints at this time including shortness of breath, chest pain, abdominal pain, nausea or vomiting, headache, or visual changes. - Related Data Previous Rx's Medication Instructions Recorded Fluconazole [Diflucan] 200 mg PO DAILY #7 tab 10/22/19 Ipratropium-Albuterol Nebulize 3 ml INHALATION RT-Q4H 30 Days 10/22/19 [Duoneb 0.5 mg-3 mg/3 ml Soln] #100 ml Nystatin 100,000 Unit/ml Susp 500,000 unit PO QID 7 Days #30 ml 10/22/19 [Mycostatin Oral Susp] Sulfamethox-Tmp 800-160Mg [Bactrim 2 tab PO Q8HR 16 Days #96 tab 10/22/19 DS 800-160 mg] guaiFENesin [Mucinex] 600 mg PO Q12HR 30 Days #60 10/22/19 tablet.er predniSONE [Deltasone] See Taper PO BID 21 Days #70 tab 10/22/19 Famotidine [Pepcid] 20 mg PO BID #14 tablet 08/31/20 predniSONE 50 mg PO DAILY #5 tab 08/31/20 Butalb/APAP/Caff 50-325-40Mg 1 tab PO Q4H PRN #10 tablet 03/30/21 [Fioricet 50-325-40] predniSONE 50 mg PO DAILY #5 tablet 07/03/21 Allergies Allergy/AdvReac Type Severity Reaction Status Date / Time cephalexin monohydrate Allergy Dyspnea Verified 07/03/21 05:13 [From Keflex] Penicillins Allergy Swelling Verified 07/03/21 05:13 phenytoin sodium Allergy Unknown Verified 07/03/21 05:13 [From Dilantin] phenytoin sodium extended Allergy Unknown Verified 07/03/21 05:13 [From Dilantin] Review of Systems ROS Statement: Those systems with pertinent positive or pertinent negative responses have been documented in the HPI. ROS Other: All systems not noted in ROS Statement are negative. Past Medical History Past Medical History: Asthma History of Any Multi-Drug Resistant Organisms: None Reported Past Surgical History: No Surgical Hx Reported Past Psychological History: No Psychological Hx Reported Smoking Status: Current every day smoker Past Alcohol Use History: None Reported Past Drug Use History: Marijuana General Exam Limitations: no limitations General appearance: alert, in no apparent distress Head exam: Present: atraumatic Eye exam: Present: normal appearance, PERRL, EOMI. Absent: scleral icterus, conjunctival injection ENT exam: Present: normal exam, mucous membranes moist Neck exam: Present: normal inspection, full ROM. Absent: tenderness Respiratory exam: Present: normal lung sounds bilaterally. Absent: respiratory distress, wheezes Cardiovascular Exam: Present: regular rate, normal rhythm, normal heart sounds GI/Abdominal exam: Present: soft, normal bowel sounds. Absent: distended, tenderness Neurological exam: Present: alert Skin exam: Present: other (erythema with small papules noted to face. No swelling of lips tongue or throat. minimal edema left eyelid.) Course Vital Signs 07/03/21 05:10 Temperature 98.1 F Pulse Rate 125 H Respiratory 18 Rate Blood Pressure 137/82 O2 Sat by Pulse 100 Oximetry Medical Decision Making - Medical Decision Making Vitals are stable. Patient is tachycardic however patient is anxious. Likely sun reaction. No other new meds besides Tamiflu. Patient to be started on steroids today in the ER. Patient will follow up with her doctor and return for any worsening symptoms. Patient was also seen by Dr. Hill. Disposition Clinical Impression: Rash Disposition: HOME SELF-CARE Condition: Good Instructions (If sedation given, give patient instructions): Dermatitis (ED) Additional Instructions: Please take steroid as directed. Only use non scented gentle soap on the face. Follow-up with your doctor at your scheduled appointment this week. Return to the emergency room for any worsening symptoms. Prescriptions: predniSONE 50 mg PO DAILY #5 tablet Is patient prescribed a controlled substance at d/c from ED?: No Referrals: Deepa Nelson MD [Primary Care Provider] - 1-2 days Time of Disposition: 06:18
[2021-07-03 06:58] VITALS: PULSE 90; RESP 16
== END 2021-07-03 06:58 | disposition home or self-care (01) ==
LOC: EC 05:05
DX: R21 Rash and other nonspecific skin eruption (principal); F17.200 Nicotine dependence, unspecified, uncomplicated; Z88.0 Allergy status to penicillin; Z88.8 Allergy status to other drugs, medicaments and biological substances; Z88.2 Allergy status to sulfonamides
CPT/HCPCS: 99283; J7512

== ENCOUNTER 2021-07-31 03:21 | Emergency (ER) | payer OTHER ==
[2021-07-31 03:35] VITALS: BP 150/99; PULSE 90; RESP 18; TEMP 98.3
--- NOTE | 2021-07-31 04:05 | ED ---
ENT HPI - General Chief complaint: ENT Stated complaint: Sore Throat Time Seen by Provider: 07/31/21 03:44 Source: patient, RN notes reviewed, old records reviewed Mode of arrival: ambulatory Limitations: no limitations - History of Present Illness Initial comments: This is a 31-year-old female to the emergency department for evaluation patient presents today for evaluation of sore throat severe. Hurts to swallow. Patient states she had a long bout of covert long covert and the sore throat began sometime after. Patient has persistent sore throat with hoarse voice. But no fevers, no trauma. No difficulty breathing. No cough or congestion. MD complaint: sore throat -: days(s) Location: throat Severity: moderate Severity scale (1-10): 6 Quality: sharp Consistency: constant Improves with: none Worsens with: swallowing Associated Symptoms: sore throat, other (Recent coronavirus diagnosis) - Related Data Previous Rx's Medication Instructions Recorded Fluconazole [Diflucan] 200 mg PO DAILY #7 tab 10/22/19 Ipratropium-Albuterol Nebulize 3 ml INHALATION RT-Q4H 30 Days 10/22/19 [Duoneb 0.5 mg-3 mg/3 ml Soln] #100 ml Nystatin 100,000 Unit/ml Susp 500,000 unit PO QID 7 Days #30 ml 10/22/19 [Mycostatin Oral Susp] Sulfamethox-Tmp 800-160Mg [Bactrim 2 tab PO Q8HR 16 Days #96 tab 10/22/19 DS 800-160 mg] guaiFENesin [Mucinex] 600 mg PO Q12HR 30 Days #60 10/22/19 tablet.er predniSONE [Deltasone] See Taper PO BID 21 Days #70 tab 10/22/19 Famotidine [Pepcid] 20 mg PO BID #14 tablet 08/31/20 predniSONE 50 mg PO DAILY #5 tab 08/31/20 Butalb/APAP/Caff 50-325-40Mg 1 tab PO Q4H PRN #10 tablet 03/30/21 [Fioricet 50-325-40] predniSONE 50 mg PO DAILY #5 tablet 07/03/21 Allergies Allergy/AdvReac Type Severity Reaction Status Date / Time cephalexin monohydrate Allergy Dyspnea Verified 07/31/21 03:35 [From Keflex] Penicillins Allergy Swelling Verified 07/31/21 03:35 phenytoin sodium Allergy Unknown Verified 07/31/21 03:35 [From Dilantin] phenytoin sodium extended Allergy Unknown Verified 07/31/21 03:35 [From Dilantin] Review of Systems ROS Statement: Those systems with pertinent positive or pertinent negative responses have been documented in the HPI. ROS Other: All systems not noted in ROS Statement are negative. Past Medical History Past Medical History: Asthma History of Any Multi-Drug Resistant Organisms: None Reported Past Surgical History: No Surgical Hx Reported Past Psychological History: No Psychological Hx Reported Smoking Status: Current every day smoker Past Alcohol Use History: None Reported Past Drug Use History: Marijuana General Exam General appearance: alert, in no apparent distress Head exam: Present: atraumatic, normocephalic, normal inspection Eye exam: Present: normal appearance, PERRL, EOMI. Absent: scleral icterus, conjunctival injection, periorbital swelling ENT exam: Present: normal exam, mucous membranes moist Neck exam: Present: normal inspection. Absent: tenderness, meningismus, lymphadenopathy Respiratory exam: Present: normal lung sounds bilaterally. Absent: respiratory distress, wheezes, rales, rhonchi, stridor Cardiovascular Exam: Present: regular rate, normal rhythm, normal heart sounds. Absent: systolic murmur, diastolic murmur, rubs, gallop, clicks GI/Abdominal exam: Present: soft, normal bowel sounds. Absent: distended, tenderness, guarding, rebound, rigid Extremities exam: Present: normal inspection, full ROM, normal capillary refill. Absent: tenderness, pedal edema, joint swelling, calf tenderness Back exam: Present: normal inspection Neurological exam: Present: alert, oriented X3, CN II-XII intact Psychiatric exam: Present: normal affect, normal mood Skin exam: Present: warm, dry, intact, normal color. Absent: rash Course Vital Signs 07/31/21 03:28 Temperature 98.3 F Pulse Rate 90 Respiratory 18 Rate Blood Pressure 150/99 O2 Sat by Pulse 98 Oximetry - Reevaluation(s) Reevaluation #1: 07/31/21 05:23 Medical records reviewed Reevaluation #2: 07/31/21 05:23 Patient informed of results and questions answered Reevaluation #3: 07/31/21 05:23 Patient has improvement in symptoms here in the ER Medical Decision Making - Medical Decision Making 31 female able to take pills and swallow, filled concern of patient's inability to eat or drink. Patient does have normal computed tomography scan of her soft tissue neck some lymphadenopathy mild. She given be discharged home with pain control - Lab Data Lab Results 07/31/21 Range/Units 04:02 Group A Strep Rapid Negative (Negative) - Radiology Data Radiology results: report reviewed (CT soft tissue neck does show lymphadenopathy), image reviewed Disposition Clinical Impression: Sore throat, Cervical lymphadenopathy Disposition: HOME SELF-CARE Condition: Good Instructions (If sedation given, give patient instructions): Lymphadenopathy (ED), Pharyngitis (ED) Is patient prescribed a controlled substance at d/c from ED?: No Referrals: Deepa Nelson MD [Primary Care Provider] - 1-2 days
--- NOTE | 2021-07-31 04:27 | CT ---
EXAMINATION TYPE: CT soft tissue neck wo con DATE OF EXAM: 07/31/2021 COMPARISON: None HISTORY: sore throat >[address] DLP: 238.9 mGycm Automated exposure control for dose reduction was used. Images obtained from the top of the frontal sinuses to the great vessels with no contrast. There is normal branching pattern of the great vessels. No evidence of a superior mediastinal mass. T hyroid gland is symmetric. There are bilateral anterior triangle cervical lymph nodes that measure up to 1.5 cm. Submandibular s alivary glands appear normal. There are also some multiple posterior triangle cervical lymph nodes me asuring less than 1 cm. The parotid glands are symmetric. There is mucosal thickening in the maxillar y ethmoid frontal sinuses. No focal bone destruction. Orbital margins are intact. No evidence of retr o-orbital mass. The maxilla is intact. The tonsils are symmetric. Adenoids measure 1.4 cm. Prevertebral soft tissues are intact. The tongue appears normal. Epiglottis is normal. Subglottic trachea appears normal. Tonsils are not enlarged. Te mporal bones appear intact. There is normal aeration of the mastoid sinuses. IMPRESSION: There are bilateral prominent anterior and posterior triangle cervical lymph nodes that are likely in flammatory. Sinusitis. Mild hypertrophy of the adenoids. Normal epiglottis.
[2021-07-31] MEDS ORDERED: ACETAMINOPHEN TAB 500 MG TAB PO STA (05:01)
[2021-07-31] MEDS ORDERED: ETODOLAC 400 MG TAB PO STA (05:01)
[2021-07-31] MEDS ORDERED: DEXAMETHASONE SOD PHOSPHATE 10 MG/ML 1 ML VIAL IM STA (05:01)
[2021-07-31] MEDS ORDERED: Acetaminophen-Codeine 300-30mg TAB PO STA (05:21)
[2021-07-31] MEDS ORDERED: ACET/COD 300 MG/30 MG STARTER PACK 6 TAB BTL PO STA (05:21)
== END 2021-07-31 05:37 | disposition home or self-care (01) ==
LOC: EC 03:21
DX: J02.9 Acute pharyngitis, unspecified (principal); R59.0 Localized enlarged lymph nodes; J45.909 Unspecified asthma, uncomplicated; F17.200 Nicotine dependence, unspecified, uncomplicated; F12.90 Cannabis use, unspecified, uncomplicated; Z79.51 Long term (current) use of inhaled steroids; Z79.52 Long term (current) use of systemic steroids; Z79.899 Other long term (current) drug therapy
CPT/HCPCS: 87081; 87430; 70490; 99283; 96372; J1100

== ENCOUNTER → 2022-01-29 | Outpatient (CLI) | payer OTHER ==
--- NOTE | 2022-01-29 10:57 | FL ---
EXAMINATION TYPE: FL barium swallow DATE OF EXAM: 01/29/2022 10:20 AM COMPARISON: None CLINICAL INDICATION:Female, 31 years old with history of R13.12 DYSPHAGIA; TECHNIQUE: The procedure was explained and patient history elicited. All patient questions were ans wered prior to start of procedure. Multiple spot fluoroscopic images of the esophagus were obtained a fter the oral ingestion of effervescent crystals and liquid barium as the contrast agent. A electric fork operator ra diograph of the chest was obtained and reviewed. Fluoroscopic time: 15 seconds Fluoroscopic images: 0 Radiographs taken: 126 FINDINGS: The esophagus demonstrates normal primary and secondary peristalsis. The esophageal mucosa is smooth without evidence of focal stricture, ulceration, or abnormal outpouching. No gastroesophageal reflu x disease was identified IMPRESSION: 1. Normal esophagram.
== END | disposition home or self-care (01) ==
LOC: RADUSWWP 09:43
PROVIDERS: ATTEND Family Medicine
DX: R13.12 Dysphagia, oropharyngeal phase (principal)
CPT/HCPCS: 74220

== ENCOUNTER 2023-03-02 19:17 | Emergency (ER) | payer OTHER ==
[2023-03-02 19:41] VITALS: BP 141/82; PULSE 104; RESP 20; TEMP 98.1
--- NOTE | 2023-03-02 20:45 | ED ---
General Adult HPI - General Chief complaint: Syncope Stated complaint: passed out,shingles Time Seen by Provider: 03/02/23 20:40 Source: patient Mode of arrival: ambulatory Limitations: no limitations - History of Present Illness Initial comments: Patient presents to the ED stating that she had a near syncopal episode while sitting in her bed this evening. Patient states that she was diagnosed with shingles a few weeks ago, and she states that she completed a course of antivirals for her shingles. Patient states that she continues to have pain in the area of her shingles along the left side of her head, and she states that she developed severe pain when she touched the left side of her head this evening, which precipitated her near syncopal episode this evening. Patient states that she had a similar episode while at work yesterday as well. Patient denies falling or trauma/injury. Patient denies fever or chills, focal numbness/weakness/neuro deficit, neck/back/extremity pain, chest pain, dyspnea, cough or cold symptoms, palpitations, abdominal pain, nausea/vomiting/diarrhea, bloody or melanotic stool, dysuria or urinary symptoms, or any other symptoms or complaints. - Related Data Previous Rx's Medication Instructions Recorded Fluconazole [Diflucan] 200 mg PO DAILY #7 tab 10/22/19 Ipratropium-Albuterol Nebulize 3 ml INHALATION RT-Q4H 30 Days 10/22/19 [Duoneb 0.5 mg-3 mg/3 ml Soln] #100 ml Nystatin 100,000 Unit/ml Susp 500,000 unit PO QID 7 Days #30 ml 10/22/19 [Mycostatin Oral Susp] Sulfamethox-Tmp 800-160Mg [Bactrim 2 tab PO Q8HR 16 Days #96 tab 10/22/19 DS 800-160 mg] guaiFENesin [Mucinex] 600 mg PO Q12HR 30 Days #60 10/22/19 tablet.er predniSONE [Deltasone] See Taper PO BID 21 Days #70 tab 10/22/19 Famotidine [Pepcid] 20 mg PO BID #14 tablet 08/31/20 predniSONE 50 mg PO DAILY #5 tab 08/31/20 Butalb/APAP/Caff 50-325-40Mg 1 tab PO Q4H PRN #10 tablet 03/30/21 [Fioricet 50-325-40] predniSONE 50 mg PO DAILY #5 tablet 07/03/21 Allergies Allergy/AdvReac Type Severity Reaction Status Date / Time cephalexin monohydrate Allergy Dyspnea Verified 03/02/23 19:26 [From Keflex] Penicillins Allergy Swelling Verified 03/02/23 19:26 phenytoin sodium Allergy Unknown Verified 03/02/23 19:26 [From Dilantin] phenytoin sodium extended Allergy Unknown Verified 03/02/23 19:26 [From Dilantin] Review of Systems ROS Statement: Those systems with pertinent positive or pertinent negative responses have been documented in the HPI. ROS Other: All systems not noted in ROS Statement are negative. Past Medical History Past Medical History: Asthma History of Any Multi-Drug Resistant Organisms: None Reported Past Surgical History: No Surgical Hx Reported Past Psychological History: No Psychological Hx Reported Smoking Status: Current every day smoker Past Alcohol Use History: None Reported Past Drug Use History: Marijuana General Exam Limitations: no limitations General appearance: alert, in no apparent distress Head exam: Present: other (Vesicular rash noted to the left forehead/left scalp consistent with shingles) Eye exam: Present: normal appearance, PERRL, EOMI ENT exam: Present: mucous membranes moist Respiratory exam: Present: normal lung sounds bilaterally. Absent: respiratory distress, wheezes, rales, rhonchi, stridor Cardiovascular Exam: Present: regular rate, normal rhythm, normal heart sounds, other (Normal radial pulses bilaterally) GI/Abdominal exam: Present: soft. Absent: distended, tenderness, guarding Extremities exam: Absent: tenderness, pedal edema Neurological exam: Present: alert, oriented X3, CN II-XII intact. Absent: motor sensory deficit Skin exam: Present: warm, dry Course Vital Signs 03/02/23 19:22 Temperature 98.1 F Pulse Rate 104 H Respiratory 20 Rate Blood Pressure 141/82 O2 Sat by Pulse 99 Oximetry - Reevaluation(s) Reevaluation #1: 03/02/23 22:20 Patient denies development of any new symptoms while in the ED. Patient remains alert and breathing comfortably. Patient is aware of her test results, and she feels comfortable being discharged home at this time. Patient was counseled about shingles/neuralgia and near syncope, and she was clearly explained return and follow-up instructions. She was instructed to follow up closely with her primary care provider. She feels comfortable with this plan. EKG Findings - EKG Comments: EKG Findings:: ED physician interpretation (interpreted by me): Borderline sinus tachycardia, ventricular rate of 100 bpm, normal [place] and QRS intervals, normal QT interval, no ectopy, normal axis, nonspecific T-wave abnormality Medical Decision Making - Medical Decision Making Was pt. sent in by a medical professional or institution (, BABAR, TEXTILE MACHINE MECHANIC, urgent care, hospital, or snf...) When possible be specific @ -No Did you speak to anyone other than the patient for history (EMS, parent, family, police, friend...)? What history was obtained from this source @ -No Did you review nursing and triage notes (agree or disagree)? Why? @ -I reviewed and agree with nursing and triage notes Were old charts reviewed (outside hosp., previous admission, EMS record, old EKG, old radiological studies, urgent care reports/EKG's, snf records)? Report findings @ -No old charts were reviewed Differential Diagnosis (chest pain, altered mental status, abdominal pain women, abdominal pain men, vaginal bleeding, weakness, fever, dyspnea, syncope, hea dache, dizziness, GI bleed, back pain, seizure, CVA, palpatations, mental health, musculoskeletal)? @ -Differential Syncope: Vasovagal episode, hypertrophic cardiomyopathy, dysrhythmia, tachycardia, bradycardia, hypovolemia, anemia, intracranial hemorrhage, hypoglycemia, shingle s, this is not meant to be an all-inclusive list. EKG interpreted by me (3pts min.). @ -As above X-rays interpreted by me (1pt min.). @ -Chest x-ray was reviewed myself and shows no acute abnormality. I agree with the radiologist's interpretation as above. CT interpreted by me (1pt min.). @ -None done U/S interpreted by me (1pt. min.). @ -None done What testing was considered but not performed or refused? (CT, X-rays, U/S, la bs)? Why? @ -None What meds were considered but not given or refused? Why? @ -None Did you discuss the management of the patient with other professionals (professionals i.e. , BABAR, TEXTILE MACHINE MECHANIC, lab, RT, psych nurse, social work administrator, medication specialist, teacher, house officer, case aide)? Give summary @ -No Was smoking cessation discussed for >3mins.? @ -No Was critical care preformed (if so, how long)? @ -No Were there social determinants of health that impacted care today? How? (Homelessness, low income, unemployed, alcoholism, drug addiction, transportation, low edu. Level, literacy, decrease access to med. care, detention, rehab)? @ -No Was there de-escalation of care discussed even if they declined (Discuss DNR or withdrawal of care, Hospice)? DNR status @ -No What co-morbidities impacted this encounter? (DM, HTN, Smoking, COPD, CAD, Cancer, CVA, ARF, Chemo, Hep., AIDS, mental health diagnosis, sleep apnea, morbid obesity)? @ -None Was patient admitted / discharged? Hospital course, mention meds given and route, prescriptions, significant lab abnormalities, going to OR and other pertinent info. @ -Patient reports having a near-syncopal episode after reporting severe pain from touching the left side of her head where she has shingles. Given his history, I suspect that the patient's near syncopal episode was likely vasovagal in etiology. Patient's chest x-ray, labs and EKG are fairly unremarkable. I do not suspect an emergent medical condition at this time. Patient was counseled about near syncope, and she was clearly explained return and follow-up instructions. Patient was instructed to follow up closely with her primary care provider. Patient feels comfortable with this plan. Undiagnosed new problem with uncertain prognosis? @ -No Drug Therapy requiring intensive monitoring for toxicity (Heparin, Nitro, Insulin, Cardizem)? @ -No Were any procedures done? @ -No Diagnosis/symptom? @ -Near syncope Acute, or Chronic, or Acute on Chronic? @ -Acute Uncomplicated (without systemic symptoms) or Complicated (systemic symptoms)? @ -default Side effects of treatment? @ -No Exacerbation, Progression, or Severe Exacerbation? @ -No Poses a threat to life or bodily function? How? (Chest pain, [place], [place], pneumonia, PE, COPD, DKA, ARF, appy, cholecystitis, CVA, Diverticulitis, Homicidal, Suicidal, threat to staff... and all critical care pts) @ -No - Lab Data Result diagrams: 03/02/23 21:45 03/02/23 21:45 Lab Results 03/02/23 03/02/23 Range/Units 21:45 21:45 WBC 3.7 L (3.8-10.6) k/uL RBC 4.52 (3.80-5.40) m/uL Hgb 14.1 (11.4-16.0) gm/dL Hct 40.9 (34.0-46.0) % MCV 90.5 (80.0-100.0) fL MCH 31.2 (25.0-35.0) pg MCHC 34.4 (31.0-37.0) g/dL RDW 13.8 (11.5-15.5) % Plt Count 151 (150-450) k/uL MPV 7.9 Neutrophils % 60 % Lymphocytes % 32 % Monocytes % 4 % Eosinophils % 2 % Basophils % 1 % Neutrophils # 2.2 (1.3-7.7) k/uL Lymphocytes # 1.2 (1.0-4.8) k/uL Monocytes # 0.2 (0-1.0) k/uL Eosinophils # 0.1 (0-0.7) k/uL Basophils # 0.0 (0-0.2) k/uL Sodium 139 (137-145) mmol/L Potassium 3.5 (3.5-5.1) mmol/L Chloride 106 (98-107) mmol/L Carbon Dioxide 24 (22-30) mmol/L Anion Gap 9 mmol/L BUN 12 (7-17) mg/dL Creatinine 0.66 (0.52-1.04) mg/dL Est GFR (CKD-EPI)AfAm >90 (>60 ml/min/1.73 sqM) Est GFR (CKD-EPI)NonAf >90 (>60 ml/min/1.73 sqM) Glucose 114 H (74-99) mg/dL Calcium 9.2 (8.4-10.2) mg/dL Total Bilirubin 0.5 (0.2-1.3) mg/dL AST 21 (14-36) U/L ALT 16 (4-34) U/L Alkaline Phosphatase 63 (38-126) U/L Total Protein 7.9 (6.3-8.2) g/dL Albumin 4.4 (3.5-5.0) g/dL HCG, Qual Not Detected - Radiology Data Chest x-ray: No acute pulmonary process. Disposition Clinical Impression: Near syncope Disposition: HOME SELF-CARE Condition: Stable Instructions (If sedation given, give patient instructions): Shingles (ED), Near Syncope (ED) Additional Instructions: Return to the ER immediately should you develop new or worsening pain, feeling faint or fainting, shortness of breath, a fever, chest pain, or new or worsening symptoms. Follow up closely with your primary care provider. Is patient prescribed a controlled substance at d/c from ED?: No Referrals: Deepa Nelson MD [Primary Care Provider] - 1-2 days Time of Disposition: 22:29
[2023-03-02 21:55] LABS: Basophils % (A) 1 %; Eosinophils # (A) 0.1 k/uL (0-0.7); Eosinophils % (A) 2 %; HCT 40.9 % (34.0-46.0); HGB 14.1 gm/dL (11.4-16.0); Lymphocytes # (A) 1.2 k/uL (1.0-4.8); Lymphocytes % (A) 32 %; MCH 31.2 pg (25.0-35.0); MCHC 34.4 g/dL (31.0-37.0); MCV 90.5 fL (80.0-100.0); Mean Platelet Volume 7.9; Monocytes # (A) 0.2 k/uL (0-1.0); Monocytes % (A) 4 %; Neutrophils # (A) 2.2 k/uL (1.3-7.7); Neutrophils % (A) 60 %; Platelet Count 151 k/uL (150-450); RBC 4.52 m/uL (3.80-5.40); RDW 13.8 % (11.5-15.5); WBC 3.7 k/uL (3.8-10.6)
[2023-03-02 22:04] LABS: ALT 16 U/L (4-34); AST 21 U/L (14-36); African American GFR (CKD) >90 (>60 ml/min/1.73 sqM); Albumin 4.4 g/dL (3.5-5.0); Alkaline Phosphatase 63 U/L (38-126); Anion Gap 9 mmol/L; Blood Urea Nitrogen 12 mg/dL (7-17); Calcium 9.2 mg/dL (8.4-10.2); Carbon Dioxide 24 mmol/L (22-30); Chloride 106 mmol/L (98-107); Glucose 114 mg/dL (74-99); Non-African American GFR(CKD) >90 (>60 ml/min/1.73 sqM); Potassium 3.5 mmol/L (3.5-5.1); Sodium 139 mmol/L (137-145); Total Bilirubin 0.5 mg/dL (0.2-1.3); Total Protein 7.9 g/dL (6.3-8.2)
[2023-03-02 22:16] LABS: HCG,Qualitative Serum Not Detected
--- NOTE | 2023-03-02 22:23 | XR ---
EXAMINATION TYPE: XR chest 2V DATE OF EXAM: 03/02/2023 COMPARISON: 10/22/2019 INDICATION: Syncope, shingles TECHNIQUE: Frontal and lateral views of the chest are obtained. FINDINGS: The heart size is normal. The pulmonary vasculature is normal. The lungs are clear. IMPRESSION: 1. No acute pulmonary process.
== END 2023-03-02 22:31 | disposition home or self-care (01) ==
LOC: EC 19:17
DX: R55 Syncope and collapse (principal); J45.909 Unspecified asthma, uncomplicated; F12.90 Cannabis use, unspecified, uncomplicated; F17.200 Nicotine dependence, unspecified, uncomplicated; Z88.0 Allergy status to penicillin; Z88.1 Allergy status to other antibiotic agents; Z88.8 Allergy status to other drugs, medicaments and biological substances
CPT/HCPCS: 36415; 71046; 80053; 84703; 85025; 93005; 99284

== ENCOUNTER → 2023-08-16 | Outpatient (CLI) | payer OTHER ==
[2023-08-16 18:15] LABS: HCT 31.4 % (37.2-46.3); HGB 10.2 g/dL (12.0-15.0); MCH 29.8 pg (27.0-32.0); MCHC 32.5 g/dL (32.0-37.0); MCV 91.8 FL (80.0-97.0); Mean Platelet Volume 10.7 FL (9.5-12.2); NRBC Per 100 WBC 0 X 10*3/uL (0.00-0.01); Platelet Count 267 X 10*3/uL (140-440); RBC 3.42 X 10*6/uL (4.10-5.20); RDW 13.8 % (11.5-14.5); WBC 4.25 X 10*3/uL (4.50-10.00)
[2023-08-16 18:16] LABS: Basophils # (A) 0.01 X 10*3/uL (0.00-0.10); Basophils % (A) 0.2 %; Eosinophils # (A) 0.14 X 10*3/uL (0.04-0.35); Eosinophils % (A) 3.3 %; Lymphocytes # (A) 1.05 X 10*3/uL (0.90-5.00); Lymphocytes % (A) 24.7 %; Monocytes # (A) 0.35 X 10*3/uL (0.20-1.00); Monocytes % (A) 8.2 %; Neutrophils # (A) 2.69 X 10*3/uL (1.80-7.70); Neutrophils % (A) 63.4 %
[2023-08-16 18:23] LABS: BUN/Creat Ratio 11.29 Ratio (12.00-20.00); Blood Urea Nitrogen 7.9 mg/dL (9.0-27.0); Carbon Dioxide 27.9 mmol/L (21.6-31.8); Chloride 106 mmol/L (96-109); Glucose 91 mg/dL (70-110); Potassium 3.5 mmol/L (3.5-5.5); Sodium 143 mmol/L (135-145)
[2023-08-16 18:24] LABS: ALT 9 U/L (8-44); AST 16 U/L (13-35); Albumin 3.7 g/dL (3.8-4.9); Albumin/Globulin Ratio 0.92 Ratio (1.60-3.17); Alkaline Phosphatase 74 U/L (41-126); Calcium 9.1 mg/dL (8.7-10.3); Total Bilirubin <0.2 mg/dL (0.3-1.2); Total Protein 7.7 g/dL (6.2-8.2)
== END | disposition home or self-care (01) ==
LOC: LABWHC1 13:55
PROVIDERS: ATTEND Physician Assistant
DX: B20 Human immunodeficiency virus [HIV] disease (principal); E87.6 Hypokalemia
CPT/HCPCS: 36415; 80053; 85025